=== PATIENT | female | born 1945 | race Caucasian/White ===

== ENCOUNTER 2016-08-22 08:53 | Outpatient (CLI) | payer MEDICARE | END 2016-08-22 08:54 | disposition home or self-care (01) | DX: Z12.31 Encounter for screening mammogram for malignant neoplasm of breast (principal); Z85.3 Personal history of malignant neoplasm of breast ==

== ENCOUNTER 2017-08-14 09:29 | Emergency (ER) | payer MEDICARE ==
[2017-08-14] MEDS ORDERED: DEXAMETHASONE 10 MG/ML VIAL PO STA (10:58)
--- NOTE | 2017-08-14 11:01 | ED Physician Documentation ---
PD HPI BACK PAIN - Stated complaint Stated Complaint: BACK SPASM - Chief complaint Chief Complaint: Back Pain - History obtained from History obtained from: Patient, Family - History of Present Illness Timing - onset: How many days ago (5) Timing - duration: Days (5) Timing - details: Abrupt onset, Still present Location: Lower, Left Quality: Pain, Spasm, Sharp Associated symptoms: No: Fever, Weakness, Numbness, Incontinent of urine, Unable to urinate, Hematuria, Incontinent of stool Improves with: Rest, Position Worsened by: Movement, Other (lying down or sitting) Similar symptoms before: Has not had sx before Recently seen: Not recently seen - Additional information Additional information: 71-year-old female developed some lower back pain while sitting on the couch about 1-1/2 weeks ago and then 5 days ago she developed acute left lower back pain when 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 She has had this pain in her left lower back she is not having any radiation of the pain and she has been sitting on a heating pack most of the day yesterday. Review of Systems Constitutional: denies: Fever, Chills, Fatigue Eyes: denies: Decreased vision Ears: denies: Ear pain Nose: denies: Congestion Throat: denies: Sore throat Respiratory: denies: Cough GI: denies: Vomiting : denies: Dysuria Skin: denies: Rash Musculoskeletal: reports: Back pain. denies: Neck pain, Extremity pain Neurologic: denies: Generalized weakness, Focal weakness, Numbness PD PAST MEDICAL HISTORY - Past Medical History Past Medical History: Yes Cardiovascular: High cholesterol Respiratory: None Endocrine/Autoimmune: Type 2 diabetes GI: None : None HEENT: Glaucoma Psych: None Musculoskeletal: None Derm: None - Past Surgical History Past Surgical History: Yes - Present Medications Home Medications: Ambulatory Orders Medication Instructions Recorded Confirmed Aspirin [Aspir 81] 81 mg PO DAILY 03/15/14 08/14/17 Calcium Carb/Vitamin D3/Vit K1 1,000 units PO DAILY 03/15/14 08/14/17 [Calcium + D Soft Chewable Tab] Cholesterol Med 10 mg PO DAILY 03/15/14 08/14/17 Lisinopril 5 mg PO DAILY 03/15/14 08/14/17 Metformin HCl 500 mg PO DAILY 03/15/14 08/14/17 [place]-3/Dha/Epa/Fish Oil [Fish Oil] 500 mg PO DAILY 03/15/14 08/14/17 Cyclobenzaprine [Flexeril] 10 mg PO TID PRN #20 tablet 08/14/17 HYDROcod/ACETAM 5/325 [[place] 5/325] 1 - 2 ea PO Q6H PRN #15 tablet 08/14/17 - Allergies Allergies/Adverse Reactions: Allergies Allergy/AdvReac Type Severity Reaction Status Date / Time No Known Drug Allergies Allergy Verified 03/15/14 15:19 - Social History Does the pt smoke?: No Smoking Status: Never smoker Does the pt drink ETOH?: No Does the pt have substance abuse?: No - Immunizations Immunizations are current?: Yes PD ED PE NORMAL - Vitals Vital signs reviewed: Yes (tachy and hypertenwsive ) - General General: Alert and oriented X 3, No acute distress, Well developed/nourished - HEENT HEENT: Atraumatic, PERRL - Respiratory Respiratory: No respiratory distress - Back Back: No CVA TTP, No spinal TTP, Other (There is mild tenderness to the lower lumbar paraspinous muscles on the left side. This does not extend into the sciatic notch. ) - Derm Derm: Normal color, Warm and dry, No rash - Extremities Extremities: No deformity, No edema - Neuro Neuro: No motor deficit Eye Opening: Spontaneous Motor: Obeys Commands Verbal: Oriented GCS Score: 15 - Psych Psych: Normal mood, Normal affect Results - Vitals Vitals: Vital Signs - 24 hr 08/14/17 08/14/17 09:37 11:27 Temperature 35.4 C L Heart Rate 122 H 103 H Respiratory 17 16 Rate Blood Pressure 122/82 H 107/66 O2 Saturation 99 97 Oxygen O2 Source Room air PD MEDICAL DECISION MAKING - ED course Complexity details: re-evaluated patient, considered differential, d/w patient, d/w family ED course: 71-year-old female with a history of diabetes has developed a low back pain acute spasm and has been using a heating pack. She has localized muscle spasm and here in the emergency department she is administered dexamethasone and we will provide her with some pain medication muscle relaxant as well. I have not indicated to the patient that this will interfere with her diabetes to watch her sugars closely. Departure - Departure Disposition: Home, Self Care Clinical Impression: Spasm of lumbar paraspinous muscle Condition: Stable Instructions: ED Spasm Back No Trauma Follow-Up: Mike Medley MD [Primary Care Provider] - Prescriptions: Cyclobenzaprine [Flexeril] 10 mg PO TID PRN #20 tablet PRN Reason: Spasms HYDROcod/ACETAM 5/325 [[place] 5/325] 1 - 2 ea PO Q6H PRN #15 tablet PRN Reason: Pain
[2017-08-14] MEDS ORDERED: CHERRY SYRUP 10 ML UDC PO ONE (11:09)
[2017-08-14 11:28] VITALS: BP 107/66
== END 2017-08-14 11:38 | disposition home or self-care (01) ==
LOC: ED 09:29
DX: M62.830 Muscle spasm of back (principal); M54.5 Low back pain; E11.9 Type 2 diabetes mellitus without complications; Z79.84 Long term (current) use of oral hypoglycemic drugs; Z79.82 Long term (current) use of aspirin
CPT/HCPCS: 99283; 99284; A9270

== ENCOUNTER 2017-08-27 15:06 | Outpatient (CLI) | payer MEDICARE ==
--- NOTE | 2017-08-28 15:24 | Mammography Report ---
DATE OF SERVICE: 08/27/2017 DIGITAL SCREENING MAMMOGRAM: 08/27/2017 CLINICAL INDICATION: A 71-year-old with personal history of left breast cancer , status post lumpectomy and chemoradiation, for screening. COMPARISON: 07/2016, 07/2015, 07/2014, 07/2013, 06/2013, 06/2012, 06/2011. TECHNIQUE: Routine CC and MLO projections were obtained of the breasts. FINDINGS: The breasts demonstrate scattered fibroglandular densities bilaterally. Coarse and punctate, typically benign calcifications are present. Postoperative and posttreatment changes in the left upper outer quadrant are stable. No suspicious masses, clustered microcalcifications, or regions of architectural distortion are identified. IMPRESSION: BENIGN FINDINGS. RECOMMENDATION: ROUTINE ANNUAL SCREENING UNLESS OTHERWISE CLINICALLY INDICATED. BIRADS CATEGORY 2 BENIGN FINDINGS. STANDARD QUALIFYING STATEMENTS: 1. This examination was reviewed with the aid of Computer-Aided Detection (CAD) . 2. A negative or benign imaging report should not delay biopsy if clinically suspicious findings are present. Consider surgical consultation if warranted. More than 5 % of cancers are not identified by imaging. 3. Dense breasts may obscure an underlying neoplasm. TD: 08/28/2017 16:23 MIKE
== END 2017-08-27 15:07 | disposition home or self-care (01) ==
LOC: DI 15:06
PROVIDERS: ATTEND Family Medicine
DX: Z12.31 Encounter for screening mammogram for malignant neoplasm of breast (principal); Z85.3 Personal history of malignant neoplasm of breast
CPT/HCPCS: 77067

== ENCOUNTER 2017-11-26 08:00 | Outpatient (CLI) | payer MEDICARE ==
[2017-11-26 14:03] LABS: CALCIUM 9.7 mg/dL (8.5-10.3); CREATININE 0.9 mg/dL (0.4-1.0)
== END 2017-11-26 08:01 | disposition home or self-care (01) ==
LOC: LAB.WCP 08:00
PROVIDERS: ATTEND Family Medicine
DX: E11.9 Type 2 diabetes mellitus without complications (principal); I10 Essential (primary) hypertension
CPT/HCPCS: 36415; 80048

== ENCOUNTER 2018-10-23 07:42 | Outpatient (CLI) | payer MEDICARE ==
--- NOTE | 2018-10-24 10:45 | Mammography Report ---
Reason: SCREENING MAMMO Procedure Date: 10/23/2018 Accession Number: [id number] / [id number] Procedure: [facility]RE - Screening Mammo w/Tyler CPT Code: FULL RESULT: EXAM: Screening Mammo w/Tyler DATE: 10/23/2018 8:35 AM CLINICAL HISTORY: Screening encounter. Personal history of breast cancer status post left lumpectomy and chemoradiation. TECHNIQUE: Bilateral CC and MLO views were obtained. A left laterally exaggerated CC views obtained. COMPARISON: 08/27/2017 through 07/24/2013. FINDINGS: The breasts demonstrate heterogeneously dense fibroglandular parenchyma bilaterally. Postsurgical and posttreatment changes in the left breast are stable. There are coarse typically benign right breast calcifications. No suspicious masses, clustered microcalcifications, or regions of architectural distortion are identified. IMPRESSION: Benign findings RECOMMENDATION: Routine annual screening unless otherwise clinically indicated. BIRADS CATEGORY 2: Benign findings STANDARD QUALIFYING STATEMENTS: 1. This examination was not reviewed with the aid of Computer-Aided Detection (CAD). 2. A negative or benign imaging report should not delay biopsy if clinically suspicious findings are present. Consider surgical consultation if warrented. More than 5% of cancers are not identified by imaging. 3. Dense breasts may obscure an underlying neoplasm. 4. This examination was reviewed with the aid of 3D breast imaging (tomosynthesis).
== END 2018-10-23 07:43 | disposition home or self-care (01) ==
LOC: DI 07:42
DX: Z12.31 Encounter for screening mammogram for malignant neoplasm of breast (principal); Z08 Encounter for follow-up examination after completed treatment for malignant neoplasm; Z85.3 Personal history of malignant neoplasm of breast
CPT/HCPCS: 77063; 77067

== ENCOUNTER 2019-03-17 08:00 | Outpatient (CLI) | payer MEDICARE ==
[2019-03-17 14:17] LABS: ALBUMIN 3.9 g/dL (3.2-5.5); ALBUMIN/GLOBULIN RATIO 1.2 (1.0-2.2); BILIRUBIN,TOTAL 0.5 mg/dL (0.2-1.0); CALCIUM 9.5 mg/dL (8.5-10.3); TOTAL PROTEIN 7.1 g/dL (6.7-8.2)
== END 2019-03-17 23:59 | disposition home or self-care (01) ==
LOC: LAB.WCP 08:00
PROVIDERS: ATTEND Family Medicine
DX: R94.5 Abnormal results of liver function studies (principal)
CPT/HCPCS: 36415; 80053

== ENCOUNTER 2020-02-05 10:11 | Outpatient (CLI) | payer MEDICARE ==
--- NOTE | 2020-02-09 14:56 | Mammography Report ---
BILATERAL DIGITAL SCREENING MAMMOGRAM 3D/2D: 02/05/2020 CLINICAL: Routine screening. Routine screening. Personal history of left breast cancer. Comparison is made to exams dated: 10/23/2018 mammogram, 08/27/2017 mammogram, and 08/22/2016 mammogram - [facility]. The tissue of both breasts is heterogeneously dense. This may lower the sensitivity of mammography. There is a benign calcification in the left breast. There also are benign diffuse calcifications in the right breast. Additionally, there are benign post operative findings in the left breast. No significant masses, calcifications, or other findings are seen in either breast. There has been no significant interval change. IMPRESSION: There is no mammographic evidence of malignancy. A 1 year screening mammogram is recommended. This exam was interpreted at Station ID: [id number]. NOTE: For mammograms, a report in lay terms will be sent to the patient. Approximately 15% of breast malignancies will not be visualized mammographically. In the management of a palpable breast mass, a negative mammogram must not discourage biopsy of a clinically suspicious lesion. Electronically Signed By: Madonna regan/dimple:02/05/2020 12:30:47 ACR BI-RADS Category 2: Benign Finding(s) 3342F PARENCHYMAL PATTERN: (D) - The breast(s) demonstrate(s) heterogeneously dense fibroglandular paul shannon. BI-RADS CATEGORY: (2) - 2 RECOMMENDATION: (ANNUAL) - Recommend routine annual screening mammography. [id number] 1 year screening LATERALITY: (B)
== END 2020-02-05 10:12 | disposition home or self-care (01) ==
LOC: DI 10:11
DX: Z12.31 Encounter for screening mammogram for malignant neoplasm of breast (principal)
CPT/HCPCS: 77063; 77067

== ENCOUNTER 2020-07-26 07:08 | Outpatient (CLI) | payer MEDICARE ==
[2020-07-26 07:26] LABS: BASOPHILS # (AUTO) 0.1 10^3/uL (0.0-0.1); BASOPHILS % (AUTO) 0.9 %; EOSINOPHILS # (AUTO) 0.2 10^3/uL (0.0-0.7); EOSINOPHILS % (AUTO) 3.8 %; HCT - HEMATOCRIT 44.7 % (37.0-47.0); HGB - HEMOGLOBIN 14.6 g/dL (12.0-16.0); LYMPHOCYTES # (AUTO) 1.4 10^3/uL (1.5-3.5); LYMPHOCYTES % (AUTO) 25.5 %; MEAN CORPUSCULAR HEMOGLOBIN 31.3 pg (27.0-31.0); MEAN CORPUSCULAR HGB CONC 32.7 g/dL (32.0-36.0); MEAN CORPUSCULAR VOLUME 95.9 fL (81.0-99.0); MONOCYTES # (AUTO) 0.7 10^3/uL (0.0-1.0); MONOCYTES % (AUTO) 13.3 %; PLT - PLATELET COUNT 212 10^3/uL (130-450); RED BLOOD COUNT 4.66 10^6/uL (4.20-5.40); RED CELL DISTRIBUTION WIDTH 13.3 % (12.0-15.0); WHITE BLOOD COUNT 5.5 x10^3/uL (4.8-10.8)
[2020-07-26 07:44] LABS: ALBUMIN 4.1 g/dL (3.2-5.5); ALBUMIN/GLOBULIN RATIO 1.4 (1.0-2.2); ALKALINE PHOSPHATASE 70 IU/L (42-121); ALT ALANINE AMINOTRANSFERASE 39 IU/L (10-60); AST ASPARTATE AMINOTRANSFERASE 34 IU/L (10-42); BILIRUBIN,TOTAL 0.7 mg/dL (0.2-1.0); BUN - BLOOD UREA NITROGEN 24 mg/dL (6-20); CALCIUM 9.6 mg/dL (8.5-10.3); CARBON DIOXIDE - CO2 25 mmol/L (21-32); CHLORIDE 104 mmol/L (101-111); CHOL/HDL RATIO 1.9 (<4.4); CHOLESTEROL 163 mg/dL; CREATININE 1.1 mg/dL (0.4-1.0); GFR - MDRD 49 (>89); GLUCOSE 128 mg/dL (70-100); HDL CHOLESTEROL 85 mg/dL; LDL CHOLESTEROL,CALCULATED 65 mg/dL; LDL/HDL RATIO 0.8 (<4.4); POTASSIUM 4.1 mmol/L (3.5-5.0); SODIUM 138 mmol/L (135-145); TOTAL PROTEIN 7.1 g/dL (6.7-8.2); TRIGLYCERIDES 66 mg/dL; VLDL CHOLESTEROL 13 mg/dL
[2020-07-26 07:58] LABS: THYROID STIMULATING HORMONE 2.36 uIU/mL (0.34-5.60)
[2020-07-26 13:05] LABS: ESTIMATED AVERAGE GLUCOSE 131 mg/dL (70-100); HEMOGLOBIN A1c% 6.2 % (4.27-6.07)
== END 2020-07-26 07:09 | disposition home or self-care (01) ==
LOC: LAB 07:08
PROVIDERS: ATTEND Family Medicine
DX: E78.5 Hyperlipidemia, unspecified (principal); E11.9 Type 2 diabetes mellitus without complications; I49.3 Ventricular premature depolarization
CPT/HCPCS: 36415; 80053; 80061; 83036; 83721; 84443; 85025

== ENCOUNTER 2021-03-22 10:08 | Outpatient (CLI) | payer MEDICARE ==
--- NOTE | 2021-03-23 13:27 | Mammography Report ---
BILATERAL DIGITAL SCREENING MAMMOGRAM 3D/2D: 03/22/2021 CLINICAL: Routine screening. Routine screening. Personal history of right breast cancer. Routine scre ening. Personal history of left breast cancer. Comparison is made to exams dated: 02/05/2020 mammogram, 10/23/2018 mammogram, 08/27/2017 mammogram, mammogram, and 08/17/2015 mammogram - [facility]. The tissue of both breast s is heterogeneously dense. This may lower the sensitivity of mammography. There is a benign calcification in the left breast. There also are benign diffuse calcifications in the right breast. Additionally, there are benign post operative findings in the left breast. No significant masses, calcifications, or other findings are seen in either breast. There has been no significant interval change. IMPRESSION: BENIGN There is no mammographic evidence of malignancy. A 1 year screening mammogram is recommended. This exam was interpreted at Station ID: [id number]. NOTE: For mammograms, a report in lay terms will be sent to the patient. Approximately 15% of breast malignancies will not be visualized mammographically. In the management of a palpable breast mass, a negative mammogram must not discourage biopsy of a clinically suspicious lesion. Electronically Signed By: Armand Vanessa M.D., jr/dimple:03/22/2021 12:22:24 ACR BI-RADS Category 2: Benign Finding(s) 3342F PARENCHYMAL PATTERN: (D) - The breast(s) demonstrate(s) heterogeneously dense fibroglandular paul shannon. BI-RADS CATEGORY: (2) - 2 RECOMMENDATION: (ANNUAL) - Recommend routine annual screening mammography. [id number] 1 year screening LATERALITY: (B)
== END 2021-03-22 10:09 | disposition home or self-care (01) ==
LOC: DI 10:08
DX: Z12.31 Encounter for screening mammogram for malignant neoplasm of breast (principal)

== ENCOUNTER 2021-05-10 08:00 | Outpatient (CLI) | payer MEDICARE ==
--- NOTE | 2021-05-10 16:14 | XRAY Report ---
PROCEDURE: Thoracic Spine 3 View INDICATIONS: THORACIC BACK PX AFTER A FALL TECHNIQUE: 3 views of the thoracic spine were acquired. COMPARISON: None. FINDINGS: Bones: Loss of height noted in the T4 and T5 vertebral bodies compatible with compression fractures o f indeterminate age. No suspicious bony lesions. 12 pairs of ribs are noted, and appear intact where visualized. Mild degenerative disc disease noted throughout the thoracic spine. Soft tissues: No paravertebral stripe thickening. IMPRESSION: T4 and T5 compression fractures of indeterminate age. T4 compression fracture results in approximatel y 40% loss of normal anterior vertebral body height. T5 compression fracture results in approximately 60% loss of normal anterior vertebral body height. Focal kyphosis associated with the T4 and T5 comp ression fractures. Reviewed by: Pao Castellano MD, PhD on 05/10/2021 4:13 PM PDT Approved by: Pao Castellano MD, PhD on 05/10/2021 4:13 PM PDT Station ID: [id number]
== END 2021-05-10 23:59 | disposition home or self-care (01) ==
LOC: DI.N 08:00
PROVIDERS: ATTEND Physician Assistant Medical
DX: M48.54XA Collapsed vertebra, not elsewhere classified, thoracic region, initial encounter for fracture (principal)

== ENCOUNTER 2021-05-10 10:30 | Outpatient (CLI) | payer MEDICARE ==
[2021-05-10 12:44] LABS: BASOPHILS % (AUTO) 0.5 %; EOSINOPHILS # (AUTO) 0.2 10^3/uL (0.0-0.7); EOSINOPHILS % (AUTO) 2.1 %; HCT - HEMATOCRIT 45.5 % (37.0-47.0); HGB - HEMOGLOBIN 14.5 g/dL (12.0-16.0); LYMPHOCYTES # (AUTO) 0.9 10^3/uL (1.5-3.5); MEAN CORPUSCULAR HEMOGLOBIN 29.5 pg (27.0-31.0); MEAN CORPUSCULAR HGB CONC 31.9 g/dL (32.0-36.0); MEAN CORPUSCULAR VOLUME 92.5 fL (81.0-99.0); MEAN PLATELET VOLUME 9.7 fL (7.9-10.8); MONOCYTES # (AUTO) 0.8 10^3/uL (0.0-1.0); MONOCYTES % (AUTO) 10.1 %; NEUTROPHILS # (AUTO) 6.2 10^3/uL (1.5-6.6); NEUTROPHILS % (AUTO) 76.1 %; PLT - PLATELET COUNT 304 10^3/uL (130-450); RED BLOOD COUNT 4.92 10^6/uL (4.20-5.40); RED CELL DISTRIBUTION WIDTH 14.7 % (12.0-15.0); WHITE BLOOD COUNT 8.2 x10^3/uL (4.8-10.8)
[2021-05-10 13:24] LABS: CALCIUM 10.8 mg/dL (8.5-10.3); CREATININE 1.1 mg/dL (0.4-1.0); POTASSIUM 4.2 mmol/L (3.5-5.0)
[2021-05-10 13:34] LABS: ESTIMATED AVERAGE GLUCOSE 146 mg/dL (70-100); HEMOGLOBIN A1c% 6.7 % (4.27-6.07)
== END 2021-05-10 23:59 | disposition home or self-care (01) ==
LOC: LAB.N 10:30
PROVIDERS: ATTEND Physician Assistant Medical
DX: R00.0 Tachycardia, unspecified (principal)
CPT/HCPCS: 36415; 80048; 83036; 84443; 85025

== ENCOUNTER 2021-05-12 05:55 | Emergency (ER) | payer MEDICARE ==
[2021-05-12] MEDS ORDERED: KETOROLAC 30 MG/ML VIAL IM STA (06:52)
--- NOTE | 2021-05-12 07:17 | ED Physician Documentation ---
PD HPI BACK PAIN - Stated complaint Stated Complaint: UPPER BACK PX - Chief complaint Chief Complaint: Back Pain - History obtained from History obtained from: Patient - Additional information Additional information: 1 day bilateral, constant, "burning" shoulder pain. 2 weeks ago fell in a parking lot on her left side, worse with massage and better with ibuprofen, but this is different. Seen at the walk-in clinic yesterday and had x-rays done showing age- indeterminate fractures of T4 and T5. She denies shortness of breath or chest pain. Review of Systems Ten Systems: 10 systems reviewed and negative Constitutional: denies: Fever, Chills Cardiac: denies: Chest pain / pressure, Palpitations Respiratory: denies: Dyspnea, Cough PD PAST MEDICAL HISTORY - Past Medical History Past Medical History: Yes Cardiovascular: High cholesterol Respiratory: None Endocrine/Autoimmune: Type 2 diabetes GI: None : None HEENT: Glaucoma Psych: None Musculoskeletal: None Derm: None - Past Surgical History Past Surgical History: Yes - Present Medications Home Medications: Ambulatory Orders Medication Instructions Recorded Confirmed Calcium Carb/Vitamin D3/Vit K1 1,000 units PO DAILY 03/15/14 05/12/21 [Calcium + D Soft Chewable Tab] [place]-3/Dha/Epa/Fish Oil [Fish Oil] 500 mg PO DAILY 03/15/14 05/12/21 Rosuvastatin Calcium [Crestor] 10 mg PO DAILY 05/12/21 05/12/21 flaxseed oiL [Flaxseed Oil] 1,000 mg PO DAILY 05/12/21 05/12/21 - Allergies Allergies/Adverse Reactions: Allergies Allergy/AdvReac Type Severity Reaction Status Date / Time No Known Drug Allergies Allergy Verified 05/12/21 06:08 - Social History Does the pt smoke?: No Smoking Status: Never smoker Does the pt drink ETOH?: No Does the pt have substance abuse?: No - Immunizations Immunizations are current?: Yes - POLST Patient has POLST: No PD ED PE NORMAL - Vitals Vital signs reviewed: Yes - General General: Alert and oriented X 3, No acute distress - HEENT HEENT: PERRL, EOMI - Neck Neck: Supple, no meningeal sign, No bony TTP - Cardiac Cardiac: Other (Tachycardic, reg, no murmur) - Respiratory Respiratory: No respiratory distress, Clear bilaterally - Abdomen Abdomen: Non tender - Back Back: Other (Some aged scattered bruising around the back, all small, I am unable to elicit a specific site of tenderness about the ribs or thoracic sp ine.) - Neuro Neuro: Alert and oriented X 3, Normal speech Eye Opening: Spontaneous Motor: Obeys Commands Verbal: Oriented GCS Score: 15 - Psych Psych: Normal mood, Normal affect Results - Vitals Vitals: Vital Signs - 24 hr 05/12/21 05/12/21 06:00 10:04 Temperature 36.6 C Heart Rate 121 H 99 Respiratory 16 16 Rate Blood Pressure 141/94 H 154/99 H O2 Saturation 98 99 Oxygen O2 Source Room air - EKG (time done) 0835 Rate: Rate (enter#) (100) Rhythm: Sinus tachycardia, LAE Helm: Normal Intervals: Normal IN Ischemia: Non specific changes (Q waves III/F, not II). No: ST elevation c/w ischemia, ST depression - Labs Labs: Laboratory Tests 05/12/21 05/12/21 05/12/21 08:25 08:25 08:25 WBC 8.9 RBC 5.00 Hgb 14.8 Hct 46.1 MCV 92.2 MCH 29.6 MCHC 32.1 RDW 14.6 Plt Count 296 MPV 9.0 Neut # (Auto) 6.7 H Lymph # (Auto) 1.0 L Esmeralda # (Auto) 0.9 Eos # (Auto) 0.3 Baso # (Auto) 0.0 Absolute Nucleated RBC 0.00 Nucleated RBC % 0.0 Sodium 145 Potassium 4.2 Chloride 103 Carbon Dioxide 26 Anion Gap 16.0 H BUN 27 H Creatinine 1.0 Estimated GFR (MDRD) 54 L Glucose 112 H Calcium 11.0 H Total Bilirubin 0.6 AST 33 ALT 25 Alkaline Phosphatase 157 H Troponin I High Sens 6.7 Total Protein 8.5 H Albumin 4.4 Globulin 4.1 Albumin/Globulin Ratio 1.1 Lipase 50 PD MEDICAL DECISION MAKING - ED course ED course: This is a joe 75-year-old woman with remote history of breast cancer treated in 2002 who presents with back pain after a fall 2 weeks ago and x-rays as in the HPI. T spine CT: IMPRESSION: Widespread lytic metastatic disease. Pathologic fractures at T4 and T5. An additional mild L1 fracture is also seen. At T4, there is 4 mm posterior displacement of fracture fragments, with a soft tissue mass seen at this site, with associated severe central canal narrowing, with deviation of the spinal cord to the right. Prominently enlarged mediastinal lymph nodes are seen. Bilateral adrenal masses can be seen. On the accompanying chest CT, there is a calcified left breast mass seen. Please consider PET CT for further evaluation. Oncology referral is also recommended. I spoke with Dr. Nathan Wray, neurosurgery at [facility] who agreed with transfer, no need for Decadron at this juncture. Subsequently she was accepted by Dr. Jessenia ED MD at [facility] for further evaluation and treatment. Departure - Departure Disposition: 02 Transfer Acute Care Hosp Clinical Impression: Spinal cord compression due to malignant neoplasm metastatic to spine Metastatic cancer Qualifiers: Area of secondary neoplastic involvement: bone Qualified Code(s): C79.51 - Secondary malignant neoplasm of bone Pathologic compression fracture of spine Qualifiers: Encounter type: initial encounter Qualified Code(s): M48.50XA - Collapsed vertebra, not elsewhere classified, site unspecified, initial encounter for fracture Condition: Serious
[2021-05-12] MEDS ORDERED: HYDROmorphone 1 MG/ML CARPUJECT IVP STA (07:31)
[2021-05-12 08:51] LABS: BASOPHILS % (AUTO) 0.4 %; EOSINOPHILS # (AUTO) 0.3 10^3/uL (0.0-0.7); EOSINOPHILS % (AUTO) 3.2 %; HCT - HEMATOCRIT 46.1 % (37.0-47.0); HGB - HEMOGLOBIN 14.8 g/dL (12.0-16.0); LYMPHOCYTES % (AUTO) 10.7 %; MEAN CORPUSCULAR HEMOGLOBIN 29.6 pg (27.0-31.0); MEAN CORPUSCULAR HGB CONC 32.1 g/dL (32.0-36.0); MEAN CORPUSCULAR VOLUME 92.2 fL (81.0-99.0); MONOCYTES # (AUTO) 0.9 10^3/uL (0.0-1.0); MONOCYTES % (AUTO) 9.7 %; NEUTROPHILS # (AUTO) 6.7 10^3/uL (1.5-6.6); NEUTROPHILS % (AUTO) 75.6 %; PLT - PLATELET COUNT 296 10^3/uL (130-450); RED CELL DISTRIBUTION WIDTH 14.6 % (12.0-15.0); WHITE BLOOD COUNT 8.9 x10^3/uL (4.8-10.8)
[2021-05-12 09:16] LABS: ALBUMIN 4.4 g/dL (3.2-5.5); ALBUMIN/GLOBULIN RATIO 1.1 (1.0-2.2); BILIRUBIN,TOTAL 0.6 mg/dL (0.2-1.0); POTASSIUM 4.2 mmol/L (3.5-5.0); TOTAL PROTEIN 8.5 g/dL (6.7-8.2)
--- NOTE | 2021-05-12 09:34 | CT Report ---
PROCEDURE: THORACIC SPINE WO INDICATIONS: back pain/injury TECHNIQUE: Noncontrast 3 mm thick sections acquired through the region of interest in the thoracic spine. Sagit hafsa and coronal reformats were then constructed. For radiation dose reduction, the following was used : automated exposure control, adjustment of mA and/or kV according to patient size. COMPARISON: Correlation is made with the accompanying chest CT, 05/12/2021 correlation is also made with the thoracic spine plain films, 05/10/2021 FINDINGS: Image quality: Excellent. Bones: As seen by plain film, there are compression deformities seen involving the T4 and T5 levels, with approximately 60% loss of height posteriorly at the T4 level and approximately 30% loss of heig ht anteriorly at the T5 level. At the T4 level, there is posterior displacement of fracture fragments of 4 mm. At the L1 level, there is a mild fracture seen inferiorly and on the right, 5-10%. Numerous sites of lytic metastases can be seen, involving nearly every visualized bone. There are sof t tissue components also seen involving the metastases, which is most striking involving the posterio r left lateral aspect of the T4 level, as on series 2 image 33 measuring approximately 2.2 cm. This i s seen to enhance on the accompanying contrast-enhanced chest CT. There is severe central canal narro wing seen at the T3-T4 level, with the thoracic spinal cord deviated to the right. Soft tissues: Prominently enlarged mediastinal lymph nodes are seen, including a subcarinal lymph no de that measures 4.2 x 2.6 cm in greatest axial dimension. A right paratracheal lymph node is seen an d measures 3.6 x 2.3 cm in greatest axial dimension. No paravertebral masses or hematomas. Nondependent atelectasis can be seen. Visualized posteromedial lungs appear clear. A 1.3 cm low-density right thyroid nodule is noted, as on series 2 image 19. There is a left adrenal mass seen that measures up to 3.4 cm. A right adrenal mass is seen that measu res up to 1.5 cm. Just lateral to the left kidney, there is a soft tissue nodule seen that measures 9 mm, which may represent additional metastasis. IMPRESSION: Widespread lytic metastatic disease. Pathologic fractures at T4 and T5. An additional mild L1 fracture is also seen. At T4, there is 4 mm posterior displacement of fracture fragments, with a soft tissue mass seen at th is site, with associated severe central canal narrowing, with deviation of the spinal cord to the rig ht. Prominently enlarged mediastinal lymph nodes are seen. Bilateral adrenal masses can be seen. On the accompanying chest CT, there is a calcified left breast mass seen. Please consider PET CT for further evaluation. Oncology referral is also recommended. Note: Case discussed by telephone with Dr. Peck at 8:32 AM [place] time on 05/12/2021. Reviewed by: Yevgeniy Painting MD on 05/12/2021 8:33 AM [email or web address] Approved by: Yevgeniy Painting MD on 05/12/2021 8:33 AM [place] Station ID: [id number]
--- NOTE | 2021-05-12 09:49 | CT Report ---
PROCEDURE: CHEST W INDICATIONS: back pain/injury, had labs yesterday CONTRAST: IV CONTRAST: Optiray 320 ml: 100 PO CONTRAST: *NO PO CONTRAST TECHNIQUE: After the administration of intravenous contrast, 1 mm axial images were acquired from the pulmonary apices through the posterior costophrenic angles. Axial 5 mm soft tissue kernel reconstructions were performed as well as 8 mm axial MIP and coronal and sagittal 5 mm reformations. For radiation dose reduction, the following was used: automated exposure control, adjustment of mA and/or kV according to patient size. COMPARISON: Correlation is made with the accompanying thoracic spine CT, 05/12/2021. Correlation is also made with the prior thoracic spine plain films, 05/10/2021. FINDINGS: Image quality: Excellent. Lungs and pleura: No acute air space opacities. No pleural effusions or pneumothorax. Central and peripheral airways are patent and normal in caliber. Mediastinum: Heart size is normal. No pericardial effusion. Prominently enlarged mediastinal lymph nodes are seen, including a right paratracheal lymph node that measures 2.6 x 2.3 cm and a subcarina l lymph node that measures 4.2 x 2.6 cm in greatest axial dimension. Thoracic aorta and central pulmo nary arteries are normal in size. Esophagus is normal in caliber. No hiatal hernia. Bones and chest wall: Widespread lytic metastatic disease is seen with involvement of nearly every vi sualized bone. Pathologic fractures can be seen involving T4 and T5, with posterior displacement of f racture fragments at T4 of approximately 4 mm. At the T4 level, there is a soft tissue component seen associated with the lytic metastasis, which demonstrates enhancement and mass effect. This can be se en on series 4 image 14 measuring 2.5 x 1.5 cm in greatest axial dimension, with a craniocaudal exten t of 2.5 cm, as on series 8 image 32. There is associated mass effect with severe central canal narro wing and deviation of the spinal cord to the right side. An additional mild fracture can be seen invo lving the anterior right aspect of L1, with 5-10% loss of height. No axillary or supraclavicular adenopathy by size criteria. Thyroid demonstrates normal size. Within the right thyroid, there is a low-density nodule that measures up to 12 mm.. This patient has a calcified left breast mass with retraction, as on series 4 image 30. Numerous subcutaneous enhancing nodules are seen, the largest seen involving the anterior abdominal w all just to the right of the midline, as on series 4 image 70 measuring 1.4 x 1 cm. There is also a r ight anterolateral breast/chest wall enhancing nodule seen on series 4 image 22 that measures up to 1 .2 cm. Abdomen: Bilateral adrenal nodules are seen, which measure 1.5 cm on the right and up to 3.4 cm on th e left. There is a nodule seen just lateral to the left kidney, as on series 4 image 68 that measures 9 mm. Additional peritoneal nodules are seen anteriorly, including a focus just anterior to the live r on series 4 image 59 measuring 5 mm. The visualized portions of the upper abdominal structures are otherwise within normal limits. IMPRESSION: Widespread metastatic disease is seen. Numerous lytic metastases are seen, including pathologic fractures at T4 and T5. At the T4 level, there is an enhancing soft tissue mass seen, with severe central canal narrowing. Prominently enlarged mediastinal lymph nodes are seen. Numerous enhancing subcutaneous nodules are seen, which are attributed to additional metastatic disea se. These nodules provide a convenient site for ultrasound-guided percutaneous biopsy. Bilateral adrenal nodules are seen, left larger than right. Additional enhancing peritoneal nodules are also seen, which likely represent additional foci of meta stasis. Please consider PET CT for further evaluation. Oncology referral is also recommended. This patient has a calcified left breast mass with retraction, which is regarded to be benign on prio r mammogram. Incidental note is made of: 12 mm right thyroid nodule. Note: Case discussed by telephone with Dr. Peck at 8:32 AM [place] time on 05/12/2021. Reviewed by: Yevgeniy Painting MD on 05/12/2021 8:48 AM [facility] Approved by: Yevgeniy Painting MD on 05/12/2021 8:48 AM [facility] Station ID: [id number]
[2021-05-12 10:05] VITALS: BP 154/99
[2021-05-12 13:42] LABS: B. PARAPERTUSSIS- RESP PCR PAN NOT DETECTED; B. PERTUSSIS- RESP PCR PANEL NOT DETECTED; C. PNEUMONIAE- RESP PCR PANEL NOT DETECTED; CORONAVIRUS 229E-RESP PCR NOT DETECTED; CORONAVIRUS HKU1-RESP PCR NOT DETECTED; CORONAVIRUS NL63-RESP PCR NOT DETECTED; CORONAVIRUS OC43-RESP PCR NOT DETECTED; HUMAN METAPNEUMOVIRUS NOT DETECTED; INFLUENZA A- RESP PCR PANEL NOT DETECTED; INFLUENZA B - RESP PCR PANEL NOT DETECTED; M. PNEUMONIAE- RESP PCR PANEL NOT DETECTED; PARAINFLUENZA VIRUS 1 NOT DETECTED; PARAINFLUENZA VIRUS 2 NOT DETECTED; PARAINFLUENZA VIRUS 3 NOT DETECTED; PARAINFLUENZA VIRUS 4 NOT DETECTED; RHINOVIRUS/ENTEROVIRUS NOT DETECTED; RSV- RESP PCR PANEL NOT DETECTED; SARS-CoV-2 -RESP PCR PANEL NOT DETECTED
[2021-05-12] MEDS ORDERED: IOVERSOL 320 100 ML VIAL IVP ONE (14:35)
== END 2021-05-12 11:54 | disposition short-term general hospital (02) ==
LOC: ED 05:55
DX: G95.29 Other cord compression (principal); M48.54XA Collapsed vertebra, not elsewhere classified, thoracic region, initial encounter for fracture; M48.56XA Collapsed vertebra, not elsewhere classified, lumbar region, initial encounter for fracture; C79.51 Secondary malignant neoplasm of bone; Z85.3 Personal history of malignant neoplasm of breast; R00.0 Tachycardia, unspecified; E11.9 Type 2 diabetes mellitus without complications; E04.1 Nontoxic single thyroid nodule; Z20.822 Contact with and (suspected) exposure to COVID-19
CPT/HCPCS: 36415; 71260; 72128; 80053; 83690; 84484; 85025; 87631; 93005; 96372; 96374; 99285; J1170; Q9967; 0202U

== ENCOUNTER 2021-05-12 11:45 | Outpatient (CLI) | payer MEDICARE | END 2021-05-12 11:46 | disposition short-term general hospital (02) | LOC: EMS 11:45 | PROVIDERS: ATTEND Emergency Medicine | DX: M48.50XA Collapsed vertebra, not elsewhere classified, site unspecified, initial encounter for fracture (principal); C41.2 Malignant neoplasm of vertebral column | CPT/HCPCS: A0425; A0428 ==

== ENCOUNTER 2021-06-28 11:13 | Outpatient (CLI) | payer MEDICARE ==
--- NOTE | 2021-06-28 15:19 | CONSULTATION NOTE ---
Palliative Care Consultation - Referral Referring Provider: Dr. Noam Espinal and Dr. Tab Valle Time of Visit: [id number] Referral setting: [facility] [place] Referral Reason: Breast Cancer with metastatic disease/Pain of neoplasm - Information Sources Records reviewed: Previous records reviewed History/Review of Systems obtained from: Patient, Family (spouse/DPOA) Exam limitations: No limitations - History of Present Illness Brief History of Present Illness: This is a joe 75-year-old female who was seen and evaluated today at the [facility] [place] [facility] for initial palliative care consultation due to metastatic malignancy, metastatic disease to spine, pain of neoplastic origin and advance care planning with spouse/DPOA, Bill present. Provider wore N95 mask. The patient has a history of left breast cancer stage II with a lumpectomy in 2002. She completed her treatment. Unfortunately, on 05/12/2021 she was a assisting someone at the grocery store when she sustained a Fall that resulted in upper back pain and she presented to the emergency department and had a CT thoracic spine showing "widespread metastatic disease. Pathologic fractures at T4 and T5. Additional mild L1 fracture. At T4, 4 mm posterior displacement of fracture fragments with soft tissue mass at the site with associated severe central canal narrowing and deviation of the spinal cord to the right. "She also had a CT of the chest with contrast demonstrating "welts read metastatic disease. Numerous lytic metastases." She was transferred to [facility] where she had a T3-T4 laminectomy and tumor resection as well as a T2- T6 fusion by Dr. Nathan Wray. She was discharged on a muscle relaxant as well as oxycodone 5 mg. The patient has been utilizing her oxycodone and muscle relaxant in the evening before bed and then typically in approximately 4 hours will take another oxycodone. She typically takes approximately 3 oxycodone overnight. She does not tend to take oxycodone during the day as she reports her pain will be stable and it leads to increased sedation. She sometimes finds that she is sleeping most of the day. Since her initial surgery and status post radiation to the thoracic spine her pain has improved slightly. There are also utilizing BenGay during the day. Upon initial return home from her surgery the patient reports that she was using oxycodone more routinely. Presently, she is reporting pain with specifically to her right shoulder that is intermittent. It does respond to oxycodone. The pain can shoot up to a 10 out of 10 in rating and she finds a 5 out of 10 tolerable. She is to begin Zometa infusions for her medicine static disease to the bone. She is scheduled for a DEXA scan and nuclear bone scan which is pending. She has presented with hypercalcemia and is presently undergoing daily IV fluids. She has had a reduction slowly of her calcium level. The patient reports significant fatigue in the setting of anorexia. She reports early satiety and that food tastes good but she does not have an appetite. She reports a weight loss since initial diagnosis in April 2021 from approximately 135 pounds to 119 pounds. The patient is seen well groomed in the infusion chair. She is calm and articulate. Medical/Surgical History - Past Medical History Cardiovascular: reports: High cholesterol Respiratory: reports: None Endocrine/Autoimmune: reports: Type 2 diabetes GI: reports: None SENIOR POLICY ANALYST: reports: Breast cancer (left breast 2002) : reports: None Psych: reports: None Musculoskeletal: reports: None Derm: reports: None MRSA Hx?: No - Past Surgical History Ortho: reports: Other (T3-T4 laminectomy and tumor resection as well as T2-T6 fusion 04/2021) /SENIOR POLICY ANALYST: reports: Other (Left breast lumpectomy with lymoh node dissection 2002) - Substance History Use: Uses substance without health or social issues: NONE (Occasional wine drunk; no history of tobacco use) Social History - Living Situation Living arrangement: At home Living Situation: With spouse/s.o. Support System: Patient grew up on [place]. Her father was in the [employer]. Patient grew up on [place]. Her father was in the [employer]. The patient has a brother who she has been estranged from for a number of years. The patient and her spouse, Ibrahima have been for approximately 52 years. The patient and her spouse have 1 son, Riki who resides in [place] and a granddaughter. They communicate with her son via email daily. Their son is visiting next week for an entire week. Until recently the patient and her spouse will walk 50 minutes twice a day. Family History - Family History Family History: Mother: , Father: Family History Comment/Other: Father of old age in his 90s. Had Parkinson's disease. Mother in her 70s due to Alzheimer's dementia. Medications/Allergies - Medications Home Medications: Ambulatory Orders Medication Instructions Recorded Confirmed Calcium Carb/Vitamin D3/Vit K1 1,000 units PO DAILY 03/15/14 06/26/21 [Calcium + D Soft Chewable Tab] Rosuvastatin Calcium [Crestor] 10 mg PO DAILY 05/12/21 06/26/21 oxyCODONE [Roxicodone] 2.5 - 5 mg PO Q4H PRN 06/12/21 06/28/21 tiZANidine [Zanaflex] 4 mg PO PRN PRN 06/12/21 06/28/21 Letrozole 2.5 mg PO DAILY 06/13/21 06/26/21 Senna [Senokot] 1 tab PO TID PRN 06/28/21 06/28/21 dexAMETHasone [Decadron] 2 mg PO DAILY MDD or as directed 06/28/21 06/28/21 polyethylene glycoL 3350 [Miralax] 17 gm PO DAILY PRN 06/28/21 06/28/21 - Allergies Allergies/Adverse Reactions: Allergies Allergy/AdvReac Type Severity Reaction Status Date / Time No Known Drug Allergies Allergy Verified 06/28/21 18:57 Review of Systems - Constitutional Constitutional: reports: Fatigue, Weight loss (139lb to 119lb). denies: Fever - Eyes Eyes: reports: Corrective lenses - Ears, Nose & Throat Ears, Nose & Throat: denies: Hearing aids - Cardiovascular Cardiovascular: denies: Chest pain, Edema - Respiratory Respiratory: denies: Cough - Gastrointestinal Gastrointestinal: reports: Constipation (controlled with PRN miralax), Poor appetite, Early satiety. denies: Abdominal pain, Change in bowel habits, Vomiting - Genitourinary Genitourinary: denies: Dysuria - Musculoskeletal Musculoskeletal: reports: Muscle aches, Stiffness, Other (Right shoulder pain). denies: Assistive devices, Transfer issues - Integumentary Integumentary: denies: Rash - Neurological Neurological: reports: General weakness, Memory problems (some reported brain fog intermittently). denies: Headache, Dizziness - Hematologic/Lymphatic Hematologic/Lymph: reports: Anemia (Iron Deficiency Anemia). denies: Recurrent infections - All Other Systems All Other Systems: reports: Reviewed and negative Physical Exam - Physical Exam General Appearance: positive: No acute distress, Alert, Other (thin and well groomed) Eyes Bilateral: positive: Normal inspection, Other (+corrective lenses) ENT: positive: No signs of dehydration Neck: positive: Trachea midline Cardiovascular: positive: Regular rate & rhythm, No murmur Respiratory: positive: No respiratory distress, Breath sounds nml. negative: Rales Abdomen: positive: Non-tender, Soft, Nml bowel sounds. negative: Distended Skin: positive: Pallor Extremities: positive: No pedal edema, Other (+pain reported to right shoulder) Neurologic/Psychiatric: positive: Oriented x3, Mood/affect nml Palliative Care - POLST Patient has POLST: No Pain: Severity (5/10), Comment (Pain to right shoulder that is responsive to oxycodone but patient is reluctant to take consistently.) Tiredness/Fatigue: Moderate (4-6) Drowsiness/Sedation: Moderate (4-6) Nausea: None Anorexia: Severe (7-10), Weight loss Dyspnea: None Depression: None Anxiety: Severe (7-10) Sleep: Sleeps well Constipation: Managed, Intermittent constipation Performance Status: Is ambulatory without an assistive device. Her previous usual activity has been reduced. Continues to maintain her ADLs. - Palliative Care Discussion: Patient unfortunately sustained a fall in the grocery store that ultimately resulted in an incidental finding of a soft tissue mass at T4 as well as pathological fractures and widespread metastatic disease. If this fall had not occurred, the patient would not have been diagnosed with metastatic breast c ancer. She had previously been treated for left-sided breast cancer in 2002. She does express some anxiety regarding navigating and managing her symptoms and expectations moving forward. She does present with pain most specifically to her right shoulder that is intermittent and has improved since her initial laminectomy and tumor resection by neurosurgery as well as radiation therapy. The patient is typically utilizing oxycodone 5 mg 3 times per day. She expresses some hesitation regarding utilization on a more frequent basis despite reported discomfort and normalized these feelings regarding usage and set expectations that moving forward may need to transition to long-acting pain medication to adequately control pain if the pain were to worsen. Also reviewed at length with discussed option of utilizing opioid therapy can lead to side effect of constipation and reviewed bowel regimen and utilization of MiraLAX and senna to optimize and have a bowel movement every other day that is soft as a goal. Impression and Recommendations - Palliative Care Impression: This is a joe 75-year-old female with metastatic breast cancer to the spine with history of T4 spinal cord compression In the setting of hypercalcemia and bony mets pain to the right shoulder. Her symptom burden is significant for anorexia, fatigue, and bony neck pain. Would benefit from introduction of dexamethasone 2 mg daily for energy, appetite stimulation and pain management.Palliative care to continue to build rapport, explore goals of care, provide care coordination, pain and symptom management and anticipatory guidance. Recommendations/Counseling Done: 1. Bony metastatic disease pain. Most pacifically to right shoulder. Metastases on imaging noted to be diffuse. Is pending DEXA scan and nuclear bone scan for part of her staging work-up. Would benefit from introduction of dexamethasone 2 mg daily as a starting point to assist with bone pain, appetite stimulation, and overall wellbeing. Discussed at length with patient and spouse/DPOA purpose, dose, and side effects of dexamethasone. Advised to not take on an empty stomach and to not take after 2 PM in the afternoon to reduce potential interference with sleep. Room to titrate up based on the patient's response. Would expect with introduction of dexamethasone that we will be able to titrate back on her use of tizanidine. Will gradually albert dexamethasone based on response. To receive Zometa infusions. Lengthy discussion with patient and spouse regarding pain management. Discussed optimization of pain management is to improve comfort and maintain function. During the day if patient needs additional pain medication advised to trial taking 2.5 mg of oxycodone to reduced sedative effects. Therefore, advised to take oxycodone half a tablet to 1 tablet every 4 hours as needed and to keep a log regarding administration. Discussed with patient and spouse moving forward palliative care will manage pain management and opioid medications to come from 1 provider and through 1 pharmacy with understanding and verbalization made.CTM. 2. Anorexia with weight loss. Discussed small frequent meals throughout the day. Introduced utilization of smoothies and utilizing protein powder for additional caloric intake. We will also introduce dexamethasone 2 mg daily for appetite stimulation as well. Continue to monitor. 3. Hypercalcemia of malignancy due to metastatic disease. Presently undergoing daily intravenous fluids with Lasix and to begin Zometa infusion. Oncology following. 4. 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 Status post T4 decompression and radiation therapy 04/2021. Presently on letrozole and to begin Ibrance. Patient has a history of left breast cancer originally diagnosed in 2002. 4. Advanced care planning. Patient has healthcare power of insurance defense attorney paperwork with spouse as designated healthcare power of insurance defense attorney. Presently, the patient expresses concerns regarding navigating multiple specialists and providers and aware that palliative care can assist with care coordination and putting the pieces of the puzzle together and for this, the patient and spouse are grateful to have that mediation. Given the patient has metastatic disease we will continue to build rapport and establish goals that are important to the patient to help achieve. Total time spent 50 minutes with greater than 50% of the spent in counseling and coordination of care with the patient and spouse/MINAL, Bill; coordination with MAC RN; examination of patient; review of palliative care philosophy; review of dexamethasone with purpose, dose, and side effects; setting expectations r egarding pain management; pain and symptom management as well as anticipatory guidance. Disclaimer: The chart note was formulated using voice recognition technology and unfortunately sound alike errors may occur.
== END 2021-06-28 11:14 | disposition home or self-care (01) ==
LOC: PC 11:13
PROVIDERS: ATTEND Nurse Practitioner Family
DX: Z51.5 Encounter for palliative care (principal); G89.3 Neoplasm related pain (acute) (chronic); C50.912 Malignant neoplasm of unspecified site of left female breast; C79.51 Secondary malignant neoplasm of bone; E83.52 Hypercalcemia; R53.83 Other fatigue; R63.0 Anorexia; E11.9 Type 2 diabetes mellitus without complications; D50.9 Iron deficiency anemia, unspecified; M25.511 Pain in right shoulder; Z98.1 Arthrodesis status; Z79.52 Long term (current) use of systemic steroids; Z79.899 Other long term (current) drug therapy
CPT/HCPCS: 99204

== ENCOUNTER 2021-06-28 14:13 | Outpatient (CLI) | payer MEDICARE ==
--- NOTE | 2021-06-26 10:31 | ONCOLOGY/HEMATOLOGY VISIT ---
HEME/ONC PROGRESS NOTE: cc: Noam Espinal MD; Nathan Aragon MD (neurosurgery in [place]) ONCOLOGY HISTORY: 1. 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 a. s/p T4 Decompression and radiation therapy 04/2021; b. Metastasis to diffuse bones, bilateral adrenal mass, perinephritic nod ules, subcutaneous skin nodules, c. Letrozole/Ibrance 2. Hypercalcemia of malignancy due to metastatic disease. Ronald=15. 06/26/21 a. Intravenous fluids, Lasix and Zometa infusion 3. hx of stage II (T2N1M0) left breast cancer, UOQ, 2.4cm, IDC with mucinous component, 08/09 nodes+; ER/[place]+, HER2- a. lumpectomy/ALND, 06/2003; b. adj chemo ddAC, q2wx4; Taxol qwx12; XRT; c. Letrozole from 01/2004; till 06/2009; 4. Hx of GERTRUDIS. 2006; a. s/p EGD and colonoscopy; resolved by oral iron. ASSESSMENT/PLAN: 1. Metastatic cancer of most likely breast origin. Diffuse disease as noted above. a. Letrozole is given. She will start first dose today. Pending Ibrance prescription procurement. b. Pending completion of her staging work-up with nuclear bone scan and DEXA scan. c. NGS testing has been requested via [employer]. d. Follow-up next week for lab and clinical evaluation. 2. Hypercalcemia of malignancy with symptoms of fatigue, loss of appetite. a. Urgent normal saline 1 L today with Lasix 20 mg IV. She will then return daily for 1 L saline and calcium check. Once normalized calcium level, could discontinue daily hydration. b. We will meet next week to reassess. 3. Renal insufficiency. Creatinine 1.3. Likely due to dehydration and hypercalcemia. Above management well help in this regard 4. Cancer pain and Palliative care. a. Has oxycodone on hand. Refer to palliative care made for this week. 5. Prognosis and end-of-life discussion. Not curable condition. We will be introducing palliative care for long-term goal of care planning HISTORY OF CURRENT ILLNESS/REVIEW OF SYSTEMS: Krissy is accompanied by her . She presented with sudden onset of back pain after a fall in the grocery store in 04/2021. Work-up in the emergency room reviewed T4 compression fracture with spinal cord compression. She was transferred to [facility] in [place] where she underwent a laminectomy on 05/15/21. Final pathology reviewed ER positive at 30% of the cells with neuroendocrine differentiation. Ki-[address] abdomen pelvis on 05/13/21 reviewed numerous abdominal lesions, bilateral adrenal mass, left side 2.3 x 4.5 cm right side 1.8 x 2.5 cm. There were bilateral perinephric nodules up to 1.1 cm. Many subcutaneous skin nodules also noted. CT chest did not reveal parenchymal lung metastases. She did have mediastinal and subcarinal adenopathy. Bilateral mammography was seen in 02/2021 without primary breast lesion. No brain MRI done. She underwent laminectomy. She is currently receiving radiation therapy to the T4 spine. Today she reports very tired. No appetite. some nausea. Back pain is significant but for guarding to take oxycodone. Decreased physical activity. Occasional confusions. PMF SOCIAL HISTORY: . Lives in [place]. No smoker, or drink. PHYSICAL EXAM: Weight 55 kg. BP 150/100. HEENT; no jaundice, Extremity; no clubbing, no peripheral edema, no cyanosis, Skin. No new rash. No petechia or purpura. Today's visit involves high complexity decision making for the high risk/life threatening diagnosis of metastatic/recurrent Breast cancer and other comorbidities, requiring anti-cancer/chemotherapy with significant toxicities, that require intensive monitoring, and management of cancer-related symptoms and side effects from anti-cancer treatments as listed in assessment and plan. Medical Decision Making: Number and Complexity of Problems Addressed: High - Acute or chronic illness that poses a threat to life or bodily function, cancer, need for chemotherapy, severe side effects from chemotherapy. Amount and/or complexity of data reviewed and analyzed: Review of external notes, laboratory/radiology results, and test ordering. Assessment requiring independent historian. Discussion of management or test interpretation with external physician Independent interpretation of test performed by another qualified health client care coordinator Risk of Complications and/or Morbidity or Mortality of Patient Management: High - o Decision regarding initiation of anti-cancer therapy, o drug therapy requiring intensive monitoring for toxicity o Decision regarding hospitalization o Decision not to resuscitate or to de-escalate care because of poor prognosis. Overall: High Clinical Data: Allergies No Known Drug Allergies Allergy (Verified 05/12/21 06:08) Home Medications Calcium Carb/Vitamin D3/Vit K1 [Calcium + D Soft Chewable Tab] 1,000 units PO DAILY 03/15/14 [History Last Taken 05/11/21] [place]-3/Dha/Epa/Fish Oil [Fish Oil] 500 mg PO DAILY 03/15/14 [History Last Taken 05/11/21] Rosuvastatin Calcium [Crestor] 10 mg PO DAILY 05/12/21 [History Last Taken 05/11/21] flaxseed oiL [Flaxseed Oil] 1,000 mg PO DAILY 05/12/21 [History Last Taken 05/11/21] Rosuvastatin Calcium [Crestor] 5 mg PO DAILY 06/12/21 [History Last Taken Unknown] oxyCODONE [Roxicodone] 5 mg PO PRN PRN 06/12/21 [History Last Taken Unknown] tiZANidine [Zanaflex] 4 mg PO PRN PRN 06/12/21 [History Last Taken Unknown] Letrozole 2.5 mg PO DAILY 06/13/21 [History Last Taken Unknown]
--- NOTE | 2021-06-28 19:48 | DEXA Report ---
PROCEDURE: Dexa Spine and/or Hip INDICATIONS: BONE CA TECHNIQUE: Dual energy x-ray absorptiometry (DXA) was performed on a [employer] System. Regions measur ed are the AP Spine, femoral neck, and if needed forearm. COMPARISON: None. FINDINGS: Lumbar Spine: Bone Mineral Density 0.929 g/cm/cm,T score -2.1, osteopenia Left Femoral Neck: Bone Mineral Density 0.737 g/cm/cm, T score -2.2, osteopenia (T score greater or equal to -1.0: NORMAL) (T score from -1.1 to -2.4: OSTEOPENIA) (T score less than or equal to -2.5 to: OSTEOPOROSIS) Impression: Bone mineral density, most consistent with osteopenia. Patients with diagnosis of osteoporosis or osteopenia should have regular bone mineral density assess ment. For those eligible for Medicare, routine testing is allowed once every 2 years. Testing frequ ency can be increased for patients who have rapidly progressing disease or for those who are receivin g medical therapy to restore bone mass. Reviewed by: Javier Perez MD on 06/28/2021 7:47 PM PST Approved by: Javier Perez MD on 06/28/2021 7:47 PM PST Station ID: [id number]
== END 2021-06-28 14:14 | disposition home or self-care (01) ==
LOC: DI 14:13
PROVIDERS: ATTEND Internal Medicine Hematology & Oncology
DX: M85.89 Other specified disorders of bone density and structure, multiple sites (principal)

== ENCOUNTER 2021-07-05 08:48 | Outpatient (CLI) | payer MEDICARE ==
--- NOTE | 2021-07-03 11:34 | ONCOLOGY/HEMATOLOGY VISIT ---
HEME/ONC PROGRESS NOTE: cc: Noam Espinal MD ONCOLOGY HISTORY: 1. 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 a. s/p T4 decompression Spine surgery and radiation therapy in 04/2021; b. Diffuse bone metastasis, bilateral adrenal mass, perinephritic nodules, subcutaneous skin nodules. c. Letrozole from 06/26/2021 and Ibrance from 07/03/21 2. Hypercalcemia of malignancy due to metastatic disease. Calcium 15 on 06/26/21 a. IV fluid, Lasix and Zometa infusion. Resolved at this point. 3. Malignant cachexia. a. Dexamethasone 2 mg daily. Going to try marijuana. 4. Cancer pain in the right scapula. Oxycodone as needed. 5. hx of stage II (T2N1M0) left breast cancer, UOQ, 2.4cm, IDC with mucinous component, 08/09 nodes+; ER/NE+, HER2- a. lumpectomy/ALND, 06/2003; b. adj chemo ddAC, q2wx4; Taxol qwx12; XRT; c. Letrozole from 01/2004; till 06/2009; 6. Hx of GERTRUDIS. 2006; a. s/p EGD and colonoscopy; resolved by oral iron. ASSESSMENT/PLAN: 1. Metastatic breast cancer. High tumor marker CA 15-3 and CA 27.29. a. Continue on letrozole 2.5 mg daily nonstop; and start Ibrance today 125 mg daily x21 days, q. 28-day cycle. Toxicities from Ibrance explained. b. Need weekly blood test and monitoring for the next few weeks until stabilization. 2. Hypercalcemia of malignancy and bone mets. Finally normalized calcium level. We will continue to monitor closely. a. Received in Zometa. Next dose will be 3 weeks [week of 07/24/21] from now and then monthly 3. Malignant cachexia. Improving appetite with addition of dexamethasone. She may try marijuana prior ducts for a trial. 4. Cancer pain And Palliative Care. a. Does have oxycodone. Seeing palliative care service now. b. Nuclear bone scan is coming up. That may help to identify foci of diseases correlating to pain. We could give radiation therapy if pain persists. 5. Renal insufficiency and abnormal electrolytes. a. Encouraged electrolytes containing fluids. Continue on potassium 20 mEq daily for now 6. Elevated liver enzyme. Likely medication effect. We will discontinue her Crestor cholesterol medication. HISTORY OF CURRENT ILLNESS/REVIEW OF SYSTEMS: Krissy is here for ongoing care accompanied by her Ibrahima. Detailed cancer history as previously summarized on 06/26/21. Today she is still feeling tired. Low appetite. Also having pain in the right scapular region. Did have some weakness of the lower extremities required help to stand up. Once up she is able to walk without assistance. No fever or chills. Mind is clearer. SOCIAL HISTORY: . No smoke. No drink. Lives in [place] PHYSICAL EXAM: Weight 53 Kg BP 105/64. HEENT; no jaundice, Lung; clear to auscultation and percussion. No signs of pleural effusion by percussion. Heart; regular rhythm no murmur BREAST: Abdomen; soft nontender, no hepatosplenomegaly, no signs of ascites. Central obesity noted. Extremity; no clubbing, no peripheral edema, no cyanosis, Skin. No new rash. No petechia or purpura. Lymph nodes: no palpable adenopathy in the cervical, supraclavicular fossa, or axilla areas. BACK: Scar healing well on the upper spine. Does have tenderness on the right scapular angle region Today's visit involves high complexity decision making for the high risk/life threatening diagnosis of metastatic/recurrent breast cancer and other comorbidities, requiring anti-cancer/chemotherapy with significant toxicities, that require intensive monitoring, and management of cancer-related symptoms and side effects from anti-cancer treatments as listed in assessment and plan. Medical Decision Making: Number and Complexity of Problems Addressed: High - Acute or chronic illness that poses a threat to life or bodily function, cancer, need for chemotherapy, severe side effects from chemotherapy. Amount and/or complexity of data reviewed and analyzed: Review of external notes, laboratory/radiology results, and test ordering. Assessment requiring independent historian. Discussion of management or test interpretation with external physician Independent interpretation of test performed by another qualified health customer care associate Risk of Complications and/or Morbidity or Mortality of Patient Management: High - o Decision regarding initiation and continuation of anti-cancer therapy, o drug therapy requiring intensive monitoring for toxicity o Decision regarding hospitalization o Decision not to resuscitate or to de-escalate care because of poor prognosis. Overall: High Clinical Data: Allergies No Known Drug Allergies Allergy (Verified 06/28/21 18:57) Home Medications Calcium Carb/Vitamin D3/Vit K1 [Calcium + D Soft Chewable Tab] 1,000 units PO DAILY 03/15/14 [History Last Taken 05/11/21] Rosuvastatin Calcium [Crestor] 10 mg PO DAILY 05/12/21 [History Last Taken 05/11/21] oxyCODONE [Roxicodone] 2.5 - 5 mg PO Q4H PRN 06/12/21 [History Last Taken Unknown] tiZANidine [Zanaflex] 4 mg PO PRN PRN 06/12/21 [History Last Taken Unknown] Letrozole 2.5 mg PO DAILY 06/13/21 [History Last Taken Unknown] Senna [Senokot] 1 tab PO TID PRN 06/28/21 [History Last Taken Unknown] dexAMETHasone [Decadron] 2 mg PO DAILY MDD or as directed 06/28/21 [History Last Taken Unknown] polyethylene glycoL 3350 [Miralax] 17 gm PO DAILY PRN 06/28/21 [History Last Taken Unknown]
--- NOTE | 2021-07-05 17:33 | Nuclear Medicine Report ---
PROCEDURE: Bone Whole Body INDICATIONS: BONE CA RADIOPHARMACEUTICAL: 26.2 mCi Tc-99m MDP IV. TECHNIQUE: Delayed whole-body scintigrams were obtained approximately 3-4 hours after intravenous injection of r adiotracer. Anterior and posterior views were acquired from vertex to feet. Additional left and rig ht oblique views of the skull and cervical spine were obtained. COMPARISON: CT thoracic spine, 05/12/2021. CT thorax with contrast, 05/12/2021. FINDINGS: There are multiple foci of abnormal uptake involving skull, cervical, thoracic spine and l umbar spine, sacrum, inferior sternum, bony pelvis bilaterally, proximal left numerous and femurs eris aterally, consistent with widespread osseous metastases. IMPRESSION: Widespread stress osseous metastases involving both the axial and appendicular skeletons . Reviewed by: Megan Benjamin MD on 07/05/2021 5:32 PM PST Approved by: Megan Benjamin MD on 07/05/2021 5:32 PM PST Station ID: [id number]
== END 2021-07-05 08:49 | disposition home or self-care (01) ==
LOC: DI 08:48
PROVIDERS: ATTEND Internal Medicine Hematology & Oncology
DX: C41.2 Malignant neoplasm of vertebral column (principal); C79.51 Secondary malignant neoplasm of bone; C79.71 Secondary malignant neoplasm of right adrenal gland; C79.72 Secondary malignant neoplasm of left adrenal gland
CPT/HCPCS: 78306

== ENCOUNTER 2021-07-06 09:35 | Outpatient (CLI) | payer MEDICARE ==
--- NOTE | 2021-07-06 13:43 | CONSULTATION NOTE ---
Palliative Care Follow Up - Referral Referring Provider: Dr. Tab Valle Time of Visit: [id number] Referral setting: Home Referral Reason: Pain of neoplastic origin/Breast Cancer with metastatis disease - Information Sources Records reviewed: Previous records reviewed History/Review of Systems obtained from: Patient, Family (spouse/DPOA) Exam limitations: No limitations - History of Present Illness Update Brief HPI Update: This is a joe 75-year-old female who was seen and evaluated today within her home due to pain of neoplastic origin, anorexia, and metastatic breast cancer with her spouse/DPOA, Bill present. Provider wore N95 mask. The patient has a history of left breast cancer stage II with a lumpectomy in 2002. She completed her treatment. Unfortunately on 05/12/2021 she was assisting someone in the grocery store when she sustained a fall that resulted in upper back pain when she presented to the emergency department and she had a CT thoracic spine showing "widespread metastatic disease with pathologic fractures at T4 and T5 as well as a soft tissue mass at T4. She was transferred to [facility] where she had a T3-T4 laminectomy and tumor resection as well as a T2-T6 fusion by Dr. Nathan Wray. Since that procedure she has been taking oxycodone 5 mg as well as a muscle relaxant for pain and discomfort. The patient reports that she is having right scapula pain. She avoids laying on her right side because of this. She is unable to do simple tasks in the kitchen as she will have pain that shoots up to her scapula when she is picking up heavy items. Postoperatively after her surgery in April she had limitations of was not lifting anything more than 10 pounds. She finds that she has some brain fog when she takes the oxycodone during the day most especially. She trialed taking 2.5 mg of oxycodone however, did not find this effective for pain relief of 1 back to 5 mg. Yesterday she had a nuclear bone scan and laying on the table exacerbated pain. She typically takes approximately 3-4 5 mg oxycodones per day which equates to 15 to 20 mg of oxycodone. Yesterday, Due to increased pain and she took 25 mg of oxycodone. Due to pain from bony metastases she was initiated on dexamethasone 2 mg on 06/28/2021 without noted perceived improvement with her bony pain this was increased to 2 mg twice a day. Again, the patient as well as her spouse does not perceive an improvement of her overall pain and energy level. She has noticed an increase in her overall appetite. Her blood glucose levels have increased slightly since introduction of dexamethasone in the setting of her history of impaired fasting glucose. She no longer checks blood glucose levels and has not for "many years." No increased reports of thirst or voiding. Past Medical History: Patient has a history of hyperlipidemia, left breast cancer in 2002, left breast lumpectomy a lymph with lymph node dissection in 2002, impaired glucose previously on Metformin and has not been on for many years; T3-T4 laminectomy with tumor resection as well as T2-T6 fusion 04/2021, history of iron deficiency anemia. Social History - Living Situation Living arrangement: At home Living Situation: With spouse/s.o. Support System: Patient [place] up [place] [facility]. She has a brother whom she has been estranged from for a number of years. The patient and her spouse, Ibrahima have been for approximately 52 years. They have 1 son, Riki who resides in [place] as well as her granddaughter. The patient's son arrives today from [place] for a weeklong visit. The patient was frustrated that she was attempting to Ricci the house for her son's arrival but was limited by her pain. Medications/Allergies - Medications Home Medications: Ambulatory Orders Medication Instructions Recorded Confirmed oxyCODONE [Roxicodone] 5 mg PO Q4H PRN 06/12/21 07/06/21 tiZANidine [Zanaflex] 4 mg PO PRN PRN 06/12/21 07/06/21 Letrozole 2.5 mg PO DAILY 06/13/21 07/06/21 dexAMETHasone [Decadron] 2 mg PO DAILY MDD x7 days then d/c 06/28/21 07/06/21 polyethylene glycoL 3350 [Miralax] 17 gm PO DAILY PRN 06/28/21 07/06/21 Palbociclib [Ibrance] 75 mg PO DAILY 07/03/21 07/06/21 Calcium Carbonate/Vitamin D3 1 tab PO DAILY 07/06/21 07/06/21 [Calcium 500 mg-Vit D3 600 Unit] Magnesium Oxide [Magnesium] 1 cap PO DAILY 07/06/21 07/06/21 Morphine Sulfate [Ms Contin] 15 mg PO DAILY 07/06/21 07/06/21 Naloxone HCl [Narcan] PRN MDD as directed 07/06/21 Sennosides/Docusate Sodium [Senna 1 tab PO QPM 07/06/21 07/06/21 Plus 8.6-50 mg Tablet] Vitamin D 3 2,000 unit PO DAILY 07/06/21 flaxseed oiL [Flaxseed Oil] 1,400 mg PO DAILY 07/06/21 07/06/21 - Allergies Allergies/Adverse Reactions: Allergies Allergy/AdvReac Type Severity Reaction Status Date / Time No Known Drug Allergies Allergy Verified 06/28/21 18:57 Review of Systems - Constitutional Constitutional: reports: Fatigue, Weight loss (history of weight loss). denies: Fever - Eyes Eyes: denies: Irritation - Ears, Nose & Throat Ears, Nose & Throat: denies: Dentures - Cardiovascular Cardiovascular: denies: Chest pain, Edema - Respiratory Respiratory: denies: Cough, Wheezing - Gastrointestinal Gastrointestinal: reports: Constipation (bowel movement every 2-3 days), Early satiety, Other (Appetite improved with dexamethasone, no longer drinking grape juice). denies: Abdominal pain, Diarrhea, Nausea, Vomiting - Genitourinary Genitourinary: denies: Dysuria - Musculoskeletal Musculoskeletal: reports: Stiffness, Other (right scapula pain without numbness or tingling to RUE). denies: Assistive devices, Transfer issues - Neurological Neurological: reports: General weakness, Memory problems ("oxy brain"). denies: Headache, Numbness - Endocrine Endocrine: reports: Other (impaired fasting glucose previously on metformin "years ago"; hypercalcemia due to metastasis) - All Other Systems All Other Systems: reports: Reviewed and negative Physical Exam - Vital Signs Pulse Rate: 89 O2 Saturation: 97 Blood Pressure: 112/58 (right arm) - Physical Exam General Appearance: positive: No acute distress, Alert, Cachetic Eyes Bilateral: positive: Normal inspection, Other (+corrective lenses) ENT: positive: No signs of dehydration Neck: positive: No JVD, Trachea midline Cardiovascular: positive: Regular rate & rhythm Respiratory: positive: No respiratory distress, Breath sounds nml Abdomen: positive: Non-tender, Soft, Nml bowel sounds Skin: positive: No symptoms Extremities: positive: Full ROM, No pedal edema, Other (B/l scapula nontender to deep palpation) Neurologic/Psychiatric: positive: Oriented x3, Mood/affect nml Palliative Care - POLST Patient has POLST: No Pain: Pain worsening (Right scapula taking 3-5 of 5mg oxycodone per day with muscle relaxant intermittently) Constipation: Managed, Intermittent constipation - Palliative Care Discussion: The patient had imaging performed last week at [facility] at the request of her neurosurgeon, Dr. Wray and is anxious to know the final report and is pending to have a telephone call conversation with him later today. The patient had a nuclear bone scan with pending results with oncologist scheduled for Saturday. She had increased pain after laying on a flat surface yesterday resulting in increased usage of her oxycodone for pain management. Despite increase of dexamethasone she has not noted a benefit with her overall pain management. Given her overall pain, comfort level, and inability to perform functional tasks introduced the role of long-acting pain medication such as MS Contin and recommend utilization in the evening at 15 mg MS Contin however, patient wishes to trial in the morning to reduce to sedative properties. Set expectations that will titrate upward. Here to reduce based on her response. Pain is most concentrated to her right scapula. Potential for possible radiation therapy based on imaging results if a target is identified. Patient is open to further radiation however, she is reluctant if any further surgeries are recommended given the unknowns postoperatively. Results - Lab Results Lab results reviewed: Yes Lab and Imaging Results: 07/03/2021 Sodium 141, potassium 4.1, BUN 19, creatinine 1.5, GFR 34, glucose 170, calcium 10.2, AST 140, ALT 27, alk [id number], albumin 3.7, CEA 63.6, CA-125 antigen 44 Impression and Recommendations - Palliative Care Impression: This is a joe 75-year-old female with metastatic breast cancer to the spine with history of T4 spinal cord compression in the setting of bony metastasis pain to her right scapula. Her symptom burden is significant for anorexia, fatigue, and bony met pain. Did not find a benefit for pain management with introduction of dexamethasone and therefore, will taper and discontinue. Given her overall usage of oxycodone would benefit to transition to MS Contin and will start at MS Contin 15 mg once in the morning with goal to titrate to twice daily dosing based on the patient's response. Palliative care will continue to build rapport, explore goals of care, provide care coordination, pain and symptom management as well as anticipatory guidance. Recommendations/Counseling Done: 1. Pain of neoplastic origin. Noted more specifically to right scapula. Status post nuclear bone scan 07/05/2021 to assist with identifying foci and potential for radiation therapy. Has follow-up with oncology on 07/10 for review. Patient did not note a positive response with her pain with initiation of dexamethasone despite dose increase. Therefore, will taper and discontinue. Reduce to dexamethasone 2 mg daily in the morning with food and then x7 days and then discontinue. There is room to resume as an adjunct if patient notes worsening symptoms as a retrial. Patient presently taking approximately 15 to 25 mg of oxycodone per day. Will transition to MS Contin for long-acting opioid therapy. Presently patient is typically taking approximately 30 MEDAnd will trial first thing in the morning with MS Contin 15 mg with goal and expectations to titrate to MS Contin 50 mg twice daily. Discussed time to effect of MS contin and reviewed utlization of oxycodone 5mg every 4 hours for breakthrough pain and to continue to record for monitoring and titration of MS Contin with understanding verbalized. Patient and spouse counseled on opioid safety, particular around driving. Has Narcan in home and reviewed use. Continue to monitor and titrate MS Contin based on response to optimize comfort and function . 2. Anorexia with weight loss. Discussed continue small frequent meals. Positive response with appetite stimulation from dexamethasone 2 mg daily however, given lack of benefit and energy and pain response as it is not appropriate long-term will taper and discontinue but may reintroduce in the future. Did discuss utilization of CBD and patient and spouse to do further independent research before initiation if opt to pursue this. 3. Constipation. Initiate senna 8.6 mg/Doucaste mg take 1 tablet nightly for constipation. Room to titrate up and reviewed dose titration of senna/doucaste as well as patient has MiraLAX within the home and reviewed titration of MiraLAX. Discussed that opioid therapy can contribute to constipation and the goal is to have a soft bowel movement every other day with understanding verbalized. 4. 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 Status post T4 decompression and radiation therapy 04/2021. Patient presently on letrozole and Ibrance. Has a history of left breast cancer originally diagnosed in 2002. Followed by oncology. Total time spent 55 minutes with greater than 50% of the spent in counseling and coordination of care with the patient and spouse/DPOA; review of pain and symptom management; examination of the patient; and anticipatory guidance. Disclaimer: The chart note was formulated using voice recognition technology and unfortunately sound alike errors may occur.
== END 2021-07-06 09:36 | disposition home or self-care (01) ==
LOC: PC 09:35
PROVIDERS: ATTEND Nurse Practitioner Family
DX: Z51.5 Encounter for palliative care (principal); G89.3 Neoplasm related pain (acute) (chronic); C50.912 Malignant neoplasm of unspecified site of left female breast; C79.51 Secondary malignant neoplasm of bone; R63.0 Anorexia; R63.4 Abnormal weight loss; K59.00 Constipation, unspecified
CPT/HCPCS: 99349

== ENCOUNTER 2021-07-13 16:00 | Outpatient (CLI) | payer MEDICARE ==
--- NOTE | 2021-07-13 17:46 | CONSULTATION NOTE ---
Palliative Care Follow Up - Referral Referring Provider: Dr. Tab Valle Time of Visit: [id number] Referral setting: Home Referral Reason: Pain of neoplasm/Constipation/Pathological fracture - Information Sources Records reviewed: Previous records reviewed History/Review of Systems obtained from: Patient, Family (spouse/DPOA Bill) Exam limitations: Clinical condition (mild STM impairment due to opioid use) - History of Present Illness Update Brief HPI Update: This is a joe 75-year-old female who was seen and evaluated today at home due to metastatic malignancy, pain of neoplastic origin, constipation and pathologic fracture of proximal right lip with spouse/DPOA Bill present. Provider wore N95 mask. The patient has a history of left breast cancer stage II with lumpectomy in 2002 and she completed her treatment. Unfortunately, when 05/12/2021 she was assisting someone at the grocery store when she sustained a fall that resulted in upper back pain and she presented to the emergency department and had CT thoracic spine showing "widespread metastatic disease. Pathologic fractures at T4 and T5. Additional mild T1 fracture. At T4, 4 mm posterior displacement of fracture fragments with soft tissue mass at the site with associated clinical central canal narrowing and deviation of the spinal cord of the right. M She was transferred to [facility] where she had a T3-T4 laminectomy and tumor resection as well as a T2-T6 fusion by Dr. Nathan Wray. She was discharged with a muscle relaxant as well as oxycodone 5 mg tablets. The patient had been having escalating pain specifically to her right scapula. Neurosurgeon, Dr. Wray ordered a thoracic CT on 06/29 that demonstrated a new pa thologic fracture of the proximal right rib. Given the patient's escalating pain she was initiated on MS Contin 15 mg and titrated to twice daily dosing. She initiated to twice daily dosing on 07/10. Both the patient and her spouse have noted that the patient has had improvement of her overall comfort level. However, if she has escalating pain she is using a whole oxycodone and during the day this results in significant fatigue and then she will be sleeping throughout the day. Upon review of her administration record of oxycodone 5 mg tablets she has been taking anywhere from 1-3. Since her surgery in April 2021 she reports significant weakness and would benefit from outpatient physical therapy for strengthening and balance. She does not need to utilize any assistive devices when she is ambulating in the home or outside of the home. For her metastatic breast cancer she is presently on Ibrance and letrozole and tolerating this well. She is to begin Zometa in July. The patient has tapered off the dexamethasone that was initiated for bony met pain as well as appetite and energy. Her last dose of 2 mg dexamethasone was today. She has noticed an overall improvement in her appetite. Reinforced today that anything that the patient finds desirable encouraged to take. Past Medical History: Patient has a history of hyperlipidemia, left breast cancer in 2002, left breast lumpectomy a lymph with lymph node dissection in 2002, impaired glucose previously on Metformin and has not been on for many years; T3-T4 laminectomy with tumor resection as well as T2-T6 fusion 04/2021, history of iron deficiency anemia. Social History - Living Situation Living arrangement: At home Living Situation: With spouse/s.o. Support System: Patient grew up on [facility]. She has a brother whom she has been estranged from for a number of years. The patient and her spouse, Ibrahima have been for approximately 52 years. They have 1 son, Riki who resides in [place] as well as her granddaughter. Medications/Allergies - Medications Home Medications: Ambulatory Orders Medication Instructions Recorded Confirmed oxyCODONE [Roxicodone] 2.5 - 5 mg PO Q4H PRN 06/12/21 07/06/21 tiZANidine [Zanaflex] 4 mg PO PRN PRN 06/12/21 07/06/21 Letrozole 2.5 mg PO DAILY 06/13/21 07/06/21 polyethylene glycoL 3350 [Miralax] 17 gm PO DAILY 06/28/21 07/06/21 Palbociclib [Ibrance] 75 mg PO DAILY 07/03/21 07/06/21 Calcium Carbonate/Vitamin D3 1 tab PO DAILY 07/06/21 07/06/21 [Calcium 500 mg-Vit D3 600 Unit] Magnesium Oxide [Magnesium] 1 cap PO DAILY 07/06/21 07/06/21 Morphine Sulfate [Ms Contin] 15 mg PO BID 07/06/21 07/10/21 Naloxone HCl [Narcan] PRN MDD as directed 07/06/21 Sennosides/Docusate Sodium [Senna 1 tab PO QPM 07/06/21 07/06/21 Plus 8.6-50 mg Tablet] Vitamin D 3 2,000 unit PO DAILY 07/06/21 flaxseed oiL [Flaxseed Oil] 1,400 mg PO DAILY 07/06/21 07/06/21 - Allergies Allergies/Adverse Reactions: Allergies Allergy/AdvReac Type Severity Reaction Status Date / Time No Known Drug Allergies Allergy Verified 06/28/21 18:57 Review of Systems - Constitutional Constitutional: reports: Fatigue (see HPI), Weight loss (history of weight loss). denies: Fever - Eyes Eyes: denies: Irritation - Ears, Nose & Throat Ears, Nose & Throat: denies: Hearing loss - Cardiovascular Cardiovascular: denies: Edema - Respiratory Respiratory: denies: Wheezing - Gastrointestinal Gastrointestinal: reports: Constipation (bowel movement every 2-3 days is baseline, last bowel movement 07/09), Early satiety, Other (Appetite improved; +flatus). denies: Abdominal pain, Abdominal distention, Diarrhea, Nausea, Vomiting - Genitourinary Genitourinary: denies: Dysuria - Musculoskeletal Musculoskeletal: reports: Stiffness, Other (right scapula pain without numbness or tingling to RUE--improved). denies: Assistive devices, Transfer issues - Neurological Neurological: reports: General weakness, Memory problems ("oxy brain"), Other (Took a walk today outside with spouse). denies: Numbness - Endocrine Endocrine: reports: Other (impaired fasting glucose previously on metformin "years ago"; hypercalcemia due to metastasis) - All Other Systems All Other Systems: reports: Reviewed and negative Physical Exam - Vital Signs Temperature: 36.9 C Pulse Rate: 88 O2 Saturation: 95 Blood Pressure: 108/68 (left wrist) - Physical Exam General Appearance: positive: No acute distress, Alert, Cachetic Eyes Bilateral: positive: Normal inspection ENT: positive: No signs of dehydration Neck: positive: No JVD, Trachea midline Cardiovascular: positive: Regular rate & rhythm Respiratory: positive: No respiratory distress, Breath sounds nml Abdomen: positive: Non-tender, Soft, Nml bowel sounds. negative: Guarding, Distended Skin: positive: No symptoms Extremities: positive: No pedal edema Neurologic/Psychiatric: positive: Oriented x3, Mood/affect nml, Weakness Palliative Care - POLST Patient has POLST: No Pain: Pain improved (right scapula pain and left side pain improved with MS COntin 15mg BID. Continues to use oxycodone 5mg 1-3x per day.) Drowsiness/Sedation: Moderate (4-6) (especially increased after taking 5mg oxycodone that then requires a nap) Nausea: None Anorexia: Weight loss Constipation: Yes, Opoid induced, Intermittent constipation - Palliative Care Discussion: Since introduction of MS Contin 50 mg twice daily the patient has had significant improvements with her pain most notably to her right scapula. She has had a very administration use with her breakthrough pain medication oxycodone 5 mg utilizing every 4 hours as needed for pain. Given she has sedation effects after taking her 5 mg oxycodone made suggestion that she trial half a tablet during the day and if not fully effective may take the additional half an hour if continued pain and open to this suggestion. Patient would benefit from outpatient physical therapy for strengthening and balance as well as energy conservation. Given palliative care as a consulting service will reach out to patient's oncologist for referral and if that is not feasible than the patient's PCP. The patient is presently experiencing some increased constipation however, she remains not distended and there is no nausea and positive flatus. Discussed bowel titration of medications today and therefore a plan in place to ensure defecation. Impression and Recommendations - Palliative Care Impression: This is a joe 75-year-old female with metastatic breast cancer to the spine with history of T4 spinal cord compression in the setting of bony mets, pain of neoplastic origin, anorexia, debility, new pathologic fracture to proximal right rib. She has had improvement of her pain and anorexia. We will continue on MS Contin 15 mg twice daily. She is no longer on dexamethasone 2 mg daily as this has been tapered off as there is not no noted benefit. We will continue bowel titration to ensure a soft bowel movement at least every other day. Palliative care to continue to build rapport, explore goals of care, provide care coordination, pain and symptom management and anticipatory guidance. Recommendations/Counseling Done: 1. Constipation. Sedentary lifestyle and opioid therapy contributing. At baseline, the patient typically has a bowel movement every 2 to 3 days. Encouraged this evening to take to senna 8.6/Dukas 850 mg tablets tonight and then if no bowel movement in the morning to take an additional senna 8.6/Dukas 850 mg tablet. Reviewed dose titration of senna Dukas 8 and to continue taking 1 tablet every evening and may titrate up to 3 times daily 1 tablet to ensure defecation. Moving forward encouraged utilization of MiraLAX 1 cap daily and may titrate up to twice daily as needed. Goal is to have a soft bowel movement daily if not every other day. Continue to encourage oral hydration. 2. Anorexia with weight loss. Small frequent meals throughout the day. Improvement of overall appetite after dexamethasone initiation now discontinued. Encourage foods that she finds pleasurable to consume. Continue to monitor. 3. Pain of neoplastic origin. Improved. Continue MS Contin 15 mg twice daily. Given she has increased sedation with utilization of 5 mg oxycodone discussed trialing 2.5 mg of oxycodone during the day to decrease sedation and if not effective in pain relief then to administer additional half a tablet in 1 hour for full 5 mg tablet. May utilize oxycodone 2.5 to 5 mg every 4 hours as needed for pain and continue to record to determine dose titration of MS Contin. Has Narcan in the home. Continue to monitor to optimize comfort and function. 4. Generalized weakness and debility. This is more pronounced after the patient had surgery in April 2021. To benefit from outpatient physical therapy for strengthening and balance. Given palliative care is a consulting per [employer] under [employer] will reach out to patient's oncologist to make referral and if this is not feasible then will reach out to PCP to make referral to her [facility] in [place] per the patient's request that she has been there previously. Discussed energy conservation and movement. 5. 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 Status post T4 decompression and radiation therapy 04/2021. Presently on letrozole and Ibrance. Has a history of left breast cancer originally diagnosed in 2002. Continue to be followed by oncology. Total time spent 40 minutes with greater than 50% of the spent in counseling and coordination of care with the patient and spouse/DPOA; bowel medication titration; pain medication review; pain and symptom management; and anticipatory guidance. Disclaimer: The chart note was formulated using voice recognition technology and unfortunately sound alike errors may occur.
== END 2021-07-13 16:01 | disposition home or self-care (01) ==
LOC: PC 16:00
PROVIDERS: ATTEND Nurse Practitioner Family
DX: Z51.5 Encounter for palliative care (principal); K59.03 Drug induced constipation; T40.2X5A Adverse effect of other opioids, initial encounter; R63.0 Anorexia; R63.4 Abnormal weight loss; G89.3 Neoplasm related pain (acute) (chronic); C50.919 Malignant neoplasm of unspecified site of unspecified female breast; C79.51 Secondary malignant neoplasm of bone; R53.1 Weakness; R53.81 Other malaise
CPT/HCPCS: 99349

== ENCOUNTER 2021-07-17 13:08 | Outpatient (CLI) | payer MEDICARE ==
--- NOTE | 2021-07-17 14:12 | XRAY Report ---
PROCEDURE: Femur 2V RT INDICATIONS: RIGHT LEG PAIN, R/O PATH FX TECHNIQUE: 4 views of the femur were acquired. COMPARISON: Nuclear medicine bone scan 07/05/2021. FINDINGS: Bones: No fractures or dislocations. Multiple small lytic lesions seen in the right femur and pelvis . Some of the lesions are intramedullary well others are cortical. Bones appear heterogeneous. No per iosteal reaction. No pathologic fracture seen. Soft tissues: No suspicious soft tissue calcifications or masses. IMPRESSION: Multiple small lytic lesions in the right femur and pelvis. Reviewed by: Jeovanny Perea MD on 07/17/2021 2:11 PM PST Approved by: Jeovanny Perea MD on 07/17/2021 2:11 PM PST Station ID: [id number]
== END 2021-07-17 13:09 | disposition home or self-care (01) ==
LOC: DI 13:08
PROVIDERS: ATTEND Physician Assistant
DX: M89.9 Disorder of bone, unspecified (principal)

== ENCOUNTER 2021-07-31 15:10 | Outpatient (CLI) | payer MEDICARE ==
--- NOTE | 2021-07-31 18:19 | CONSULTATION NOTE ---
Palliative Care Follow Up - Referral Referring Provider: Dr. Noam Espinal Time of Visit: [phone] Referral setting: [facility] [place] Referral Reason: Pain of neoplasm/Fatigue - Information Sources Records reviewed: Previous records reviewed History/Review of Systems obtained from: Patient, Family (spouse, Bill) Exam limitations: No limitations - History of Present Illness Update Brief HPI Update: This is a joe 75-year-old female who was seen and evaluated a due to metastatic malignancy, pain of neoplastic origin and fatigue with her spouse/DPOA Bill present in the [facility] [place]. Provider wore N95 mask. 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 The patient was having increased fatigue and therefore her Ibrance was held. She had her dexamethasone resumed and increased for pain as well as anorexia and fatigue. And her MS Contin dosage was decreased from 15 mg twice daily to 15 mg nightly. Over the last week and a half the patient has had improvement in her overall fatigue. She is ambulatory again without using a wheelchair. She does have a referral for Outpatient physical therapy however, due to her white blood cell count will hold at the present time and encouraged activity within the home environment. The patient's dexamethasone was increased from 4 mg daily to 6 mg daily on 06/25. The patient has been tolerating this well. She has had reduction in her pain to her right femur. She had an x-ray performed on 07/17 which was negative for pathologic fracture. She did have some report of discomfort in her mouth and was started on nystatin swish and swallow and has had resolution of the symptoms. Her appetite is also better and she is maintaining her weight however, she is not increasing. She continues to supplement with yogurt, ice cream, and smoo pamela. Given her cognition is improved oncology has canceled her brain MRI. The patient reports overall all her pain is relatively well controlled except with movements. This is specific with transition from lying to sitting or sitting to standing. Once the patient is, durable she no longer has any pain. The pain is most specific to her right scapula. Upon review of oxycodone administration she is typically taking oxycodone at 1 AM in the morning when she is rising to use the restroom due to nocturia. Would benefit from scheduled dose of oxycodone at that time to improve sleep routers pain causing awakening later in the morning which can be at approximately 3AM upon review of medication record. Patient is seen in infusion chair well groomed, bright and alert with no evidence of acute distress. Past Medical History: Patient has a history of hyperlipidemia, left breast cancer in 2002, left breast lumpectomy a lymph with lymph node dissection in 2002, impaired glucose previously on Metformin and has not been on for many years; T3-T4 laminectomy with tumor resection as well as T2-T6 fusion 04/2021, history of iron deficiency anemia. Social History - Living Situation Living arrangement: At home Living Situation: With spouse/s.o. Support System: Patient grew [place] on [facility]. She has a brother whom she has been estranged from for a number of years. The patient and her spouse, Ibarhima have been for approximately 52 years. They have 1 son, Riki who resides in [place] as well as her granddaughter. When the weather is nice the patient enjoys walking frequently outside. Medications/Allergies - Medications Home Medications: Ambulatory Orders Medication Instructions Recorded Confirmed oxyCODONE [Roxicodone] 2.5 - 5 mg PO Q4H PRN 06/12/21 07/06/21 tiZANidine [Zanaflex] 4 mg PO PRN PRN 06/12/21 07/06/21 Letrozole 2.5 mg PO DAILY 06/13/21 07/06/21 polyethylene glycoL 3350 [Miralax] 17 gm PO DAILY 06/28/21 07/06/21 Palbociclib [Ibrance] 75 mg PO DAILY 07/03/21 07/06/21 Calcium Carbonate/Vitamin D3 1 tab PO DAILY 07/06/21 07/06/21 [Calcium 500 mg-Vit D3 600 Unit] Magnesium Oxide [Magnesium] 1 cap PO DAILY 07/06/21 07/06/21 Morphine Sulfate [Ms Contin] 15 mg PO QPM 07/06/21 07/10/21 Naloxone HCl Nasal [Narcan] PRN MDD as directed 07/06/21 Sennosides/Docusate Sodium [Senna 2 tab PO QPM 07/06/21 07/06/21 Plus 8.6-50 mg Tablet] Vitamin D 3 2,000 unit PO DAILY 07/06/21 flaxseed oiL [Flaxseed Oil] 1,400 mg PO DAILY 07/06/21 07/06/21 dexAMETHasone [Decadron] PO .4MG IN AM AND 2MGPM MDD with 07/18/21 07/18/21 food oxyCODONE [Roxicodone] 5 mg PO .AT 1AM FOR PAIN 07/31/21 07/31/21 - Allergies Allergies/Adverse Reactions: Allergies Allergy/AdvReac Type Severity Reaction Status Date / Time No Known Drug Allergies Allergy Verified 06/28/21 18:57 Review of Systems - Constitutional Constitutional: reports: Fatigue (see HPI, improved), Poor appetite, Weight loss (history of weight loss that has stablized). denies: Fever - Eyes Eyes: denies: Blurred vision, Dipolpia - Ears, Nose & Throat Ears, Nose & Throat: denies: Sore throat - Cardiovascular Cardiovascular: denies: Edema - Respiratory Respiratory: denies: Cough - Gastrointestinal Gastrointestinal: reports: Early satiety, Other (Appetite improved). denies: Abdominal pain, Constipation (controlled with bowel movement every 3 days without straining), Nausea, Vomiting - Genitourinary Genitourinary: reports: Nocturia. denies: Dysuria, Incontinence - Musculoskeletal Musculoskeletal: reports: Stiffness, Other (right scapula pain without numbness or tingling to RUE, see HPI). denies: Assistive devices, Transfer issues - Neurological Neurological: reports: General weakness, Memory problems ("oxy brain"). denies: Numbness (to BLE) - Endocrine Endocrine: reports: Other (impaired fasting glucose previously on metformin "years ago"; hypercalcemia due to metastasis) - All Other Systems All Other Systems: reports: Reviewed and negative (spouse supplemented) Physical Exam - Physical Exam General Appearance: positive: No acute distress, Alert, Cachetic Eyes Bilateral: positive: Normal inspection Neck: positive: Trachea midline Cardiovascular: positive: Regular rate & rhythm Respiratory: positive: No respiratory distress, Breath sounds nml Abdomen: positive: Non-tender, Soft, Nml bowel sounds. negative: Distended Skin: positive: No symptoms Extremities: positive: No pedal edema Neurologic/Psychiatric: positive: Oriented x3, Mood/affect nml, Weakness (muscular atrophy) Palliative Care - POLST Patient has POLST: No Pain: Pain improved (right scapula pain with use of oxycodone appx 3 times per day in addition to MS Contin 15mg qPM) Tiredness/Fatigue: Comment (Improved with reduction of MS Contin and increase of dexamethasone) Nausea: None Anorexia: Moderate (4-6) Feelings of wellbeing/Perceived Quality of Life: Good Constipation: Yes, Opoid induced, Managed Performance Status: Patient was returned to her ability to ambulate without an assistive device. Continent of bowel and bladder. No falls reported. - Palliative Care Discussion: Fatigue has significantly improved with reintroduction of dexamethasone as well as appetite and pain to right scapula. She is also had a reduction in her drowsiness with reduction of MS Contin to 15 mg nightly. Overall, her pain is improved. Discussed given she has had not quite 1 week of dose increase of dexamethasone from 4 mg to 6 mg will continue for another week and reassess regarding dose reduction. Given the last time the patient was discontinued with a taper off of dexamethasone she had increased fatigue, anorexia, and right femur pain wished to reduce at a slower pace to reduce risk of exacerbation of above-stated symptoms and both patient and spouse are in agreement. The patient would benefit from strengthening and balance for energy conservation given she has had significant muscle atrophy. Discussed utilization of an exercise peddler bike to utilize while sitting given her neutropenic state wish to avoid leaving her home environment to attend physical therapy at the present time. Both patient and spouse were open to this suggestion. Results - Lab Results Lab results reviewed: Yes Lab and Imaging Results: Labs from 07/17/21 Impression and Recommendations - Palliative Care Impression: This is a joe 75-year-old female with metastatic breast cancer to the spine with history of T4 spinal cord compression in the setting of bony mets, pain of neoplastic origin, anorexia and fatigue. She has had improvement of her pain and anorexia with present regimen and her constipation is presently well managed. Palliative care to continue to build rapport, explore goals of care, provide care coordination, pain and symptom management and anticipatory guidance. Recommendations/Counseling Done: 1. Pain of neoplastic origin. Stable. Continue MS Contin 15 mg nightly. Given the patient continues to wake up at approximately 1 AM with pain after using the restroom advised to utilize 5 mg of oxycodone at 1 AM. Discussed utilization of oxycodone 2.5 mg every 4 hours as needed for pain and if not e ffective in 1 hour may repeat an additional 2.5 mg of oxycodone for a total dose of 5 mg. Continue to record utilization of oxycodone to determine if any just adjustments are required. Reviewed today with the patient and spouse do not abruptly stop MS Contin and will need to be tapered with understanding verbalized. Has Narcan in the home. Continue dexamethasone 4 mg in the morning and 2 mg in the afternoon before 2 PM with food. Patient has had improvement of right scapula pain. We will continue at the present dose for another week and then reassess and gradually taper given when the patient was stopped off dexamethasone previously she had return of her symptoms and therefore, wish to gradually discontinue and monitor her response. Given the patient is having discomfort when rising from bed discussed obtainment of a bed assist rail for the bed for the patient to utilize versus a walker that is not stable and could increase the risk of fall and fracture. Continue to monitor and optimize comfort and function. 2.Anorexia with history of weight loss. Small frequent meals throughout the day. Improvement of overall appetite stimulant elation with dexamethasone sown. Encourage foods that she finds pleasurable. Continue supplementations with ice cream and smoothies. Presently maintaining her weight. Continue to monitor. 3.Fatigue. Multifactorial with likely opioid therapy contributing. Has had improvement after being off of Ibrance and reduction of MS Contin from twice daily to once daily dosing. Discussed energy conservation. Continue to monitor. 4.Neutropenia. Patient was advised on precautions regarding her low white blood cells. Avoiding crowds, frequent handwashing, and watching for signs or symptoms of infection. 5. Generalized weakness and debility. This is more pronounced after the patient had surgery in April 2021. Though she would benefit from outpatient physical therapy for strengthening and balance, given her neutropenia wish to avoid crowds at the present time. She does have a referral that had been placed to her [facility]. Recommend patient obtain an exercise peddler bike to utilize within the home and gradually increase her endurance slowly. Goal is to maintain her present strength and balance with fall precautions. Total time spent 40 minutes with greater than 50% of the spent in counseling and coordination of care with the patient and spouse/DPOA; review of pain medications titration and management; pain and symptom management; and anticipatory guidance. Disclaimer: The chart note was formulated using voice recognition technology and unfortunately sound alike errors may occur.
== END 2021-07-31 15:11 | disposition home or self-care (01) ==
LOC: PC 15:10
PROVIDERS: ATTEND Nurse Practitioner Family
DX: Z51.5 Encounter for palliative care (principal); G89.3 Neoplasm related pain (acute) (chronic); C79.51 Secondary malignant neoplasm of bone; Z85.3 Personal history of malignant neoplasm of breast; R53.83 Other fatigue; R53.1 Weakness; R63.0 Anorexia; R68.81 Early satiety; M62.50 Muscle wasting and atrophy, not elsewhere classified, unspecified site; K59.03 Drug induced constipation; T40.2X5A Adverse effect of other opioids, initial encounter; D70.9 Neutropenia, unspecified; Z79.891 Long term (current) use of opiate analgesic; Z79.899 Other long term (current) drug therapy; Z79.52 Long term (current) use of systemic steroids
CPT/HCPCS: 99215

== ENCOUNTER 2021-08-22 13:25 | Outpatient (CLI) | payer MEDICARE ==
[2021-08-22 14:01] LABS: ALBUMIN 3.1 g/dL (3.2-5.5); ALBUMIN/GLOBULIN RATIO 0.9 (1.0-2.2); BILIRUBIN,TOTAL 0.3 mg/dL (0.2-1.0); CREATININE 1.8 mg/dL (0.4-1.0); POTASSIUM 4.6 mmol/L (3.5-5.0); TOTAL PROTEIN 6.5 g/dL (6.7-8.2)
== END 2021-08-22 13:26 | disposition home or self-care (01) ==
LOC: LAB 13:25
PROVIDERS: ATTEND Internal Medicine Hematology & Oncology
DX: C50.912 Malignant neoplasm of unspecified site of left female breast (principal); C79.51 Secondary malignant neoplasm of bone
CPT/HCPCS: 36415; 80053

== ENCOUNTER 2021-08-28 15:15 | Outpatient (CLI) | payer MEDICARE ==
--- NOTE | 2021-08-28 16:27 | CONSULTATION NOTE ---
Palliative Care Follow Up - Referral Referring Provider: Dr. Noam Espinal Time of Visit: 4954-0098 [place] [facility] [place] Reason: Anorexia/Pain of neoplasm - Information Sources Records reviewed: Previous records reviewed History/Review of Systems obtained from: Patient, Family (spouse, Bill) Exam limitations: Clinical condition (+mild STM impairment) - History of Present Illness Update Brief HPI Update: This is a joe 75-year-old female who was seen in follow-up today due to metastatic malignancy, pain of neoplastic origin and anorexia in [place] [facility] [place] with her spouse/DPOA Bill present. Provider wore N95 mask. 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 She recently a had thoracic 9 x-ray obtained at [facility] 08/22/2021 that demonstrated "new T4 pathologic compression fracture with 30% height loss." They have a follow-up with neurosurgeon on 09/04. The patient denies any midthoracic back pain. Also of note, the patient has had a reduction in her right scapula discomfort that has been persisting since approximately April 2021. The patient over the last 3 days has not required daily breakthrough oxycodone and her pain has been controlled with MS Contin 15 mg in the evening. She did take her 1 AM dose of oxycodone 5 mg that typically has been scheduled but the prior to morning she had not taken. The patient did have an episode of constipation that resolved with utilization of milk of magnesia. Denies nausea or vomiting. Has had a slight increase in her overall weight and continues with generalized fatigue and no success with taking naps. The patient and his spouse report a scab to the distal aspect of her right great toe. This occurred after she was at [facility]. She has not been able to wear closed toed shoes. She was soaking her feet previously but this caused more irritation and thus she stopped. There is no redness or discharge. There has been a reduction in the size of the scab. Patient spouse notes increased forgetfulness such as cueing with reminders regarding appointments. Spouse also notes that the patient will repeat of a question that he had answered previously. Also noting some increased irritability at times. The patient herself does appreciate some mental fog however, she does not perceive it worsening from prior evaluations. She denies blurred vision, double vision or loss of balance. The last 1 to 2 days reports she has had a headache that has responded to Excedrin. Patient developed some oral thrush earlier this month and was prescribed nystatin liquid formulation and denies any difficulty with chewing, swallowing or generalized discomfort. The last several days she has not been utilizing. Patient is seen in infusion chair well groomed, bright and alert with no evidence of acute distress. Past Medical History: Patient has a history of hyperlipidemia, left breast cancer in 2002, left breast lumpectomy a lymph with lymph node dissection in 2002, impaired glucose previously on Metformin and has not been on for many years; T3-T4 laminectomy with tumor resection as well as T2-T6 fusion 04/2021, history of iron deficiency anemia. Social History - Living Situation Living arrangement: At home Living Situation: With spouse/s.o. Support System: Patient [place] up [place] [facility]. She has a brother whom she has been estranged from for a number of years. The patient and her spouse, Ibrahima have been for approximately 52 years. They have 1 son, Riki who resides in [place] as well as her granddaughter. When the weather is nice the patient enjoys walking frequently outside. Patient and spouse are looking into getting a puppy later this Spring. The patient loves animals. Medications/Allergies - Medications Home Medications: Ambulatory Orders Medication Instructions Recorded Confirmed oxyCODONE [Roxicodone] 2.5 - 5 mg PO Q4H PRN 06/12/21 08/28/21 Letrozole 2.5 mg PO DAILY 06/13/21 08/28/21 polyethylene glycoL 3350 [Miralax] 17 gm PO DAILY 06/28/21 08/28/21 Palbociclib [Ibrance] 75 mg PO DAILY 07/03/21 08/28/21 Calcium Carbonate/Vitamin D3 1 tab PO DAILY 07/06/21 08/28/21 [Calcium 500 mg-Vit D3 600 Unit] Magnesium Oxide [Magnesium] 1 cap PO DAILY 07/06/21 08/28/21 Morphine Sulfate [Ms Contin] 15 mg PO QPM 07/06/21 08/28/21 Naloxone HCl Nasal [Narcan] 4 mg INH PRN PRN MDD as directed 07/06/21 08/28/21 Sennosides/Docusate Sodium [Senna 2 tab PO QPM 07/06/21 08/28/21 Plus 8.6-50 mg Tablet] Vitamin D 3 2,000 unit PO DAILY 07/06/21 08/28/21 flaxseed oiL [Flaxseed Oil] 1,400 mg PO DAILY 07/06/21 08/28/21 dexAMETHasone [Decadron] 1 mg PO .2MG IN AM AND 1MGPM MDD 07/18/21 08/28/21 with food oxyCODONE [Roxicodone] 5 mg PO .AT 1AM FOR PAIN 07/31/21 08/28/21 Nystatin [Mycostatin] 5 ml PO QID MDD swish and swallow 08/28/21 08/28/21 - Allergies Allergies/Adverse Reactions: Allergies Allergy/AdvReac Type Severity Reaction Status Date / Time No Known Drug Allergies Allergy Verified 08/28/21 14:43 Review of Systems - Constitutional Constitutional: reports: Fatigue, Weight gain (weight 50.4kg today). denies: Fever - Eyes Eyes: denies: Blurred vision, Vision loss, Dipolpia - Ears, Nose & Throat Ears, Nose & Throat: reports: Nosebleeds (trace amount when blowing nose, intermittent). denies: Nasal pain, Sore throat, Dry mouth - Cardiovascular Cardiovascular: denies: Chest pain, Edema - Respiratory Respiratory: denies: Cough - Gastrointestinal Gastrointestinal: reports: Constipation (see HPI), Early satiety. denies: Abdominal pain, Nausea, Vomiting - Genitourinary Genitourinary: denies: Dysuria - Musculoskeletal Musculoskeletal: reports: Stiffness. denies: Assistive devices, Transfer issues, Other (right scapula without pain) - Integumentary Integumentary: reports: Pigment changes (chest wall), Other (right toe scab;) - Neurological Neurological: reports: General weakness, Memory problems - Psychiatric Psychiatric: reports: Other (Repeated dreams at night about purchasing a new puppy) - Endocrine Endocrine: reports: Other (impaired fasting glucose previously on metformin "years ago"; hypercalcemia due to metastasis) - Hematologic/Lymphatic Hematologic/Lymph: reports: Bruising - All Other Systems All Other Systems: reports: Reviewed and negative (spouse supplemented) Physical Exam - Vital Signs Temperature: 36.2 C Pulse Rate: 100 O2 Saturation: 93 Blood Pressure: 128/78 - Physical Exam General Appearance: positive: No acute distress, Alert, Cachetic Eyes Bilateral: positive: Normal inspection ENT: positive: No signs of dehydration, Other (white patches to hard palate c/w oral candidiasis--scattered) Neck: positive: Trachea midline Cardiovascular: positive: Regular rate & rhythm, No murmur Respiratory: positive: No respiratory distress, Breath sounds nml Abdomen: positive: Non-tender, Soft, Nml bowel sounds. negative: Distended Skin: positive: Bruising (Trace hematoma to right chest wall consistent with capillary break due to fragile skin and dexamethasone), Pressure wound (Right great toe scab formation without erythema, discharge or warmth) Extremities: positive: Full ROM, No pedal edema Neurologic/Psychiatric: positive: Oriented x3 (+STM impairment, mild), Mood/affect nml, Weakness (muscular atrophy) Palliative Care - POLST Patient has POLST: No Pain: Pain improved (Right scapula with reduction of PRN oxycodone and continues on MS COntin 15mg qpm) Tiredness/Fatigue: Moderate (4-6) Drowsiness/Sedation: Mild (1-3) Nausea: None Anorexia: Moderate (4-6) Feelings of wellbeing/Perceived Quality of Life: Good Sleep: Sleeps well Constipation: Yes, Opoid induced, Managed - Palliative Care Discussion: Pain has significantly improved to her right scapula as well as reported weight gain. Her utilization of breakthrough oxycodone has significantly reduced over the last 2 to 3 days. Therefore, given the above and some reported irritability from the patient's spouse will begin taper of dexamethasone from 2 mg twice daily to 2 mg in the morning and 1 mg in the afternoon with a goal to taper by 1 mg weekly based on the patient's response and aim for discontinuation. Normalized the patient's fears regarding addiction related to opioid therapy. Lengthy discussion was had with the patient and spouse regarding physical dependence versus addiction. Reframe for the patient that her pain is presently well controlled and managed on low-dose MS Contin 15 mg in the evening. Discussed in the future dose titration to taper off and not to discontinue abruptly. But given the patient's extensive metastatic disease to her bones would likely expect her continued need of opioid therapy for function and comfort in the future. Patient did share that a family member has an addiction problem bringing some of her concerns to the service. Results - Lab Results Lab results reviewed: Yes Lab and Imaging Results: 08/28/2021 Sodium 134, potassium 4.8, BUN 38, creatinine 1.4, glucose 117, calcium 11.1, AST 37, ALT 36, alk phos 103, albumin 3.2, CA 15-3 antigen 625.5 WBC 1.8, hemoglobin 12.3, hematocrit 37.6%, platelet 136, neutrophil 1.6 07/17/2021 CA 15-3 antigen 439.9 06/26/2021 CA 15-3 Antigen 332.0 Impression and Recommendations - Palliative Care Impression: This is a joe 75-year-old female with metastatic breast cancer to the spine with history of T4 spinal compression in the setting of bony mets, pain of neoplastic origin, anorexia, and pressure ulcer to right great toe. She has had significant improvement of her pain and is no longer requiring breakthrough oxycodone during the day. Would benefit from dose reduction of dexamethasone with the goal to taper off. Palliative care to continue to build rapport, explore goals of care, provide care coordination, pain and symptom management as well as anticipatory guidance. Recommendations/Counseling Done: 1.Pain of neoplastic origin. Improved. Continue MS Contin 15 mg nightly. Patient prefers to utilize oxycodone 2.5 mg to 5 mg every 4 hours as needed for pain. Reviewed today the difference between physical dependence versus addiction at length with the patient and spouse with questions answered and addressed and normalized fears. Again reviewed today to not abruptly stop MS Contin and will need to taper if appropriate in the future with understanding verbalized. Has Narcan in the home. Given improvement of pain and reports of some irritability will reduce dexamethasone to 2 mg in the morning and 1 mg in the afternoon with food. We will gradually discontinue dexamethasone tapering by 1 mg/week based on the patient's response and symptoms. Continue to monitor and optimize comfort and function. 2. Anorexia with history of weight loss. Improved. Continue small frequent meals throughout the day. Has had some noted weight gain reported. Encourage foods that she finds pleasurable. Continue supplementation with ice cream and smoothies. Recorded weight today 50.4 kg. See diagnosis pain of neoplastic origin for further details regarding dexamethasone. 3. Pressure ulcer to right great toe, resolving. Scab formation present without signs or symptoms of infection. Discussed application of lubricant such as Neosporin or Aquaphyllin to be applied once daily until healed. Discussed utilization of elevated corn pad to provide protection and reduction of friction to the site. Continue to monitor for signs and symptoms of infection and reviewed at length with patient and spouse and to contact palliative care if concerns. We will need to continue to monitor and if continues to have difficulty with resolution may consider vasculature is contributing factor for resolution. This was reviewed with patient and spouse today. 4. Hypercalcemia in the setting of malignancy. Rising calcium level with IV hydration today and later this week. Followed by oncology. 5. Oral candidiasisIn the setting of dexamethasone use and neutropenia. Continue utilization of nystatin oral suspension 5 mL by mouth 4 times a day swish and swallow. Improved. Would expect this to continue to resolve with d ose reduction of dexamethasone. 6.Metastatic breast cancer to the spine with T4 spinal cord compression. Status post T4 decompression and radiation therapy 04/2021. Recent x-ray demonstrates T7 pathologic compression fracture and patient is asymptomatic. Presently on letrozole and Ibrance. Has a history of left breast cancer originally diagnosed in 2002. Continue to be followed by oncology and neurosurgery. Total time spent 45 minutes with greater than 50% spent in counseling coronation of care with the patient and spouse/DPOA; review of labs; coordination with MAC RN; review of pain medication and titration and management; pain and symptom management; and anticipatory guidance. Disclaimer: The chart note was formulated using voice recognition technology and unfortunately sound alike errors may occur.
== END 2021-08-28 15:16 | disposition home or self-care (01) ==
LOC: PC 15:15
PROVIDERS: ATTEND Nurse Practitioner Family
DX: Z51.5 Encounter for palliative care (principal); G89.3 Neoplasm related pain (acute) (chronic); R63.0 Anorexia; R53.83 Other fatigue; L89.899 Pressure ulcer of other site, unspecified stage; E83.52 Hypercalcemia; B37.0 Candidal stomatitis; K59.03 Drug induced constipation; T40.2X5A Adverse effect of other opioids, initial encounter; Z79.891 Long term (current) use of opiate analgesic; M48.54XA Collapsed vertebra, not elsewhere classified, thoracic region, initial encounter for fracture; C79.51 Secondary malignant neoplasm of bone; Z85.3 Personal history of malignant neoplasm of breast; Z79.899 Other long term (current) drug therapy; R41.3 Other amnesia
CPT/HCPCS: 99215

== ENCOUNTER 2021-09-12 15:00 | Outpatient (CLI) | payer MEDICARE ==
--- NOTE | 2021-09-12 16:20 | CONSULTATION NOTE ---
Palliative Care Follow Up - Referral Referring Provider: Dr. Noam Espinal Time of Visit: [id number] Referral setting: Home Referral Reason: Cellulitis right great toe/Oral candidasis/Pain of neoplasm - Information Sources Records reviewed: Previous records reviewed History/Review of Systems obtained from: Patient, Family (spouse/DPOA Bill) Exam limitations: Clinical condition (+STM impairment) - History of Present Illness Update Brief HPI Update: This is a joe 75-year-old female who is seen in follow-up today within her home due to metastatic malignancy, pain of neoplastic origin, cellulitis to right great toe and oral candidiasis with her spouse/DPOA Bill present. Provider wore N95 mask. Patient developed cellulitis to her right great toe and palliative care was notified on 09/04 that there was spreading redness and sensitivity to touch. She was started on cephalexin and just completed that course. She has a scab formation to her right great toe which has been present for some time since she was hospitalized in April 2021. There has been a reduction in the size of the scab. Prior to the onset of the cellulitis the patient was experiencing decrease in the scab formation to her great toe. Now it has a larger scab with some evidence of cracking and no discharge. 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 She recently had new imaging that demonstrated a new compound fracture at T7 per spouse's report. Patient is being followed by neurosurgeon Dr. Wray and is to have repeat imaging of the thoracic spine with CT later this month and follow-up in early September 2019 with neurosurgery. She has been having some increased confusion and repeating her questions. She is also experiencing some increased fatigue that appears to be in direct correlation with her hypercalcemia. She is presently on Zometa infusions as well as IV hydration. Hoarse calcium levels have been improving and continues to be followed by oncology. She is due for next dose of Zometa on 09/25/2021. She has had significant improvement of her overall pain. She continues to be tapering off of her dexamethasone. Presently dexamethasone 1 mg twice a day. There has not been an increase in pain with this reduction and therefore will further reduce her dexamethasone. She has had a reduction in her utilization of oxycodone and has last used breakthrough oxycodone at the end of last week when getting together with friends. She continues on MS Contin 15 mg in the evening. Patient continues to be plagued by Fatigue that appears to have worsened with increasing hypercalcemia. Spouse noted marked improvement after 5 days of IV hydration the last found that the patient had hypercalcemia. She is most alert in the afternoons. She does not feel that she is unable to focus during appointments are going out on car rides. She feels fatigued and will rest but does not feel like she is able to go to sleep during the day when she attempts to nap. Appetite has improved. Patient is seen in the living room, well-groomed bright and alert with no evidence of acute distress. She will often defer to her spouse for thoroughly answering questions. Past Medical History: Patient has a history of hyperlipidemia, left breast cancer in 2002, left breast lumpectomy a lymph with lymph node dissection in 2002, impaired glucose previously on Metformin and has not been on for many years; T3-T4 laminectomy with tumor resection as well as T2-T6 fusion 04/2021, history of iron deficiency anemia. Social History - Living Situation Living arrangement: At home Living Situation: With spouse/s.o. Support System: Patient grew up on [facility]. She has a brother whom she has been estranged from for a number of years. The patient and her spouse, Ibrahima have been for approximately 52 years. They have 1 son, Riki who resides in [place] as well as her granddaughter. With the improving weather the patient is ambulating more outside. They have been looking at organizing the living space in preparation for getting a puppy later this spring. Medications/Allergies - Medications Home Medications: Ambulatory Orders Medication Instructions Recorded Confirmed oxyCODONE [Roxicodone] 2.5 - 5 mg PO Q4H PRN 06/12/21 09/12/21 Letrozole 2.5 mg PO DAILY 06/13/21 09/12/21 polyethylene glycoL 3350 [Miralax] 17 gm PO DAILY 06/28/21 09/12/21 Palbociclib [Ibrance] 75 mg PO DAILY 07/03/21 09/12/21 Calcium Carbonate/Vitamin D3 1 tab PO DAILY 07/06/21 09/12/21 [Calcium 500 mg-Vit D3 600 Unit] Magnesium Oxide [Magnesium] 1 cap PO DAILY 07/06/21 09/12/21 Morphine Sulfate [Ms Contin] 15 mg PO QPM 07/06/21 09/12/21 Naloxone HCl Nasal [Narcan] 4 mg INH PRN PRN MDD as directed 07/06/21 09/12/21 Sennosides/Docusate Sodium [Senna 2 tab PO QPM 07/06/21 09/12/21 Plus 8.6-50 mg Tablet] Vitamin D 3 2,000 unit PO DAILY 07/06/21 09/12/21 flaxseed oiL [Flaxseed Oil] 1,400 mg PO DAILY 07/06/21 09/12/21 dexAMETHasone [Decadron] 1 mg PO DAILY MDD with food 07/18/21 09/12/21 Nystatin [Mycostatin] 5 ml PO QID MDD swish and swallow 08/28/21 09/12/21 - Allergies Allergies/Adverse Reactions: Allergies Allergy/AdvReac Type Severity Reaction Status Date / Time No Known Drug Allergies Allergy Verified 08/28/21 14:43 Review of Systems - Constitutional Constitutional: reports: Fatigue (see HPI), Weight gain (weight 50.4kg 08/28/21). denies: Fever - Ears, Nose & Throat Ears, Nose & Throat: reports: Mouth lesions (significantly improved with nystatin suspension and s/p 1 dose of diflucan). denies: Nasal pain, Sore throat - Cardiovascular Cardiovascular: denies: Chest pain, Edema - Respiratory Respiratory: denies: Cough - Gastrointestinal Gastrointestinal: reports: Constipation (controlled, but will have a bowel movement every 4 days. If bowel movement will hold miralax and senna--advised to continue administration of bowel regimen.), Other (Appetite improved). denies: Abdominal pain, Nausea, Vomiting - Genitourinary Genitourinary: denies: Dysuria - Musculoskeletal Musculoskeletal: reports: Stiffness. denies: Assistive devices, Transfer issues, Other (right scapula no pain present) - Integumentary Integumentary: reports: Other (right toe scab with cracking due to dryness;) - Neurological Neurological: reports: General weakness, Memory problems - Psychiatric Psychiatric: denies: Depression - Endocrine Endocrine: reports: Other (impaired fasting glucose previously on metformin "years ago"; hypercalcemia due to metastasis) - Hematologic/Lymphatic Hematologic/Lymph: reports: Bruising - All Other Systems All Other Systems: reports: Reviewed and negative (spouse supplemented) Physical Exam - Vital Signs Temperature: 36.7 C Pulse Rate: 80 O2 Saturation: 97 (on RA) Blood Pressure: 116/73 - Physical Exam General Appearance: positive: No acute distress, Alert, Cachetic Eyes Bilateral: positive: Normal inspection ENT: positive: No signs of dehydration, Other (trace 2-3 white patches to hard palate c/w oral candidasis---signficantly improved.) Neck: positive: Trachea midline Cardiovascular: positive: Regular rate & rhythm, No murmur Respiratory: positive: No respiratory distress, Breath sounds nml Abdomen: positive: Non-tender, Soft, Nml bowel sounds Skin: positive: Pressure wound (Right great toe scab formation without erythema, discharge or warmth with cracking no evidence of infection appx 1cm in size with resolved cellulitis) Extremities: positive: Full ROM, No pedal edema, Other (spine nontender to palpation) Neurologic/Psychiatric: positive: Oriented x3 (+STM impairment), Mood/affect nml, Weakness (muscular atrophy), Other (Differs to spoouse frequently for assistance with direct medical questions) Palliative Care - POLST Patient has POLST: No Pain: No pain (controlled with MS Contin--asking about coming off the MS Contin in the future) Tiredness/Fatigue: Moderate (4-6) - Palliative Care Discussion: Patient continues to have recurring hypercalcemia as well as rising tumor marker and therefore is going to be having a restaging images obtained and then be Rall evaluated. The patient does not understand in the context what this means and continues to focus on positivity and her makenzie. Her presents perception is that she will take the Ibrance and letrozole for the rest of her life and this will assist with longevity. Her spouse hopes for her spouse hopes for continued improvement related to her cognition secondary to hypercalcemia. Her spouse, Ibrahima recognizes "the elephant in the room" in discussion regarding prognosis however, they are not ready to discuss this or move forward with further advanced care planning outside of what has already taken place. They are looking towards the future and are planning to obtain a puppy later this spring. The patient does not have a living will and durable healthcare power of employment attorney in place. The patient has had significant improvement of her overall pain. Will further reduce her dexamethasone to 1 mg daily with a goal to taper off next visit if pain remains controlled and look at titrating off of MS Contin as well based on her response. Did discuss and introduced the role of Ritalin for fatigue however, the patient does not feel that this is necessary tool at the present time. Results - Lab Results Lab results reviewed: Yes Lab and Imaging Results: 09/12/2021 WBC 3.1, hemoglobin 11.7, hematocrit 35.7, platelet 238, sodium 133, potassium 4.1, BUN 46, creatinine 1.7, calcium 10.4, AST 41, ALT 39, alk phos 103, Impression and Recommendations - Palliative Care Impression: This is a joe 75-year-old female with metastatic breast cancer to the spine with history of T4 spinal compression in the setting of bony mets, pain of neoplastic origin, oral candidiasis resolving, and status post right great toe cellulitis. Patient has had improvement of her pain and is not requiring breakthrough oxycodone during the day. Would benefit from further dose reduction of dexamethasone with goal to taper off. Palliative care to continue to build rapport, explore goals of care, provide care coordination, pain and symptom management as well as anticipatory guidance. Recommendations/Counseling Done: 1. Hypocalcemia in the setting of malignancy. Calcium level remains elevated and being followed by oncology. Is on Zometa infusions with the next scheduled on 09/25 and confirmed for patient and spouse. Continue with IV hydration by oncology. 2. Cellulitis of right great toe in the setting of a pressure ulcer. Resolved cellulitis. Now with scab formation without signs and symptoms of infection. Advised not to soak her foot. Advised to utilize Lyza lubricant such as Aquaphor or Neosporin to be applied once daily until healed. Continue to monitor for signs and symptoms of recurrence of infection. 3. Oral candidiasis. Almost resolved. Status post 1 dose of 150 mg Diflucan. Continue nystatin suspension as ordered for 1 week then discontinue. 4. Pain of neoplastic origin. Improved. Continue MS Contin 15 mg nightly and if pain continues to remain controlled consider titrating off of MS Contin at next visit. She has oxycodone 2.5 mg to utilize every 4 hours as needed for pain. Again reviewed to not abruptly stop MS Contin without taper with understa nding verbalized. Has Narcan in the home. Will further reduce dexamethasone to 1 mg daily with food. Will reevaluate for potential discontinuation of dexamethasone next week at reevaluation. Continue to monitor and optimize comfort and function. 5. 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 Status post T4 compression and radiation therapy 04/2021. Presently on l etrozole and Ibrance. Scheduled for restaging scans. Treatment is palliative and intent. Has a history of left breast cancer originally diagnosed in 2002. Continue to be followed by oncology and neurosurgery. 6. Advanced care planning. Patient does not have a POLST in place but does have a living will and DPOA with her at the designated spokesperson. Patient spouse recognizes in the context of disease progression that the need for restaging scans may warrant a change in intervention. However, both the patient and spouse remain optimistic to obtain quantity of years with interv entions. Patient continues to contribute to her desire whether or not she wishes to continue with oncologic interventions and has a strong reliance on her makenzie. At the present time, we will continue to look towards the future and provide support and as things change allow the patient and spouse to bring up questions regarding advanced care planning. Total time spent 43 minutes with greater than 50% of the spent in counseling and coordination of care with the patient and spouse/DPOA; review of labs; review of oncology notes; review of pain medication and medication for symptom management; pain and symptom management; and anticipatory guidance. Disclaimer: The chart note was formulated using voice recognition technology and unfortunately sound alike errors may occur.
== END 2021-09-12 15:01 | disposition home or self-care (01) ==
LOC: PC 15:00
PROVIDERS: ATTEND Nurse Practitioner Family
DX: Z51.5 Encounter for palliative care (principal); G89.3 Neoplasm related pain (acute) (chronic); C50.919 Malignant neoplasm of unspecified site of unspecified female breast; C79.51 Secondary malignant neoplasm of bone; E83.51 Hypocalcemia; L89.899 Pressure ulcer of other site, unspecified stage; B37.0 Candidal stomatitis
CPT/HCPCS: 99349

== ENCOUNTER 2021-09-14 11:56 | Outpatient (CLI) | payer MEDICARE ==
[2021-09-14] MEDS ORDERED: IOPAMIDOL-300 50 ML VIAL ONE (12:59)
[2021-09-14] MEDS ORDERED: IOVERSOL 320 100 ML VIAL IVP ONE ×2 (12:59→19:03)
[2021-09-14] MEDS ORDERED: IOPAMIDOL-300 50 ML VIAL PO ONE (19:04)
--- NOTE | 2021-09-15 09:19 | CT Report ---
PROCEDURE: CHEST W INDICATIONS: BREAST, BONE AND ADRENAL CA CONTRAST: IV CONTRAST: Optiray 320 ml: 100 PO CONTRAST: *NO PO CONTRAST TECHNIQUE: After the administration of intravenous contrast, 1 mm axial images were acquired from the pulmonary apices through the posterior costophrenic angles. Axial 5 mm soft tissue kernel reconstructions were performed as well as 8 mm axial MIP and coronal and sagittal 5 mm reformations. For radiation dose reduction, the following was used: automated exposure control, adjustment of mA and/or kV according to patient size. COMPARISON: 05/12/2021 FINDINGS: Image quality: Excellent. Lungs and pleura: Diffuse peripheral groundglass opacities and early fibrotic changes are noted. This was seen on prior CT on 05/12/2021, however is more prominent on today's CT. This is likely due to p rogression of fibrosis, but is still relatively mild. No focal consolidation. No acute airspace opaci ty. No pleural effusions or pneumothorax. Central and peripheral airways are patent and normal in ca liber. Mediastinum: Heart size is normal. No pericardial effusion. Enlarged mediastinal lymph nodes are pr esent. The largest a subcarinal lymph node is unchanged measuring 4.0 x 2.7 cm compared to 4.2 x 2.6 cm on the prior CT. A precarinal lymph node is smaller measuring 2.9 x 2.5 cm compared to 3.5 x 2.9 c m on the prior CT. A right paratracheal lymph node is unchanged measuring 1.4 x 1.5 cm compared to 1. 5 x 1.5 cm. The esophagus has a normal caliber. Heart size is normal. A previously described right th yroid hypodensity is not as well visualized due to a slightly different phase of contrast, but is not larger. Bones and chest wall: Since the prior CT on 05/12/2021 the patient has undergone multilevel pedicular screw and taylor fixation spanning from T2 through T6 fixating a T4 and T5 compression fracture seen on the prior CT. There are multiple lytic foci in the thoracic spine more caudally, involving T8, T10, T11, and L1 most severely. These lytic foci are larger compared to the prior study multiple lytic foc i in the ribs as well as multiple pathologic fractures in the right ribs are new and larger compared to the prior CT. Lytic/sclerotic foci in the sternum are new. Soft tissue nodules seen in the anterio r chest wall and right axilla are larger and increased in number. For example a right axillary nodule measures 1.8 x 1.6 cm compared to 1.3 x 0.9 cm on the prior CT. Abdomen: Bilateral adrenal masses are unchanged with the right adrenal gland mass measuring 3.9 x 3.3 cm. Peritoneal nodules likely metastasis are unchanged in size and number. IMPRESSION: 1. Progressive osseous metastatic disease. 2. Postoperative changes of fixation of the upper thoracic spine. No new compression fractures, howev er multiple thoracic vertebra demonstrate enlarging areas of lytic changes. 3. Numerous enhancing subcutaneous nodules in the right upper chest wall and axilla, and anterior low er chest wall bilaterally, likely metastatic disease, larger and more numerous compared to the prior CT. 4. Bilateral adrenal nodules/masses, left larger than right, unchanged compared to the prior CT. Reviewed by: Jake Mcnally on 09/15/2021 9:18 AM [facility] Approved by: Jake Mcnally on 09/15/2021 9:18 AM [facility] Station ID: [id number]
--- NOTE | 2021-09-15 09:26 | CT Report ---
PROCEDURE: Abdomen/Pelvis W INDICATIONS: BREAST, BONE AND ADRENAL CA CONTRAST: IV CONTRAST: Optiray 320 ml: 100 PO CONTRAST: *NO PO CONTRAST TECHNIQUE: After the administration of contrast, 5 mm thick sections acquired from the diaphragms to the sym physis. 5 mm thick coronal and sagittal reformats were acquired. For radiation dose reduction, the following was used: automated exposure control, adjustment of mA and/or kV according to patient size . COMPARISON: None. FINDINGS: Image quality: Excellent. ABDOMEN: Lung bases: See separately dictated CT of the chest. Solid organs: Liver and spleen are normal in size and enhancement. Gallbladder is normal Biliary s ystem is non dilated. Pancreas enhances normally. Both adrenal glands have masses measuring 3.1 x 2. 2 cm on the right and 3.1 x 3.5 cm on the left. Kidneys demonstrate normal size and enhancement, without hydronephrosis. Peritoneum and bowel: Innumerable peritoneal nodules consistent with metastatic disease are seen thr oughout the peritoneum. These measure up to 1 cm in diameter. Bowel loops demonstrate normal wall thi ckness and caliber. No free fluid or air. Nodes and vessels: No retroperitoneal or mesenteric adenopathy by size criteria. Aorta and inferior vena cava are normal in size. Miscellaneous: No ventral hernias. PELVIS: Genitourinary: Bladder wall thickness is normal. Miscellaneous: No inguinal hernias or adenopathy. Bones: There is diffuse lytic osseous disease involving all of the lumbar vertebra. No compression fr actures. Lytic sclerotic lesions involving the pelvis and both hips are also seen consistent with oss eous metastatic disease. IMPRESSION: 1. Bilateral adrenal masses, likely metastatic disease. 2. Diffuse lytic/sclerotic osseous metastatic disease. 3. Peritoneal metastatic disease. Reviewed by: Jake Mcnally on 09/15/2021 9:25 AM [facility] Approved by: Jake Mcnally on 09/15/2021 9:25 AM PST Station ID: [id number]
== END 2021-09-14 11:57 | disposition home or self-care (01) ==
LOC: DI 11:56
PROVIDERS: ATTEND Internal Medicine Hematology & Oncology
DX: C41.2 Malignant neoplasm of vertebral column (principal); C50.912 Malignant neoplasm of unspecified site of left female breast; C79.51 Secondary malignant neoplasm of bone; C79.71 Secondary malignant neoplasm of right adrenal gland; C79.72 Secondary malignant neoplasm of left adrenal gland; C78.6 Secondary malignant neoplasm of retroperitoneum and peritoneum; R91.8 Other nonspecific abnormal finding of lung field
CPT/HCPCS: 71260; 74177; Q9967

== ENCOUNTER 2021-09-19 10:47 | Outpatient (CLI) | payer MEDICARE ==
[2021-09-14 12:41] LABS: ALBUMIN 3.1 g/dL (3.2-5.5); ALBUMIN/GLOBULIN RATIO 0.9 (1.0-2.2); BILIRUBIN,TOTAL 0.6 mg/dL (0.2-1.0); CALCIUM 10.4 mg/dL (8.5-10.3); CREATININE 1.6 mg/dL (0.4-1.0); POTASSIUM 4.7 mmol/L (3.5-5.0); TOTAL PROTEIN 6.6 g/dL (6.7-8.2)
--- NOTE | 2021-09-19 18:54 | XRAY Report ---
PROCEDURE: Thoracic Spine 2 View, x-ray INDICATIONS: T-SPINE FX TECHNIQUE: 3 views of the thoracic spine were acquired. COMPARISON: 05/10/2021 FINDINGS: Generalized decreased osseous mineralization. There is been a decompressive laminectomies at T4 proba tima T5 supported by posterior taylor and screw construct extending from T1 through T6. New wedge-shaped compression fractures at T6 and T7 with approximately 50% height loss appeared remainder the vertebra l body heights are maintained. Surgical clips noted in the left axilla. Vascular calcification noted in the aortic arch. IMPRESSION: 1. Interval T4 decompressive laminectomy with posterior taylor and screw instrumentation Mr. 2. New T6 and T7 compression fractures 3. Generalized osteopenia Reviewed by: Nathan Jha MD on 09/19/2021 5:52 PM AKST Approved by: Nathan Jha MD on 09/19/2021 5:52 PM AKST Station ID: [id number]
== END 2021-09-19 10:48 | disposition home or self-care (01) ==
LOC: DI 10:47
PROVIDERS: ATTEND Neurological Surgery
DX: M84.58XD Pathological fracture in neoplastic disease, other specified site, subsequent encounter for fracture with routine healing (principal); M48.54XA Collapsed vertebra, not elsewhere classified, thoracic region, initial encounter for fracture; M85.88 Other specified disorders of bone density and structure, other site
CPT/HCPCS: 36415; 80053

== ENCOUNTER 2021-09-19 15:05 | Outpatient (CLI) | payer MEDICARE ==
--- NOTE | 2021-09-19 16:05 | CONSULTATION NOTE ---
Palliative Care Follow Up - Referral Referring Provider: Dr. Noam Espinal Time of Visit: [id number] Referral setting: Home Referral Reason: Oral candidasis/Pain of neoplasm - Information Sources Records reviewed: Previous records reviewed History/Review of Systems obtained from: Patient, Family (spouse/DPOA, BIll) Exam limitations: Clinical condition (+STM impairment) - History of Present Illness Update Brief HPI Update: This is a joe 75-year-old female who was seen in Pap today within her home due to metastatic malignancy, pain of neoplastic origin and oral candidiasis with her spouse/DPOA Bill present. Provider wore N95 mask. The patient spouse is reporting that the patient has been talking out loud in her sleep for approximately 1 month. This is not happened previously. There is no sleepwalking. The patient does not remember any vivid dreams or that she was talking when she awakens. This is not contributing to any discomfort per the patient and spouse's report. The patient continues to report that she is without pain. She remains on MS Contin 15 mg nightly. She has not needed any breakthrough pain medication. She has a desire to taper off of the MS Contin. Her dexamethasone was reduced to 1 mg daily last week and she has not noted any increase in pain. Having routine bowel movements. Continues to have a decreased oral intake however, trying to eat frequently during the day. She will occasionally have a Premier protein drink that we will have added fruit to it. Patient has been staying at 109 pounds consistently and has not had any further weight loss. The patient for the last 3 days had increased headaches. At baseline, the patient has frequent headaches that go from mandaen to mandaen. No reported aura. The last 3 days she denies any blurred vision or double vision. Today however, the patient is without a headache. Typically taking Excedrin is effective. She has had a work-up in the past for these headaches but there was no underlying cause determined. Past Medical History: Patient has a history of hyperlipidemia, left breast cancer in 2002, left breast lumpectomy a lymph with lymph node dissection in 2002, impaired glucose previously on Metformin and has not been on for many years; T3-T4 laminectomy with tumor resection as well as T2-T6 fusion 04/2021, history of iron deficiency anemia. Social History - Living Situation Living arrangement: At home Living Situation: With spouse/s.o. Support System: Patient grew up on [facility]. She has a brother whom she has been estranged from for a number of years. The patient and her spouse, Ibrahima have been for approximately 52 years. They have 1 son, Riki who resides in [place] as well as her granddaughter. With the improving weather the patient is ambulating more outside. They have a neighbor, Sascha who they walk with and checks on her regularly. Medications/Allergies - Medications Home Medications: Ambulatory Orders Medication Instructions Recorded Confirmed oxyCODONE [Roxicodone] 2.5 - 5 mg PO Q4H PRN 06/12/21 09/12/21 Letrozole 2.5 mg PO DAILY 06/13/21 09/12/21 polyethylene glycoL 3350 [Miralax] 17 gm PO DAILY 06/28/21 09/12/21 Palbociclib [Ibrance] 75 mg PO DAILY 07/03/21 09/12/21 Calcium Carbonate/Vitamin D3 1 tab PO DAILY 07/06/21 09/12/21 [Calcium 500 mg-Vit D3 600 Unit] Magnesium Oxide [Magnesium] 1 cap PO DAILY 07/06/21 09/12/21 Naloxone HCl Nasal [Narcan] 4 mg INH PRN PRN MDD as directed 07/06/21 09/12/21 Sennosides/Docusate Sodium [Senna 2 tab PO QPM 07/06/21 09/12/21 Plus 8.6-50 mg Tablet] Vitamin D 3 2,000 unit PO DAILY 07/06/21 09/12/21 flaxseed oiL [Flaxseed Oil] 1,400 mg PO DAILY 07/06/21 09/12/21 dexAMETHasone [Decadron] 1 mg PO MDD with food 07/18/21 09/12/21 oxyCODONE [Roxicodone] 2.5 mg PO TID 09/19/21 09/19/21 - Allergies Allergies/Adverse Reactions: Allergies Allergy/AdvReac Type Severity Reaction Status Date / Time No Known Drug Allergies Allergy Verified 08/28/21 14:43 Review of Systems - Constitutional Constitutional: reports: Weight gain (weight 50.4kg 08/28/21), Weight stable (109lb per report 09/19/21). denies: Fever - Eyes Eyes: denies: Blurred vision, Vision loss - Ears, Nose & Throat Ears, Nose & Throat: denies: Dentures, Mouth lesions - Cardiovascular Cardiovascular: denies: Chest pain, Edema - Respiratory Respiratory: denies: Wheezing - Gastrointestinal Gastrointestinal: reports: Early satiety, Other (see HPI). denies: Abdominal pain, Constipation, Nausea - Genitourinary Genitourinary: denies: Dysuria - Musculoskeletal Musculoskeletal: denies: Back pain, Assistive devices, Transfer issues, Other (right scapula no pain present) - Neurological Neurological: reports: General weakness, Memory problems - Endocrine Endocrine: reports: Other (impaired fasting glucose previously on metformin "years ago"; hypercalcemia due to metastasis--getting IV hydration) - Hematologic/Lymphatic Hematologic/Lymph: reports: Bruising - All Other Systems All Other Systems: reports: Reviewed and negative (spouse supplemented) Physical Exam - Vital Signs Temperature: 36.7 C Pulse Rate: 91 O2 Saturation: 96 Blood Pressure: 117/82 (right wrist) - Physical Exam General Appearance: positive: No acute distress, Alert, Cachetic Eyes Bilateral: positive: Normal inspection ENT: negative: No signs of dehydration, Oral lesions Neck: positive: Trachea midline, Other (+thin) Cardiovascular: positive: Regular rate & rhythm, No murmur Respiratory: positive: No respiratory distress, Breath sounds nml Abdomen: positive: Non-tender, Soft, Nml bowel sounds Skin: positive: Pressure wound (scab to right great toe without discharge or erythema) Extremities: positive: Full ROM, No pedal edema, Other (spine nontender to palpation) Neurologic/Psychiatric: positive: Oriented x3, Mood/affect nml, Weakness, Other (Differed less to spouse today for answering questions) Palliative Care - POLST Patient has POLST: No Pain: No pain (Controlled with MS COntin 15mg nightly and no use of PRN oxycodone. Patient wishes to come of the MS Contin.) Tiredness/Fatigue: Moderate (4-6) Nausea: None Anorexia: Moderate (4-6) Dyspnea: None Depression: None Anxiety: None Sleep: Sleeps well, Other (+talking in sleep) Constipation: Yes, Opoid induced, Managed - Palliative Care Discussion: The patient continues to be without pain and is presently on MS Contin. Patient has a desire to come off of opioid therapy as her symptoms have resolved related to her pain. Discussed cannot abruptly stop MS Contin without being tapered and therefore will initiate oxycodone 2.5 mg in the morning, 2.5 mg in the afternoon and 2.5 mg at bedtime for at least the next 7 days and then will reassess tapering further. Patient to discontinue MS Contin this evening moving forward. We will also reduce dexamethasone to 1 mg every other day x3 days and then every 3 days x 7 days then stop. Patient and spouse are aware to contact palliative care if she has any return of her pain. She continues to have recurring hypercalcemia as well as a rising tumor marker and is to have a follow-up with oncology on 09/25 to review images and plan of care moving forward. And The patient continues to have reports of early satiety and decreased appetite. Lengthy discussion was had regarding small frequent meals and protein shake supplementation. Open discussion about introducing Remeron for appetite stimulation and if underlying depression or sleep disturbances however, the patient was not open or amenable to having this implemented. 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 Patient continues to have anorexia. She continues to be without pain and therefore will discontinue MS Contin and start standing oxycodone during the day to act as long acting opioid therapy with the goal to taper and discontinue. We will also further dose reduce the dexamethasone to discontinue. Palliative care to continue to build rapport, explore goals of care, provide care coordination, pain and symptom management as well as anticipatory guidance. Recommendations/Counseling Done: 1. Anorexia. Patient did not have improvement of her appetite with higher doses of dexamethasone. Advised to have small frequent snacks and meals throughout the day. Encourage utilization of protein supplementation drink at least once per day. Is maintaining her weight however, is not gaining. Emphasis provided on maintaining weight and activity. We will continue to monitor. 2. Pain of neoplastic origin. Improved. Discontinue MS Contin 15 mg nightly. Initiate oxycodone 2.5 mg in the a.m., oxycodone 2.5 mg in the afternoon, and oxycodone 2.5 mg in the evening standing for at least the next 7 days and then will reassess how the patient is doing and then further dose reduce with the goal to taper. Reduce dexamethasone to 1 mg every other day x3 days and then 1 mg every 3 days x 7 days and then discontinue. Has Narcan in the home. Aware to contact palliative care if any return of symptoms for reevaluation. Continue to monitor. 3. Oral candidiasis. Resolved. Status post one dose of 150 mg of Diflucan and nystatin suspension. Discontinue nystatin suspension. 4. 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 Status post T4 compression and radiation therapy 04/2021. Presently on letrozole and Ibrance. Follow-up with oncology after restaging scans on 09/25. Treatment is palliative with intent. Has a history of left breast cancer originally diagnosed in 2002. Continue to be followed by oncology and neurosurgery. Total time spent 35 minutes with greater than 50% spent in counseling coronation of care with the patient and spouse/DPOA; review of pain medication and dosage tapering; review of symptom management; and anticipatory guidance. Disclaimer: The chart note was formulated using voice recognition technology and unfortunately sound alike errors may occur.
== END 2021-09-19 15:06 | disposition home or self-care (01) ==
LOC: PC 15:05
PROVIDERS: ATTEND Nurse Practitioner Family
DX: Z51.5 Encounter for palliative care (principal); R63.0 Anorexia; G89.3 Neoplasm related pain (acute) (chronic); C50.919 Malignant neoplasm of unspecified site of unspecified female breast; C79.51 Secondary malignant neoplasm of bone; Z79.891 Long term (current) use of opiate analgesic
CPT/HCPCS: 99348

== ENCOUNTER 2021-09-28 10:41 | Outpatient (CLI) | payer MEDICARE ==
--- NOTE | 2021-09-28 17:18 | CT Report ---
PROCEDURE: THORACIC SPINE WO INDICATIONS: T-SPINE FX TECHNIQUE: Noncontrast 3 mm thick sections acquired through the region of interest in the thoracic spine. Sagit hafsa and coronal reformats were then constructed. For radiation dose reduction, the following was used : automated exposure control, adjustment of mA and/or kV according to patient size. COMPARISON: 09/19/2021 thoracic spine radiograph, CT of chest dated 09/14/2021, nuclear medicine bone scan dated 07/05/2021, and CT of thoracic spine dated 05/12/2021. FINDINGS: Image quality: Diagnostic. Feeding hardening artifacts from thoracic spine fusion hardware are seen. Bones: Patient is status post posterior fusion of upper to mid thoracic spine from T2 through T6 lev els. There is compression deformities at T4 and T5 levels not significantly changed from previous alla dy. There is interval development of superior endplate compression deformity at T6 level with 35% los s of T6 vertebral body height anteriorly. Interval development of compression deformity at T7 level i s also seen with up to 30% loss of T7 vertebral body height anteriorly. There is also interval develo pment of superior endplate compression deformity at T11 level with 20-25% loss of T11 vertebral body height anteriorly. Acute to subacute appearing superior endplate compression deformity is also seen a t L1 level with up to 10% loss of L1 vertebral body height anteriorly. Extensive lytic lesions are se en scattered throughout thoracic spine vertebral bodies and visualized upper lumbar spine vertebral b odies consistent with extensive bony metastases. No significant spondylolisthesis is seen. No definit e hardware loosening or failure is noted. There are lytic lesions seen involving bilateral posterior ribs with likely pathologic fractures involving right posterior fifth through ninth ribs. Soft tissues: No definite paravertebral masses or hematomas. Bilateral adrenal masses are seen cory r evaluated on previous CT of abdomen and pelvis study dated 09/14/2021. Dependent atelectasis in post erior aspect of bilateral lung bonner are seen. IMPRESSION: 1. Extensive bony metastasis throughout visualized thoracic spine, upper lumbar spine and bilateral r ibs with interval development of pathologic fractures at T6, T7, T11, and L1 levels as above. 2. Again noted are likely pathologic compression fracture at T4 and T5 levels with interval posterior fusion at T2-T6 levels. 3. Multiple likely pathologic fractures involving right posterior ribs as above. 4. No definite paraspinous soft tissue mass or hematoma. Dependent atelectasis in posterior aspect of bilateral visualized lung bonner. 5. Bilateral adrenal masses better evaluated on previous CT of abdomen and pelvis study. Reviewed by: Johnnie Burgess MD on 09/28/2021 5:17 PM PST Approved by: Johnnie Burgess MD on 09/28/2021 5:17 PM PST Station ID: [id number]
== END 2021-09-28 10:42 | disposition home or self-care (01) ==
LOC: DI 10:41
PROVIDERS: ATTEND Neurological Surgery
DX: M84.58XD Pathological fracture in neoplastic disease, other specified site, subsequent encounter for fracture with routine healing (principal); M84.48XA Pathological fracture, other site, initial encounter for fracture; C79.51 Secondary malignant neoplasm of bone; E27.8 Other specified disorders of adrenal gland

== ENCOUNTER 2021-10-02 12:40 | Outpatient (CLI) | payer MEDICARE ==
--- NOTE | 2021-10-02 13:49 | CONSULTATION NOTE ---
Palliative Care Follow Up - Referral Referring Provider: Dr. Tab Valle Time of Visit: 7810-1118 [place] setting[place] [facility]erral Reason: Headache/MCI/Metastatic Breast Ca - Information Sources Records reviewed: Previous records reviewed History/Review of Systems obtained from: Patient, Family (spouse/DPOA Bill) Exam limitations: Clinical condition (+STM impairment) - History of Present Illness Update Brief HPI Update: This is a joe 75-year-old female who is seen in follow-up today at [facility] due to metastatic malignancy, headaches, and advance care planning with her spouse/DPOA Bill present. Provider were N95 mask. The patient has been experiencing headaches. This began before transitioning off of MS Contin or dose reduction of dexamethasone. She has a pending MRI of the brain this evening at [facility] to evaluate for brain metastases. Given the patient was having persistent headaches without relief patient's dexamethasone was bumped back up to 2 mg twice daily and presently is on dexamethasone 2 mg in the morning and 1 mg in the afternoon. She is also had her oxycodone increased to 5 mg in the morning, two-point 5 in the afternoon, 5 mg in the evening. Intermittently the spouse will administer 2.5 mg on oxycodone periodically during the day. She had a "spot of a headache" today and took an Excedrin. Things have slowed down with her headaches being less incapacitating home where she would be in bed and not eating or drinking much. With the increase of the dexamethasone her appetite has not improved and she has had a gain of approximately 2 pounds. She is also looking more for snacks throughout the house. Since discontinuation of MS Contin she is no longer having talk during her sleep. She continues to have routine bowel movements. In follow-up with oncology today next step would be Taxol infusions in 3 weeks but it would be with palliative intent. This is something that the patient and spouse need to discuss further regarding decision making over the next 3 weeks. Past Medical History: Patient has a history of hyperlipidemia, left breast cancer in 2002, left breast lumpectomy a lymph with lymph node dissection in 2002, impaired glucose previously on Metformin and has not been on for many years; T3-T4 laminectomy with tumor resection as well as T2-T6 fusion 04/2021, history of iron deficiency anemia. Social History - Living Situation Living arrangement: At home Living Situation: With spouse/s.o. Support System: Patient grew up on [facility]. She has a brother whom she has been estranged from for a number of years. The patient and her spouse, Ibrahima have been for approximately 52 years. They have 1 son, Riki who resides in [place] as well as her granddaughter. So Riki is coming to visit on 10/13 for 4 days. Medications/Allergies - Medications Home Medications: Ambulatory Orders Medication Instructions Recorded Confirmed oxyCODONE [Roxicodone] 2.5 - 5 mg PO Q4H PRN 06/12/21 09/25/21 Letrozole 2.5 mg PO DAILY 06/13/21 09/25/21 polyethylene glycoL 3350 [Miralax] 17 gm PO DAILY 06/28/21 09/25/21 Palbociclib [Ibrance] 75 mg PO DAILY 07/03/21 09/25/21 Calcium Carbonate/Vitamin D3 1 tab PO DAILY 07/06/21 09/25/21 [Calcium 500 mg-Vit D3 600 Unit] Magnesium Oxide [Magnesium] 1 cap PO DAILY 07/06/21 09/25/21 Naloxone HCl Nasal [Narcan] 4 mg INH PRN PRN MDD as directed 07/06/21 09/25/21 Sennosides/Docusate Sodium [Senna 2 tab PO QPM 07/06/21 09/25/21 Plus 8.6-50 mg Tablet] Vitamin D 3 2,000 unit PO DAILY 07/06/21 09/25/21 flaxseed oiL [Flaxseed Oil] 1,400 mg PO DAILY 07/06/21 09/25/21 dexAMETHasone [Decadron] mg PO MDD .2mg in AM, 1mg afternoon 07/18/21 09/25/21 oxyCODONE [Roxicodone] PO MDD .5mg AM, 2.5mgafter, 5mg PM 09/19/21 09/25/21 - Allergies Allergies/Adverse Reactions: Allergies Allergy/AdvReac Type Severity Reaction Status Date / Time No Known Drug Allergies Allergy Verified 08/28/21 14:43 Review of Systems - Constitutional Constitutional: reports: Fatigue, Weight gain (2lbs). denies: Fever - Eyes Eyes: denies: Blurred vision, Vision loss - Ears, Nose & Throat Ears, Nose & Throat: denies: Hearing loss - Cardiovascular Cardiovascular: reports: Edema (+feet). denies: Chest pain - Respiratory Respiratory: denies: Cough - Gastrointestinal Gastrointestinal: reports: Other (see HPI). denies: Abdominal pain, Constipation (Controlled with regimen), Vomiting - Genitourinary Genitourinary: denies: Dysuria - Musculoskeletal Musculoskeletal: reports: Stiffness. denies: Transfer issues - Integumentary Integumentary: reports: Other (bruising to chest wall) - Neurological Neurological: reports: General weakness, Memory problems - Endocrine Endocrine: reports: Other (impaired fasting glucose previously on metformin "years ago"; hypercalcemia due to metastasis--getting IV hydration) - Hematologic/Lymphatic Hematologic/Lymph: reports: Bruising - All Other Systems All Other Systems: reports: Reviewed and negative (spouse supplemented) Physical Exam - Physical Exam General Appearance: positive: No acute distress, Alert, Cachetic Eyes Bilateral: positive: Normal inspection ENT: positive: No signs of dehydration Neck: positive: Trachea midline Cardiovascular: positive: Regular rate & rhythm, No murmur Respiratory: positive: No respiratory distress, Breath sounds nml Abdomen: positive: Non-tender, Soft, Nml bowel sounds Skin: positive: Other (Petchiae to chest wall) Extremities: positive: Non-tender, Full ROM, Pedal edema (+1 pedal edema bilaterally) Neurologic/Psychiatric: positive: Oriented x3 (+Cognitive impairment re: short term recall), Mood/affect nml Palliative Care - POLST Patient has POLST: No Pain: No pain, Pain improved (oxycodone 5mg in AM, 2.5mg in afternoon, 5mg in PM and dexamethasone scheduled) Tiredness/Fatigue: Severe (7-10) Drowsiness/Sedation: Mild (1-3) Nausea: None Anorexia: Severe (7-10) Dyspnea: None Anxiety: None Feelings of wellbeing/Perceived Quality of Life: Fair Sleep: Sleeps well Constipation: Yes, Opoid induced - Palliative Care Discussion: Patient met with oncologist prior to this INTERVENTIONAL CARDIOLOGIST's visit and visit was supplemented by spouse who relays that next course would be Taxol infusions and would not be curative in intent. If no interventions were to be performed then the patient may have a prognosis of approximately 6 months versus 1 to 2 years with Taxol infusions. However, the patient's perceives that this is a poor prognosis as she has remnants regarding her memory of Taxol infusions approximately 20 years ago and has reservations regarding moving forward with this. She wishes to think further and have a discussion with her spouse and son when he visits in person to let him know the severity of of her disease trajectory and make a decision before potential initiation of Taxol therapy. Reviewed with the patient today that at any point that things do not sit with her emotionally, physically, or spiritually she can make a decision to change course and she appreciated this discussion. The patient has an MRI of the brain pending given her most recent intense and severe headaches and oncology to follow-up regarding this. Patient and spouse rely heavily on their makenzie and wish to have time to contemplate things further before more detailed discussions regarding plan of care. 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 Some mild improvement with anorexia with increase of dexamethasone. Headaches can have decreased and has had brain MRI pending and will follow with results. Given the patient's symptoms have improved with dose titration of dexamethasone and oxycodone will continue at present dosages at this time versus slow taper. Palliative care to continue to build rapport, explore goals of care, provide care coordination, pain and symptom management as well as anticipatory guidance. Recommendations/Counseling Done: 1.Headaches. Longstanding history. Recent increase in intensity and persistence. In the setting of metastatic breast cancer brain MRI with and without contrast pending for 10/02 at [facility]. 2. Cognitive impairment with short-term memory. Patient will repeat questions and not able to retain new information at times in the setting of hypercalcemia and headaches. Brain MRI pending for 10/02. Continues to have IV hydration. Benefits from support from spouse who can supplement information. 3. Pedal edema. Recommend obtainment of diabetic compression socks for ease a donning and doffing to be applied in the morning and removed in the evening. Continue to monitor. 4. Pain of neoplastic origin. Improved. Continue oxycodone 5 mg in the morning, oxycodone 2.5 mg in the afternoon, oxycodone 5 mg in the evening. Continue breakthrough oxycodone as prescribed. Continue dexamethasone 2 mg in t he morning and 1 mg in the afternoon. Based on MRI and patient's symptoms we will continue to consider slow dose reduction. 5. Metastatic breast cancer to the spine with T4 spinal cord compression status post T4 compression and radiation therapy 04/2021. Presently on letrozole and Ibrance. Treatment is palliative with intent. Has a history of left breast cancer originally diagnosed in 2002. Followed by oncology and neurosurgery. 6. Advanced care planning. Patient and spouse are aware of poor prognosis and they wish some time to process before moving forward with making decisions regar ding initiation of Taxol infusions given the patient's prior experience with this infusion. The patient also wishes to have a conversation in person with her son regarding next steps and prognosis. Both the patient and spouse would feel supported if palliative care were to follow-up after some time has passed to process this additional information. Supportive and empathetic listening provided. Total time spent 25 minutes with greater than 50% of that spent in counseling and coordination of care with the patient and spouse; review of plan of care; examination of patient; pain and symptom management as well as anticipatory guidance. Disclaimer: The chart note was formulated using voice recognition technology and unfortunately sound alike errors may occur.
== END 2021-10-02 12:41 | disposition home or self-care (01) ==
LOC: PC 12:40
PROVIDERS: ATTEND Nurse Practitioner Family
DX: Z51.5 Encounter for palliative care (principal); R51.9 Headache, unspecified; Z79.52 Long term (current) use of systemic steroids; Z79.891 Long term (current) use of opiate analgesic; C79.51 Secondary malignant neoplasm of bone; G89.3 Neoplasm related pain (acute) (chronic); R63.0 Anorexia; R41.3 Other amnesia; R60.0 Localized edema; Z85.3 Personal history of malignant neoplasm of breast; R53.83 Other fatigue; R53.1 Weakness; K59.03 Drug induced constipation; T40.2X5A Adverse effect of other opioids, initial encounter
CPT/HCPCS: 99214

== ENCOUNTER 2021-10-10 10:40 | Outpatient (CLI) | payer MEDICARE ==
--- NOTE | 2021-10-10 13:51 | CONSULTATION NOTE ---
Palliative Care Follow Up - Referral Referring Provider: Dr. Tab Valle Time of Visit: 8411-6341 Referral setting: Home Referral Reason: Headaches/MCI/Metastatic Breast Cancer - Information Sources Records reviewed: Previous records reviewed History/Review of Systems obtained from: Patient, Family (spouse/DPOA) Exam limitations: Clinical condition (+STM impairment) - History of Present Illness Update Brief HPI Update: This is a joe 75-year-old female who is seen in follow-up today at her home due to metastatic malignancy, headaches, abdominal pain and advance care planning with her spouse/DPOA Bill present. Provider were N95 mask. Patient has been experiencing headaches that are worse from her baseline. This began before transitioning off of MS Contin or dose reduction of dexamethasone. She is status post MRI of the brain from 10/02/2021 that demonstrated "mild volume loss. Minimal small vessel ischemic disease. No acute process. No recent infarction. No explanation of headaches." Therefore, no evidence of brain metastases. Even with the increase of dexamethasone and addition of routine oxycodone the patient has not had the headaches stevan. She continues to take Excedrin when she needs it for headaches. Intermittently spouse will administer breakthrough oxycodone without much effect. Over the last 3-4 nights the headache is typically gone at 5-6 PM as if it was never there. She denies any visual changes with these headaches. Spouse has also noticed some skin breakdown to the left buttocks and they have been applying Neosporin. Patient denies any tenderness at the site. Since the weekend the patient has been having on and off abdominal pain. Initially believed it was due to dairy however, the patient always enjoys patricia crackers and milk as well as ice cream and never had a problem in the past. She denies any nausea. She is typically having a bowel movement and defecating adequately every 2 days. Last bowel movement was yesterday. She has tried Pepto Ismol, Brittni-[place], and 7-Up for the abdominal discomfort. She denies any heartburn or reflux. Past Medical History: Patient has a history of hyperlipidemia, left breast cancer in 2002, left breast lumpectomy a lymph with lymph node dissection in 2002, impaired glucose previously on Metformin and has not been on for many years; T3-T4 laminectomy with tumor resection as well as T2-T6 fusion 04/2021, history of iron deficiency anemia. Social History - Living Situation Living arrangement: At home Living Situation: With spouse/s.o. Support System: Patient grew up on [facility]. She has a brother whom she has been estranged from for a number of years. The patient and her spouse, Ibrahima have been for approximately 52 years. They have 1 son, Riki who resides in [place]. Son Riki is coming to visit on 10/13 for 4 days. They are getting a puppy November 01. Medications/Allergies - Medications Home Medications: Ambulatory Orders Medication Instructions Recorded Confirmed oxyCODONE [Roxicodone] 2.5 - 5 mg PO Q4H PRN 06/12/21 10/04/21 Letrozole 2.5 mg PO DAILY 06/13/21 10/04/21 polyethylene glycoL 3350 [Miralax] 17 gm PO DAILY 06/28/21 10/04/21 Palbociclib [Ibrance] 125 mg PO DAILY 07/03/21 10/04/21 Naloxone HCl Nasal [Narcan] 4 mg INH PRN PRN MDD as directed 07/06/21 10/04/21 Sennosides/Docusate Sodium [Senna 2 tab PO QPM 07/06/21 10/04/21 Plus 8.6-50 mg Tablet] dexAMETHasone [Decadron] 2 mg PO DAILY 07/18/21 10/04/21 Alprazolam [Xanax] 1 tab PO BID PRN 10/02/21 10/04/21 Nystatin [Mycostatin] 5 ml PO BID 10/04/21 10/04/21 Amitriptyline [Elavil] 10 mg PO QPM 10/10/21 10/10/21 Hyoscyamine [Levsin] 1 tab PO BID PRN 10/10/21 10/10/21 oxyCODONE [Roxicodone] MDD 5mgAM, 2.5mgafternoon, 5mgpm 10/10/21 - Allergies Allergies/Adverse Reactions: Allergies Allergy/AdvReac Type Severity Reaction Status Date / Time soybean AdvReac Headache Verified 10/04/21 11:10 Review of Systems - Constitutional Constitutional: reports: Fatigue, Poor appetite. denies: Fever - Eyes Eyes: denies: Blurred vision, Dipolpia - Ears, Nose & Throat Ears, Nose & Throat: denies: Hearing loss - Cardiovascular Cardiovascular: denies: Chest pain, Edema (Improved with use of diabetic compression socks to feet) - Respiratory Respiratory: denies: Cough - Gastrointestinal Gastrointestinal: reports: Abdominal pain. denies: Abdominal distention, Constipation (Controlled with regimen, see HPI), Nausea, Vomiting - Musculoskeletal Musculoskeletal: reports: Stiffness. denies: Joint pain, Transfer issues - Integumentary Integumentary: reports: Other (bruising to chest wall; skin breakdown left buttocks--se HPI) - Neurological Neurological: reports: General weakness, Headache, Memory problems. denies: Dizziness, Other (Falls) - Psychiatric Psychiatric: reports: Other (Mood swings per spouse) - Endocrine Endocrine: reports: Other (impaired fasting glucose previously on metformin "years ago"; hypercalcemia due to metastasis--getting IV hydration) - Hematologic/Lymphatic Hematologic/Lymph: reports: Bruising - All Other Systems All Other Systems: reports: Reviewed and negative (spouse supplemented) Physical Exam - Vital Signs Temperature: 36.6 C Pulse Rate: 78 O2 Saturation: 96 (on RA) Blood Pressure: 118/86 - Physical Exam General Appearance: positive: No acute distress, Alert, Cachetic Eyes Bilateral: positive: Normal inspection ENT: positive: No signs of dehydration, Other (Trace evidence of candidasis to patient's tongue but not to oral buccal mucosa). negative: Oral lesions Neck: positive: Trachea midline Cardiovascular: positive: Regular rate & rhythm, No murmur Respiratory: positive: No respiratory distress, Breath sounds nml. negative: Diminished in bases Abdomen: positive: Non-tender, Soft, Nml bowel sounds. negative: Distended Skin: positive: Pressure wound (Left buttocks via image on phone: trace yellow slough to woundbed without maceration around wound), Other ( +purpura to chest wall) Extremities: positive: Non-tender, No pedal edema (Has compression socks in place) Neurologic/Psychiatric: positive: Oriented x3 (+Cognitive impairment re: short term recall, repeatedly needed to be reminded when the puppy is coming believing that next week was October and not still September.), Mood/affect nml Palliative Care - POLST Patient has POLST: No Pain: Comment (Pain with headaches, see HPI) Tiredness/Fatigue: Moderate (4-6) Drowsiness/Sedation: Moderate (4-6) Nausea: None Anorexia: Moderate (4-6) Dyspnea: None Constipation: Yes, Managed - Palliative Care Discussion: Patient's spouse notes continued decline regarding the patient's recall. He rel ays that when the patient will ask a question it is as if it is a new response every time. This was also evident during evaluation today with the patient unable to recall on 3 occasions that were answered that the puppy she and her spouse are obtaining is not coming until October believing that next week was October and not September. She also frequently will forget her pending appointment with the MAC or even with this provider and spouse will have to supplement and reorient again. The MRI did not show any brain metastases however, the patient continues with headaches. Given dexamethasone has not provided to benefit with managing her headaches will further reduce the dose to 2 mg daily and at next evaluation go to 1 mg daily to continue to taper off given side effects of purpura to the patient's skin as well as oral candidiasis that is resolving. The patient has reported trepidation regarding getting a port placed later this week for access. This brings back memories for her with her initial diagnosis of breast cancer approximately 20 years ago as well as the pending initiation of Taxol. The patient does relay that she "has to do what has to be done." She does recognize that she would have a choice if she does not wish to proceed with palliative chemotherapy however, at this time she wishes to move forward with the present plans and will be discussing the state of her health once her son is present for a 4-day visit at the end of the week. 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 Given lack of improvement with dexamethasone will further reduce to 2 mg daily. We will also trial amitriptyline 10 mg in the evening for headaches and mood. Patient continues to wish to move forward with palliative chemotherapy. Palliative care to continue to build rapport, explore goals of care, provide care coordination, pain and symptom management as well as anticipatory guidance. Recommendations/Counseling Done: 1. Headaches. Longstanding history. Recent increase in intensity and persistence. Concern for underlying cervical tension headaches. MRI of brain performed 10/02/2021 was negative for metastases. No explanation noted on MRI for headaches. Discussed utilization of Buckwheat pillow for headaches to obtain a s a trial. We will also initiate amitriptyline 10 mg at bedtime after review of purpose, dose, and side effects for headache/migraine prophylaxis as well as for assistance with depression and anxiety. 2. Cognitive impairment with short-term memory. Patient will quick questions and not able to retain new information at times in the setting of hypercalcemia and headaches. Brain MRI negative for metastases on 10/02. Continues to have IV hydration. At the present time, require support from her spouse for complex decision making. 3. Pressure ulcer stage II to left buttocks. In the setting of protein calorie malnutrition with albumin 2.7 on 10/02/21. Advised to use durable barrier cream applied to the site on the buttocks at least once daily and then as needed until healed. Advised to obtain Roho cushion [id number] to evenly distribute pressure. Discussed monitoring for signs and symptoms of infection. 4. Pain of neoplastic origin. Improved. Continue oxycodone 5 mg in the morning, oxycodone 2.5 mg in the afternoon, oxycodone 5 mg in the evening. Continue breakthrough oxycodone as prescribed. Reduce dexamethasone to 2 mg in the morning and discontinue 1 mg in the afternoon. Goal will be to slowly reduce oxycodone and dexamethasone as the patient's headaches improved and all parties are in agreement with plan. 5. Abdominal pain. Intermittent. Routine defecation and constipation not contributing. Unclear if this is GI spasms. Start Levsin 0.125 mg up to twice a day as needed for GI spasms as a trial. Reviewed purpose, dose, and side effects. Goal remains to have a bowel movement daily to every other day. 6. Oral candidiasis. Improving. Continue nystatin twice daily until resolved. Expect improved resolution with reduction of dexamethasone. 7. Advanced care planning. Patient is aware of poor prognosis and continues to wish to move forward with Taxol infusions. Plans to have a conversation with her son when he was present at the end of this week. Both patient and spouse would appreciate palliative care support for follow-up on 10/16 in the home while the son is still present for additional advance care planning and goals of care. Total time spent 50 minutes with greater than 50% of the spent in counseling and coordination of care with the patient and spouse; examination of patient; review of plan of care; pain and symptom management with review of medications, purpose, and side effects of new medications initiated as well as anticipatory guidance. Disclaimer: The chart note was formulated using voice recognition technology and unfortunately sound alike errors may occur.
[2021-10-10] MEDS ORDERED: PACLITAXEL IV ONE (14:00)
[2021-10-10] MEDS ORDERED: ZOLEDRONIC ACID 4 MG/100 ML 4 MG/100 ML BAG IV ONE (14:00)
[2021-10-10] MEDS ORDERED: SODIUM CHLORIDE 0.9% IV ONE (14:00)
== END 2021-10-10 10:41 | disposition home or self-care (01) ==
LOC: PC 10:40
PROVIDERS: ATTEND Nurse Practitioner Family
DX: Z51.5 Encounter for palliative care (principal); R51.9 Headache, unspecified; G89.3 Neoplasm related pain (acute) (chronic); C79.51 Secondary malignant neoplasm of bone; R41.3 Other amnesia; R41.89 Other symptoms and signs involving cognitive functions and awareness; R10.9 Unspecified abdominal pain; L89.322 Pressure ulcer of left buttock, stage 2; E83.52 Hypercalcemia; B37.0 Candidal stomatitis; Z79.899 Other long term (current) drug therapy; Z85.3 Personal history of malignant neoplasm of breast; Z79.891 Long term (current) use of opiate analgesic; Z79.52 Long term (current) use of systemic steroids
CPT/HCPCS: 99349

== ENCOUNTER 2021-10-12 12:55 | Day surgery (SDC) | payer MEDICARE ==
--- NOTE | 2021-10-12 13:13 | ANESTHESIA ---
Pre-Anesthesia VS, & Labs - Diagnosis metastatic breast cancer - Procedure portacath placement Height: 5 ft 9 in - NPO >8 hours - Is Patient ?: No Home Medications and Allergies Home Medications: Ambulatory Orders Nystatin [Mycostatin] 5 ml PO BID 10/04/21 oxyCODONE [Roxicodone] 2.5 - 5 mg PO Q4H PRN 06/12/21 Letrozole 2.5 mg PO DAILY 06/13/21 polyethylene glycoL 3350 [Miralax] 17 gm PO DAILY 06/28/21 Palbociclib [Ibrance] 125 mg PO DAILY 07/03/21 Naloxone HCl Nasal [Narcan] 4 mg INH PRN PRN MDD as directed 07/06/21 Sennosides/Docusate Sodium [Senna Plus 8.6-50 mg Tablet] 2 tab PO QPM 07/06/21 dexAMETHasone [Decadron] 2 mg PO DAILY 07/18/21 Alprazolam [Xanax] 1 tab PO BID PRN 10/02/21 Nystatin [Mycostatin] 5 ml PO BID 10/04/21 Amitriptyline [Elavil] 10 mg PO QPM 10/10/21 Hyoscyamine [Levsin] 1 tab PO BID PRN 10/10/21 Allergies/Adverse Reactions: Allergies Allergy/AdvReac Type Severity Reaction Status Date / Time soybean AdvReac Headache Verified 10/04/21 11:10 Anes History & Medical History - Anesthetic History Anesthesia Complications: reports: No previous complications - Medical History Cardiovascular: reports: None Pulmonary: reports: None Gastrointestinal: reports: None Urinary: reports: None Musculoskeletal: reports: None Endocrine/Autoimmune: reports: None Skin: reports: None Smoking Status: Never smoker History of Cancer?: Yes - Surgical History General: reports: Colonoscopy Exam General: Alert, Oriented x3 Dental: WNL Mouth Opening: Greater than 4 Fingerbreadths Mallampati classification: II Thyromental Distance: greater than 6 cm Respiratory: Lungs clear Cardiovascular: Regular rate Plan Anesthesia Type: General, Total IV Consent for Procedure(s) Verified and Reviewed: Yes Code Status: Attempt Resuscitation ASA classification: 3-Severe systemic disease Is this case an emergency?: No
[2021-10-12] MEDS ORDERED: LACTATED RINGERS 1,000 ML IV ONE ×2 (13:39→15:18)
[2021-10-12] MEDS ORDERED: BUPIVACAINE 0.25% PF 30 ML VIAL ONE (13:41)
[2021-10-12] MEDS ORDERED: LIDOCAINE MPF 2%-EPI 1:200000 20 ML VIAL ONE (13:41)
[2021-10-12] MEDS ORDERED: PROPOFOL 200 MG/20 ML VIAL IVP ONE ×2 (13:43→15:21)
[2021-10-12] MEDS ORDERED: MIDAZOLAM 2 MG/2 ML VIAL ONE (13:45)
[2021-10-12] MEDS ORDERED: fentaNYL 100 MCG/2 ML VIAL ONE (13:45)
--- NOTE | 2021-10-12 14:15 | HISTORY & PHYSICAL EXAMINATION ---
Chief Complaint - Chief Complaint Chief Complaint: breast cancer and need for chemotherapy port History of Present Illness - History Obtained From Records Reviewed: yes History obtained from: pt Exam Limitations: none - History of Present Illness HPI Comment/Other: metastatic breast cancer History - Past Medical History Cardiovascular: reports: None Respiratory: reports: None Endocrine/Autoimmune: reports: None GI: reports: None : reports: None HEENT: reports: None Psych: reports: None Musculoskeletal: reports: None Derm: reports: None MRSA Hx?: No - Past Surgical History General: reports: Colonoscopy - Family & Social History Living Situation: With spouse/s.o. - POLST Patient has POLST: No Meds/Allgy - Home Medications Home Medications: Ambulatory Orders Medication Instructions Recorded Confirmed oxyCODONE [Roxicodone] 2.5 - 5 mg PO Q4H PRN 06/12/21 10/11/21 Letrozole 2.5 mg PO DAILY 06/13/21 10/12/21 polyethylene glycoL 3350 [Miralax] 17 gm PO DAILY 06/28/21 10/12/21 Palbociclib [Ibrance] 125 mg PO DAILY 07/03/21 10/04/21 Naloxone HCl Nasal [Narcan] 4 mg INH PRN PRN MDD as directed 07/06/21 10/04/21 Sennosides/Docusate Sodium [Senna 2 tab PO QPM 07/06/21 10/12/21 Plus 8.6-50 mg Tablet] dexAMETHasone [Decadron] 2 mg PO DAILY 07/18/21 10/12/21 Alprazolam [Xanax] 1 tab PO BID PRN 10/02/21 10/12/21 Nystatin [Mycostatin] 5 ml PO BID 10/04/21 10/04/21 Amitriptyline [Elavil] 10 mg PO QPM 10/10/21 10/12/21 Hyoscyamine [Levsin] 1 tab PO BID PRN 10/10/21 10/11/21 - Allergies Allergies/Adverse Reactions: Allergies Allergy/AdvReac Type Severity Reaction Status Date / Time soybean AdvReac Headache Verified 10/04/21 11:10 Review of Systems - Constitutional Constitutional: reports: Fatigue (10 pt ros as above otherwise unremarkable) Exam - Vital Signs Reviewed Vital Signs: Yes Vital Signs: Vital Signs x48h Temp Pulse Resp BP Pulse Ox 10/12/21 13:14 36.5 C 87 16 132/86 H 98 - Physical Exam General Appearance: positive: No acute distress, Alert Eyes Bilateral: positive: PERRL, EOMI, No scleral icterus Neck: positive: No JVD Respiratory: positive: No respiratory distress, Breath sounds nml Cardiovascular: positive: Regular rate & rhythm Abdomen: positive: No distention Neurologic/Psychiatric: positive: Oriented x3 Conclusion/Plan - Problem List (1) Metastatic breast cancer Conclusion/Plan: plan port placement. parq held and consent obtained
[2021-10-12] MEDS ORDERED: BUPIVACAINE 0.25% PF 30 ML VIAL SUBQ ONE ×2 (14:55)
[2021-10-12] MEDS ORDERED: LIDOCAINE MPF 2%-EPI 1:200000 20 ML VIAL SUBQ ONE ×2 (14:55)
--- NOTE | 2021-10-12 15:14 | XRAY Report ---
PROCEDURE: OR Port-A-Cath INDICATIONS: BREAST CANCER TECHNIQUE: Intraoperative fluoroscopic images of right upper chest were obtained. COMPARISON: None. FINDINGS: Intraoperative fluoroscopic images of right upper chest shows placement of a left-sided central venou s catheter, the tip is in the region of SVC/right atrium. IMPRESSION: Fluoroscopy guidance was provided intraoperatively for left-sided Port-A-Cath placement. Reviewed by: Johnnie Burgess MD on 10/12/2021 3:12 PM PDT Approved by: Johnnie Burgess MD on 10/12/2021 3:12 PM PDT Station ID: [id number]
[2021-10-12] MEDS ORDERED: oxyCODONE 5 MG TABLET PO PRN (15:19)
--- NOTE | 2021-10-12 15:19 | OPERATIVE REPORT ---
Operative Report - General Procedure Date: 10/12/21 Planned Procedure: left subclavian power port placement Pre-Op Diagnosis: metatstatic breast cancer Procedure Performed: left subclavian vein power port placement fluoroscopic guidance Post Op Diagnosis: metastatic breast cancer - Other Other Information/Narrative: The patient was properly identified brought to the operating room and placed in supine position. Monitored anesthesia care was given as well as IV sedation. A towel roll was placed under the upper back. The patient was prepped and draped in a sterile fashion and given preoperative antibiotics. Local anesthetic was given. The left subclavian vein was easily accessed first pass with a needle. Guide wire placed and position confirmed. A subcutaneous pocket on the left upper chest was created measuring approximately 2-1/2 cm. Portacatheter tubing was then placed subcutaneous up to the venous access point. The portacatheter tubing was then easily placed with the use of a dilator peel-away sheath. The tubing was aspirated and flushed with saline. Under fluoroscopic guidance the tubing was pulled back to the junction of the atrium and the superior vena cava. The portacatheter aspirated and flushed easily assuring good position. The portacatheter was then cut to size and further assembled. The port was secured to subcutaneous tissue with 2 interrupted 4-0 Prolene sutures. The port again was aspirated and flushed now with heparin. Buried interrupted subdermal 3-0 Vicryl sutures were then placed. Skin was closed with buried interrupted and running 4-0 Monocryl subcuticular suture. Dressing was applied. The patient tolerated the procedure well was awakened and brought to recovery in good condition.
[2021-10-12] MEDS ORDERED: ceFAZolin 1 GM VIAL ONE (15:21)
--- NOTE | 2021-10-12 15:22 | ANESTHESIA POST OP EVALUATION ---
Anesthesia Post Eval - Post Anesthesia Eval Vitals: Last Vital Signs Temp 36.1 C L 10/12/21 15:15 Pulse 98 10/12/21 15:15 Resp 16 10/12/21 15:15 BP 111/67 10/12/21 15:15 Pulse Ox 100 10/12/21 15:15 CV Function Including HR & BP: Stable Pain Control: Satisfactory Nausea & Vomiting: Negative Mental Status: Baseline Respiratory Status: Airway Patent Hydration Status: Satisfactory Anesthesia Complications: None
[2021-10-12 15:37] VITALS: BP 126/84
== END 2021-10-12 12:56 | disposition home or self-care (01) ==
LOC: SDS 12:55
PROVIDERS: ATTEND Surgery
DX: C50.919 Malignant neoplasm of unspecified site of unspecified female breast (principal)
CPT/HCPCS: 36561; C1788; J7120

== ENCOUNTER 2021-10-16 13:35 | Outpatient (CLI) | payer MEDICARE ==
--- NOTE | 2021-10-16 19:09 | CONSULTATION NOTE ---
Palliative Care Follow Up - Referral Referring Provider: Dr. Noam Espinal Time of Visit: [id number] Referral setting: Home Referral Reason: ACP/Headaches/Anorexia/Metastatic breast cancer - Information Sources History/Review of Systems obtained from: Patient, Family (spouse, Ibrahima and son, Riki) Exam limitations: Clinical condition (+STM impairment) - History of Present Illness Update Brief HPI Update: This is a joe 76-year-old female who was seen in follow-up today in her home due to metastatic malignancy, headaches, anorexia, pressure ulcer and advance care planning with her spouse/DPOA Ibrahima and sonRiki present. Provider wore N95 mask. The patient has been experiencing headaches that began before attempting to transition off of dexamethasone and discontinuation of MS Contin. She had an MRI of the brain performed earlier this month that was negative for brain metastases. The headaches would be grounding in that the p atient would be unable to do activities and prefer to rest. In recent weeks after increase of dexamethasone and subsequent retapering down to 2 mg daily and implementing oxycodone 5 mg in the morning, two-point 5 in the afternoon, 5 mg in the evening the patient's headaches are not as intense as they once were. On 10/10 she initiated amitriptyline 10 mg in the evening for headaches. On last evaluation it was noted that she had a pressure ulcer to her left buttocks. Spouse has been applying a barrier cream on a daily basis and has purchased a Roho cushion. The patient denies any pain or discomfort to the site. Since last evaluation she has had a port placed to her left chest wall and tolerated this well. She continues to use her nystatin suspension twice a day. Denies any difficulty with swallowing or pain in her mouth. She does however, continue to have a lack of appetite and dexamethasone even at higher dosages did not adequately increase her appetite. Continues with protein drink supplementation and family encouraging small, frequent meals throughout the day that are high in protein and caloric content. She continues to have routine bowel movements with present bowel regimen. She has not used hyoscyamine as previously prescribed for abdominal cramps. She had a repeat occurrence with abdominal discomfort after eating ice cream only in the evenings and may have a sensitivity to dairy. She has difficulty with some short-term memory recall. For example, she does not recall appointments or when the puppy is arriving. Her son, Riki acknowledges this today and is accepting of it however, would prefer to understand more of the Y behind it. The patient herself does not perceive a lack of short-term memory. Past Medical History: Patient has a history of hyperlipidemia, left breast cancer in 2002, left breast lumpectomy a lymph with lymph node dissection in 2002, impaired glucose previously on Metformin and has not been on for many years; T3-T4 laminectomy with tumor resection as well as T2-T6 fusion 04/2021, history of iron deficiency anemia. Social History - Living Situation Living arrangement: At home Living Situation: With spouse/s.o. Support System: Patient grew up on [facility]. She has a brother whom she has been estranged from for a number of years. The patient and her spouse, Ibrahima have been for approximately 52 years. They have 1 son, Riki who resides in [place]. SonRiki has been visiting since Saturday and leaves tomorrow. THey have had a good visit and have discussed pending journey. They are getting a puppy November 01. Medications/Allergies - Medications Home Medications: Ambulatory Orders Medication Instructions Recorded Confirmed oxyCODONE [Roxicodone] 2.5 - 5 mg PO Q4H PRN 06/12/21 10/11/21 Letrozole 2.5 mg PO DAILY 06/13/21 10/12/21 polyethylene glycoL 3350 [Miralax] 17 gm PO DAILY 06/28/21 10/12/21 Palbociclib [Ibrance] 125 mg PO DAILY 07/03/21 10/04/21 Naloxone HCl Nasal [Narcan] 4 mg INH PRN PRN MDD as directed 07/06/21 10/04/21 Sennosides/Docusate Sodium [Senna 2 tab PO QPM 07/06/21 10/12/21 Plus 8.6-50 mg Tablet] dexAMETHasone [Decadron] 1 mg PO DAILY 07/18/21 10/12/21 Alprazolam [Xanax] 1 tab PO BID PRN 10/02/21 10/12/21 Amitriptyline [Elavil] 10 mg PO QPM 10/10/21 10/12/21 Hyoscyamine [Levsin] 1 tab PO BID PRN 10/10/21 10/11/21 Lidocaine/Prilocain 2.5% Cream 5 applic TOP UD #1 gm 10/13/21 [Emla 2.5% Cream] Ondansetron Odt [Zofran Odt] 4 mg TL Q6H PRN #30 tab 10/13/21 - Allergies Allergies/Adverse Reactions: Allergies Allergy/AdvReac Type Severity Reaction Status Date / Time soybean AdvReac Headache Verified 10/04/21 11:10 Review of Systems - Constitutional Constitutional: reports: Fatigue, Poor appetite. denies: Fever - Eyes Eyes: denies: Blurred vision - Ears, Nose & Throat Ears, Nose & Throat: denies: Hearing loss, Mouth lesions - Cardiovascular Cardiovascular: denies: Chest pain - Respiratory Respiratory: denies: Cough - Gastrointestinal Gastrointestinal: reports: Other (decreased appetite). denies: Abdominal pain, Constipation, Nausea - Genitourinary Genitourinary: denies: Incontinence - Musculoskeletal Musculoskeletal: reports: Stiffness. denies: Joint pain, Transfer issues - Integumentary Integumentary: reports: Other (bruising; skin breakdown left buttocks) - Neurological Neurological: reports: General weakness, Headache, Memory problems (see HPI). denies: Dizziness - Endocrine Endocrine: reports: Other (impaired fasting glucose previously on metformin "years ago"; hypercalcemia due to metastasis--getting IV hydration) - Hematologic/Lymphatic Hematologic/Lymph: reports: Bruising - All Other Systems All Other Systems: reports: Reviewed and negative (spouse supplemented) Physical Exam - Vital Signs Temperature: 36.6 C Pulse Rate: 78 O2 Saturation: 96 (on RA) Blood Pressure: 118/86 (right wrist) - Physical Exam General Appearance: positive: No acute distress, Alert, Cachetic, Other (well groomed) Eyes Bilateral: positive: Normal inspection ENT: positive: No signs of dehydration. negative: Oral lesions Neck: positive: Trachea midline, Other (thin) Cardiovascular: positive: Regular rate & rhythm, No murmur Respiratory: positive: No respiratory distress, Breath sounds nml Abdomen: positive: Non-tender, Soft, Nml bowel sounds Skin: positive: Bruising (Scattered purpura to chest wall and b/l forearms), Pressure wound (Left buttocks, decreased in size, apprx 0.5cm round without maceration surrounding woundbed or surrounding erythema) Extremities: positive: Non-tender, Full ROM, No pedal edema Neurologic/Psychiatric: positive: Oriented x3 (STM impairment noted at times), Mood/affect nml Palliative Care - POLST Patient has POLST: Yes POLST Status: DNR, Selective Treatment Pain: Pain improved (Headaches improved with introduction of amitriptyline) Anorexia: Severe (7-10) Dyspnea: Mild (1-3) Feelings of wellbeing/Perceived Quality of Life: Fair Sleep: Sleeps well Constipation: Yes, Opoid induced, Managed - Palliative Care Discussion: The patient with her spouse and son have had a lengthy discussion during their son's visit regarding the patient's status and prognosis and all are in agreement that the patient is determining what she wants and in this case she wishes to move forward with palliative therapy with Taxol. She recognizes that her condition is not curable but wishes to extend her quantity of time as well as quality. Discussed in the setting of each time she presents for chemotherapy that it is a new day for her to decide if she wishes to proceed or not for that particular day and each day is a trial. Patient was open and amenable to this. The patient does feel that it would be safe for her as best she can to move forward with having treatments and to not miss a treatment as she does not "want to give up." In the context of discussing advance care planning patient was open and amenable to having a discussion with her family to express her wishes. She was very clear that she never wishes to be a burden upon them. Based on how she feels presently she would not want to have a possibility of being connected to life support and therefore POLST completed as DN AR with selective interventions with artificial nutrition as a trial for the short-term with the goal to return to baseline. The patient has had a reduction in intensity of her headaches since introduction of amitriptyline. Given there has been more side effects versus benefits with introduction of dexamethasone will further reduce the dose to 1 mg daily with the goal to taper off. Impression and Recommendations - Palliative Care Impression: This is a joe 76-year-old female with metastatic breast cancer to the spine with history of T4 spinal compression in the setting of bony mets, persistent headaches, anorexia, and pressure ulcer to left buttocks. Given lack of improvement with dexamethasone will further reduce to 1 mg daily. Discontinue nystatin suspension as oral candidasis is resolved. Patient continues to wish to move forward with palliative chemotherapy. Palliative care to continue to build rapport, explore goals of care, provide care coordination, pain and symptom management as well as anticipatory guidance. Recommendations/Counseling Done: 1. Headaches. Longstanding history. Recent increase in intensity and persistence, mildly improved with introduction of amitriptyline 10mg at bedtime and will continue. Advised amitriptyline will need to be tappered to discontinue if needed in the future. MRI of brain performed 10/02/2021 was negative for metastases. No explanation noted on MRI for headaches. 2. Cognitive impairment with short-term memory. Patient will repeat questions and not able to retain new information at times in the setting of hypercalcemia and headaches. Brain MRI negative for metastases on 10/02. Continues to have IV hydration. At the present time, require support from her spouse for complex decision making but able to make her desires known and expressed. 3. Pressure ulcer stage II to left buttocks. In the setting of protein calorie malnutrition with albumin 2.7 on 10/02/21. Improved with size reduction. Continue durable barrier cream applied to the site on the buttocks at least once daily and then as needed until healed. Continue Roho cushion when out of bed. Discussed monitoring for signs and symptoms of infection and to call with signs. 4. Pain of neoplastic origin. Improved. Continue oxycodone 5 mg in the morning, oxycodone 2.5 mg in the afternoon, oxycodone 5 mg in the evening. Continue breakthrough oxycodone as prescribed. Reduce dexamethasone to 1mg in the morning. Goal will be to slowly reduce oxycodone and dexamethasone as the patient's headaches improved and all parties are in agreement with plan. 5. Abdominal pain. Intermittent. Questionable lactose intolerance. Discussed trial of lactaid OTC with dairy products (ice cream) to see if reduction in symptoms. 6. Oral candidiasis. Resolved with dose reduction of dexamethasone. Discontinue nystatin twice daily. 7. Advanced care planning. Patient is aware of poor prognosis and continues to wish to move forward with Taxol infusions. Completed POLST today with spouse/DPOA and son as DNAR/DNI selective interventions and trial of short term artificial nutrition by tube if can return to prior functional status. Patient is very clear she does not want to be a burden on her family and family is supportive of patient's wishes and expressing her desires to them. Total time spent 60 minutes with greater than 50% of the spent in counseling and coordination of care with the patient, spouse and son; examination of patient; review of plan of care; pain and symptom management with review of medications, purpose, and side effects of new medications initiated as well as anticipatory guidance and advanced care planning and review of POLST. Disclaimer: The chart note was formulated using voice recognition technology and unfortunately sound alike errors may occur.
== END 2021-10-16 13:36 | disposition home or self-care (01) ==
LOC: PC 13:35
PROVIDERS: ATTEND Nurse Practitioner Family
DX: Z51.5 Encounter for palliative care (principal); R51.9 Headache, unspecified; R41.89 Other symptoms and signs involving cognitive functions and awareness; L89.322 Pressure ulcer of left buttock, stage 2; G89.3 Neoplasm related pain (acute) (chronic); C50.919 Malignant neoplasm of unspecified site of unspecified female breast; C79.51 Secondary malignant neoplasm of bone; R10.9 Unspecified abdominal pain; B37.0 Candidal stomatitis; Z66 Do not resuscitate
CPT/HCPCS: 99350

== ENCOUNTER 2021-10-30 11:37 | Outpatient (CLI) | payer MEDICARE ==
--- NOTE | 2021-10-30 15:19 | CONSULTATION NOTE ---
Palliative Care Follow Up - Referral Referring Provider: Dr. Noam Espinal Time of Visit: Intiated 1300 35 minutes Referral setting: [facility] Referral Reason: Headaches/Anorexia/Metastatic breast Ca - Information Sources Records reviewed: Previous records reviewed History/Review of Systems obtained from: Patient, Family (spouse/DPOA, Bill) Exam limitations: Clinical condition (+STM impairment) - History of Present Illness Update Brief HPI Update: This is a joe 76-year-old female who was seen in follow-up today at [facility] due to metastatic malignancy, headaches, and anorexia with her spouse/DPOA Bill present. The patient has been experiencing headaches that began before attempting to transition off of dexamethasone and discontinuation of MS Contin. She had an MRI of the brain performed in early September 2021 that was negative for brain metastases. The patient would complain of headaches that would be grounding and prevent her from doing activities and prefer to rest. Oxycodone was reinitiated and continues at 5 mg in the morning, 2.5 mg in the afternoon, 5 mg in the evening. She was also initiated on amitriptyline 10 mg in the evening for headaches on 10/10. Recently, the patient and spouse report a reduction in headaches. The patient has not been taking Tylenol as frequently. The end of last week, she was transition to dexamethasone 1mg on Saturday, Saturday, Saturday, and Saturday and 0.5 mg on Saturday. The patient has been on Megace for approximately 1 week and yesterday, she finished her meal which was the first time in some time. She did however have to take Imodium on Saturday due to multiple loose stools. She has had no bowel movement since Saturday and her spouse held her MiraLAX and senna plus due to increased defecation. She denies any abdominal pain. She has not utilized any antispasmodic medication for her stomach. She continues to be fatigued. But otherwise has been in good spirits. She is looking forward to obtainment of a new puppy next week. Past Medical History: Patient has a history of hyperlipidemia, left breast cancer in 2002, left breast lumpectomy a lymph with lymph node dissection in 2002, impaired glucose previously on Metformin and has not been on for many years; T3-T4 laminectomy with tumor resection as well as T2-T6 fusion 04/2021, history of iron deficiency anemia. Social History - Living Situation Living arrangement: At home Living Situation: With spouse/s.o. Support System: Patient grew up on [facility]. She has a brother whom she has been estranged from for a number of years. The patient and her spouse, Ibrahima have been for approximately 52 years. They have 1 son, Riki who resides in [place]. Patient and spouse went for walks on the weekends. She is greatly looking forward to a new puppy in the home. Medications/Allergies - Medications Home Medications: Ambulatory Orders Medication Instructions Recorded Confirmed oxyCODONE [Roxicodone] 2.5 - 5 mg PO Q4H PRN 06/12/21 10/11/21 Letrozole 2.5 mg PO DAILY 06/13/21 10/12/21 polyethylene glycoL 3350 [Miralax] 17 gm PO DAILY 06/28/21 10/12/21 Naloxone HCl Nasal [Narcan] 4 mg INH PRN PRN MDD as directed 07/06/21 10/04/21 Sennosides/Docusate Sodium [Senna 2 tab PO QPM 07/06/21 10/12/21 Plus 8.6-50 mg Tablet] dexAMETHasone [Decadron] PO DAILY 07/18/21 10/12/21 Alprazolam [Xanax] 1 tab PO BID PRN 10/02/21 10/12/21 Amitriptyline [Elavil] 10 mg PO QPM 10/10/21 10/12/21 Hyoscyamine [Levsin] 1 tab PO BID PRN 10/10/21 10/11/21 Lidocaine/Prilocain 2.5% Cream 5 applic TOP UD #1 gm 10/13/21 [Emla 2.5% Cream] Prochlorperazine Maleate 10 mg PO Q4HR PRN 10/17/21 10/17/21 [Compazine] Megestrol Acetate 40 mg PO BID 10/23/21 10/23/21 - Allergies Allergies/Adverse Reactions: Allergies Allergy/AdvReac Type Severity Reaction Status Date / Time soybean AdvReac Headache Verified 10/04/21 11:10 Review of Systems - Constitutional Constitutional: reports: Fatigue, Weight loss (weight 46.1kg 10/30/21). denies: Fever - Eyes Eyes: denies: Blurred vision - Ears, Nose & Throat Ears, Nose & Throat: denies: Hearing loss - Cardiovascular Cardiovascular: denies: Chest pain, Edema (using compression socks and has had reduction in edema to feet) - Respiratory Respiratory: denies: Wheezing - Gastrointestinal Gastrointestinal: reports: Diarrhea (see HPI, one episode on Saturday and took imodiu), Other (overall decreased appetite). denies: Abdominal pain, Constipation, Nausea - Musculoskeletal Musculoskeletal: reports: Stiffness. denies: Joint pain, Transfer issues - Integumentary Integumentary: reports: Other (bruising) - Neurological Neurological: reports: General weakness, Headache (improved, see HPI), Memory problems. denies: Dizziness - Endocrine Endocrine: reports: Other (impaired fasting glucose previously on metformin "years ago"; hypercalcemia due to metastasis--getting IV hydration) - Hematologic/Lymphatic Hematologic/Lymph: reports: Bruising - All Other Systems All Other Systems: reports: Reviewed and negative (spouse supplemented) Physical Exam - Physical Exam General Appearance: positive: No acute distress, Alert, Cachetic, Other (well groomed) Eyes Bilateral: positive: Normal inspection ENT: positive: No signs of dehydration Neck: positive: Trachea midline, Other (thin) Cardiovascular: positive: Regular rate & rhythm Respiratory: positive: No respiratory distress, Breath sounds nml Abdomen: positive: Non-tender, Soft, Nml bowel sounds Skin: positive: Bruising (Scattered purpura to chest wall and b/l forearms with none to shins), Pressure wound (history of left buttocks pressure ulcer--not visualized today) Extremities: positive: No pedal edema Neurologic/Psychiatric: positive: Oriented x3 (STM impairment noted at times), Mood/affect nml Palliative Care - POLST Patient has POLST: Yes POLST Status: DNR, Selective Treatment Pain: Pain improved (headaches improved with introduction of amitriptyline) Anorexia: Severe (7-10) Dyspnea: None Feelings of wellbeing/Perceived Quality of Life: Fair Sleep: Sleeps well (minimal talking in sleep per spouse) - Palliative Care Discussion: The patient has had a reduction in the intensity of her headaches since introduction of amitriptyline and will continue with this moving forward. She has tolerated dose reduction of dexamethasone and will further reduce by 10% again this week with the goal to eventually taper and discontinue. Optimistic, that the purpura noted to the patient's upper extremities and chest wall will begin to diminish when she is no longer on dexamethasone. Discussed with patient and spouse expectations regarding effectiveness of Megace for appetite stimulation and weight gain. Discussed that if after several weeks no noted benefit then would have a discussion regarding discontinuation and all parties in agreement. 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 Given improvement will further reduce dexamethasone by 10% as noted below. Goal remains to taper and discontinue dexamethasone. Recent improvement with appetite with addition of Megace. Palliative care to continue to build rapport, explore goals of care, provide care coordination, pain and symptom management as well as anticipatory guidance. Recommendations/Counseling Done: 1. Headaches. Longstanding history. Continues to gradually improve with length of time on amitriptyline 10 mg at bedtime. MRI of brain performed 10/02/2021 was negative for metastases of the brain. No other explanations were noted on MRI for headaches. Continue amitriptyline moving forward and aware will need to taper to discontinue. 2. Constipation. Recent episode of diarrhea. Advised to resume MiraLAX 1 cap daily and senna +2 tabs in the evening to prevent constipation. 3. Pain of neoplastic origin. Stable. Continue oxycodone 5 mg in the morning, oxycodone 2.5 mg in the afternoon, oxycodone 5 mg in the evening. Continue breakthrough oxycodone as prescribed. Consider dose reduction of oxycodone on desk assessment. Reduce dexamethasone to 0.5 mg on Saturday and Saturday and 1 mg all other days. Continue to reduce by 10% weekly given patient's difficulty with discontinuation in the past with her headaches. All parties in agreement and continue to monitor. 4. Anorexia. Patient continues with poor oral intake however, last evening reported up to after being on Megace for a week. Continue to encourage protein drink supplementation and small frequent meals with protein for calories. We will continue to monitor benefit of Megace and if no noted improvement will discuss discontinuation in the future. 5. Metastatic breast cancer to the spine with T4 spinal cord compression status post T4 compression and radiation therapy 04/2021. Treatment is palliative with intent. Has a history of left breast cancer originally diagnosed in 2002. Followed by oncology and neurosurgery. 35 minutes with review of labs, pathology, oncology note, [id number] with patient and spouse for counseling on pain and symptom management, psychosocial support, anticipatory guidance and advanced care planning. Disclaimer: The chart note was formulated using voice recognition technology and unfortunately sound alike errors may occur.
== END 2021-10-30 11:38 | disposition home or self-care (01) ==
LOC: PC 11:37
PROVIDERS: ATTEND Nurse Practitioner Family
DX: Z51.5 Encounter for palliative care (principal); R51.9 Headache, unspecified; C79.51 Secondary malignant neoplasm of bone; G89.3 Neoplasm related pain (acute) (chronic); R63.0 Anorexia; K59.00 Constipation, unspecified; R19.7 Diarrhea, unspecified; R53.83 Other fatigue; R63.4 Abnormal weight loss; D69.2 Other nonthrombocytopenic purpura; Z85.3 Personal history of malignant neoplasm of breast; Z79.899 Other long term (current) drug therapy; Z79.52 Long term (current) use of systemic steroids; Z66 Do not resuscitate
CPT/HCPCS: 99214

== ENCOUNTER 2021-11-14 15:05 | Outpatient (CLI) | payer MEDICARE ==
--- NOTE | 2021-11-14 16:14 | CONSULTATION NOTE ---
Palliative Care Follow Up - Referral Referring Provider: Dr. Noam Espinal Time of Visit: [id number] Referral setting: Home Referral Reason: Pain of neoplasm/Headaches/Debility/Metastatic Breast Ca - Information Sources Records reviewed: Previous records reviewed History/Review of Systems obtained from: Patient, Family (spouse/DPOA Bill) Exam limitations: Clinical condition (STM impairment) - History of Present Illness Update Brief HPI Update: This is a 76-year-old female who is seen in follow-up today due to metastatic malignancy, headaches, anorexia, and pain in neoplastic origin with her spouse/DPOA Bill present. Patient began experiencing headaches that began before attempting to transition off of dexamethasone and discontinuation of MS Contin. She had an MRI of the brain performed in early September 2021 that was negative for brain metastases. She has had great reduction in her headaches since initiation of amitriptyline 10 mg in the evening on 10/10. On 10/09 her oxycodone was reduced to 5 mg in the morning, two-point 5 in the afternoon, two-point 5 in the evening with a goal to slowly and gradually discontinue. Spouse reported separately that patient has been reporting some increased intermittent pain. During evaluation today, patient is expressing that this is occurring to her right scapula which has been present for. Therefore, will not further taper off of Oxycodone. Continue on a 10% weekly dose reduction of dexamethasone until discontinuation. Has tolerated this well. Patient was started on Megace in early October 2021 however, patient and spouse do not appreciate any increase in the patient's oral intake. She continues to be offered a protein drink per day but the color of the taste is not appealing. Continues with minimal oral intake. Losing approximately 2 pounds per week. Bowel movements are regular. She is reporting some increased shortness of breath with activity. 1 in particular is when she was making up the bed. This is not all the time and intermittent. No reported cough. Patient sustained a skin tear to her right elbow and does not recall an incident that caused this. No discharge or surrounding erythema. Past Medical History: Patient has a history of hyperlipidemia, left breast cancer in 2002, left breast lumpectomy a lymph with lymph node dissection in 2002, impaired glucose previously on Metformin and has not been on for many years; T3-T4 laminectomy with tumor resection as well as T2-T6 fusion 04/2021, history of iron deficiency anemia. Social History - Living Situation Living arrangement: At home Living Situation: With spouse/s.o. Support System: Patient grew up on [facility]. She has a brother whom she has been estranged from for a number of years. The patient and her spouse, Ibrahima have been for approximately 52 years. They have 1 son, Riki who resides in [place]. JUst received a puppy, [place] on 11/10 that has been a great addition to the home with her demeanor. Medications/Allergies - Medications Home Medications: Ambulatory Orders Medication Instructions Recorded Confirmed oxyCODONE [Roxicodone] 2.5 - 5 mg PO Q4H PRN 06/12/21 10/11/21 polyethylene glycoL 3350 [Miralax] 17 gm PO DAILY 06/28/21 10/12/21 Naloxone HCl Nasal [Narcan] 4 mg INH PRN PRN MDD as directed 07/06/21 10/04/21 Sennosides/Docusate Sodium [Senna 2 tab PO QPM 07/06/21 10/12/21 Plus 8.6-50 mg Tablet] dexAMETHasone [Decadron] PO DAILY MDD 1mg dailyexcept 0.5mg 07/18/21 10/12/21 M,W,F,Tu Alprazolam [Xanax] 1 tab PO BID PRN 10/02/21 10/12/21 Amitriptyline [Elavil] 10 mg PO QPM 10/10/21 10/12/21 Hyoscyamine [Levsin] 1 tab PO BID PRN 10/10/21 10/11/21 Lidocaine/Prilocain 2.5% Cream 5 applic TOP UD #1 gm 10/13/21 [Emla 2.5% Cream] Prochlorperazine Maleate 10 mg PO Q4HR PRN 10/17/21 10/17/21 [Compazine] Megestrol Acetate 400 mg PO DAILY 10/23/21 10/23/21 oxyCODONE [Roxicodone] 11/09/21 - Allergies Allergies/Adverse Reactions: Allergies Allergy/AdvReac Type Severity Reaction Status Date / Time soybean AdvReac Headache Verified 10/04/21 11:10 Review of Systems - Constitutional Constitutional: reports: Fatigue, Poor appetite, Weight loss. denies: Fever - Ears, Nose & Throat Ears, Nose & Throat: denies: Hearing loss - Cardiovascular Cardiovascular: reports: Exertional dyspnea. denies: Chest pain, Edema (using compression socks and has had reduction in edema to feet) - Respiratory Respiratory: denies: Cough, Pleuritic pain - Gastrointestinal Gastrointestinal: reports: Other (Poor oral intake, see HPI, s/p nutritional consult 11/07). denies: Abdominal pain, Constipation (controlled, see HPI), Vomiting - Genitourinary Genitourinary: denies: Dysuria - Musculoskeletal Musculoskeletal: reports: Stiffness, Assistive devices (has a walker but does not consistently use). denies: Joint pain, Transfer issues - Integumentary Integumentary: reports: Other (bruising, skin tear right elbow) - Neurological Neurological: reports: General weakness, Headache (improved, see HPI), Memory problems. denies: Dizziness - Psychiatric Psychiatric: denies: Other (no longer with mood swings with amitriptyline) - Endocrine Endocrine: reports: Other (impaired fasting glucose previously on metformin "years ago"; hypercalcemia due to metastasis--getting IV hydration) - Hematologic/Lymphatic Hematologic/Lymph: reports: Bruising - All Other Systems All Other Systems: reports: Reviewed and negative (spouse supplemented) Physical Exam - Vital Signs Temperature: 36.6 C Pulse Rate: 88 O2 Saturation: 96 (on RA) Blood Pressure: 125/81 - Physical Exam General Appearance: positive: No acute distress, Alert, Cachetic Eyes Bilateral: positive: Normal inspection ENT: positive: No signs of dehydration, Other (+b/l temporal wasting) Neck: positive: Trachea midline, Other (thin) Cardiovascular: positive: Regular rate & rhythm, No murmur Respiratory: positive: No respiratory distress, Breath sounds nml, Other (Pulse ox 92% on RA after ambulation). negative: Diminished in bases Abdomen: positive: Non-tender, Soft, Nml bowel sounds Skin: positive: Pallor, Other (Skin tear to right elbow, cleansed and applied Mepilx ONe to site no discharge, erythema or s/s of infection; scattered purpura to chest wall and b/l forearms.) Extremities: positive: Non-tender (to palpation to spine, b/l hips, and to right scapula), Full ROM, No pedal edema Neurologic/Psychiatric: positive: Oriented x3 (short term memory impairment), Mood/affect nml, Weakness (BLE 4-/5) Palliative Care - POLST Patient has POLST: Yes POLST Status: DNR, Selective Treatment Pain: Pain improved - Palliative Care Discussion: Patient has had significant reduction in her headaches and we will continue to further dose reduce dexamethasone by 10% again this week with the goal to eventually taper and discontinue. The use of dexamethasone is contributing to increased tenderness to the patient's skin and increasing her risk for skin tears. Skin care to her right elbow had Mepitel [address] and to leave on for 1 week and monitor for signs and symptoms of infection. Given reports of increased intermittent pain therefore, we will not further dose reduce oxycodone at this time we will continue with the present dosage. The patient and spouse do not perceive any effectiveness regarding Megace for appetite stimulation and weight gain and reviewed cumulative effect of Taxol. Therefore, we will do a trial dose reduction of Megace from twice daily to once daily dosing and see if indeed, Megace was contributing to any appetite stimulation and if so would then resume at twice daily dosing. Patient is aware and articulated well that the only individual that knows the path is God. She relies on her makenzie to get through at this time. Things have come full [place] with her having some hair loss and this is triggering for her regarding reflection from her previous time with chemotherapy approximately 20 years ago. It is something that she is moving through and going through the motions. She is not ready to quit doing chemotherapy at this time and continues to move forward but recognizes at any point that she wishes to discontinue chemotherapy she will have the support of all parties of her team. This is the first time that her spouse shares that she is reflective in sharing this. 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 We will further dose reduce dexamethasone by 10% as noted below. Skin tear to right elbow and dressing applied today. Goal remains to taper and discontinue dexamethasone. We will also dose reduce Megace as no noted improvement with appetite stimulation. Palliative care to continue to build rapport, explore goals of care, provide care coordination, pain and symptom management as well as anticipatory guidance. Recommendations/Counseling Done: 1. Skin tear, right elbow. Fragile skin due to age, dexamethasone long-term use, and chemotherapy. Site cleansed and Mepitel 1 applied to site and advised to keep on for 7 days. Advised patient and spouse to monitor for signs and symptoms of infection and to contact palliative care if this occurs with understanding verbalized. 2. Headaches. Longstanding history. Greatly improved. Continue amitriptyline 10 mg at bedtime. MRI brain performed 10/03/2019 was negative for metastases of the brain. decrease dexamethasone to 0.5 mg on Saturday, Saturday, , and Saturday. Continue 1 mg on Saturday, Saturday, and Saturday. Continue dose reduction of 10 %/week with goal to discontinue. Continue to monitor.. 3. Anorexia in the setting of metastatic breast cancer. Patient continues with poor oral intake and no noted improvement with addition of Megace. Reduce Megace to 400 mg once daily and continue to monitor if any noted benefit of twice daily dosing. If continues without noted benefit then discontinue the future as the patient prefers less medication if at all possible. Encouraged to continue to offer small frequent meals throughout the day that are high in protein. 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 Encouraged intake of at least 1 protein drink per day. 4. Dyspnea on exertion. Likely multifactorial no evidence of pleural effusion on examination. Pulse oximetry remains above 90% after ambulation. Likely due to deconditioning. Advised to patient activity and to take frequent breaks. Also introduced the role of a rolling walker that has a seat if needed for brakes however, patient is not open to this at the present time. 5. Pain of neoplastic origin. Intermittent. Now reporting to right scapula which was previously present and resolved now returned. Again, intermittent. Continue oxycodone 5 mg in the morning, oxycodone 2.5 mg in the afternoon, oxycodone 2.5 mg in the evening. Continue breakthrough oxycodone as prescribed. She above details for further dose reduction of Dexamethasone is significantly improved. 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 Treatment is palliative with intent. Has a history of left breast cancer originally diagnosed in 2002. Presently on palliative Taxol weekly. Recent dose reduction by 15% of Taxol due to severe fatigue. Continue be followed by oncology. Total time spent 50 minutes with greater than 50% of this time counseling coronation care with the patient and spouse; examination of patient; ambulation with pulse oximeter; skin care; medication adjustments; pain and symptom management as well as anticipatory guidance. Disclaimer: The chart note was formulated using voice recognition technology and unfortunately sound alike errors may occur.
== END 2021-11-14 15:06 | disposition home or self-care (01) ==
LOC: PC 15:05
PROVIDERS: ATTEND Nurse Practitioner Family
DX: Z51.5 Encounter for palliative care (principal); G89.3 Neoplasm related pain (acute) (chronic); R51.9 Headache, unspecified; R63.4 Abnormal weight loss; R63.0 Anorexia; R53.1 Weakness; R06.09 Other forms of dyspnea; R23.8 Other skin changes; C79.51 Secondary malignant neoplasm of bone; Z85.3 Personal history of malignant neoplasm of breast; Z79.891 Long term (current) use of opiate analgesic; Z79.899 Other long term (current) drug therapy; Z92.3 Personal history of irradiation; Z66 Do not resuscitate
CPT/HCPCS: 99349

== ENCOUNTER 2021-11-21 15:05 | Outpatient (CLI) | payer MEDICARE ==
--- NOTE | 2021-11-21 16:47 | CONSULTATION NOTE ---
Palliative Care Follow Up - Referral Referring Provider: Dr. Noam Espinal Time of Visit: [id number] Referral setting: Home Referral Reason: Fatigue/Change in condition/Metastatic breast Ca - Information Sources Records reviewed: Previous records reviewed History/Review of Systems obtained from: Patient, Family (spouse/DPOA) Exam limitations: Clinical condition (STM impairment) - History of Present Illness Update Brief HPI Update: This is a 76-year-old female who is seen in follow-up today due to metastatic ma lignancy, change in condition headaches, anorexia, and pain in neoplastic origin with her spouse/DPOA Bill present. Provider wore N95 mask. Patient has been experiencing increased fatigue per spouse report and yesterday opted to not come in for her Taxol therapy and had it cancelled. She has been on Taxol since 10/23/21. Due to fatigue her dose was reduced by 15% but spouse continues to report patient sleeping much of the day. Patient herself reports that she is "okay" and denies increased fatigue. Spouse reports that she will fall asleep in her recliner extremely easily. She continues to not be consuming much in the way of food. She has not been drinking her protein shakes despite recommendation for one per day. Patient began experiencing headaches that began before attempting to transition off of dexamethasone and discontinuation of MS Contin. She had an MRI of the brain performed in early September 2021 that was negative for brain metastases. She has had great reduction in her headaches since initiation of amitriptyline 10 mg in the evening on 10/10. On 10/09 her oxycodone was reduced to 5 mg in the morning, two-point 5 in the afternoon, two-point 5 in the evening with a goal to slowly and gradually discontinue. Spouse was previously reporting increased pain most specifically to the patient's right scapula and therefore she did not have a dose reduction in her oxycodone on last evaluation. She has been complaining less regarding her headaches that she has had "since a child" and spouse supports that she has had last discomfort in pain overall. She continues on a dose reduction of dexamethasone by 10% weekly. Last week Megace was reduced by half but there has been not appreciative difference with or without the Megace for the patient's appetitie and she would prefer to be on less medication if possible. She sustained a skin tear last week to her right elbow and this has developed scab formation and no longer has Mepitel dressing intact. Last bowel movement was 2.5 days ago. Denies nausea, vomiting, bloating or abdominal discomfort as well as hematochezia. She reports feeling LANDA and dizziness with standing for long periods of time. This has remained unchanged. No cough or SOB. Spouse denies any respiratory symptoms. Past Medical History: Patient has a history of hyperlipidemia, left breast cancer in 2002, left breast lumpectomy a lymph with lymph node dissection in 2002, impaired glucose previously on Metformin and has not been on for many years; T3-T4 laminectomy with tumor resection as well as T2-T6 fusion 04/2021, history of iron deficiency anemia. Social History - Living Situation Living arrangement: At home Living Situation: With spouse/s.o. Support System: Patient grew up on [facility]. She has a brother whom she has been estranged from for a number of years. The patient and her spouse, Ibrahima have been for approximately 52 years. They have 1 son, Riki who resides in [place]. No longer taking walks outside with her spouse with use of her rollator due to fatigue. Continues to enjoy the new puppy, Kennedy that she and her spouse obtained on 11/10. SonRiki plans on scheduling a visit soon. Medications/Allergies - Medications Home Medications: Ambulatory Orders Medication Instructions Recorded Confirmed oxyCODONE [Roxicodone] 2.5 - 5 mg PO Q4H PRN 06/12/21 10/11/21 polyethylene glycoL 3350 [Miralax] 17 gm PO DAILY 06/28/21 10/12/21 Naloxone HCl Nasal [Narcan] 4 mg INH PRN PRN MDD as directed 07/06/21 10/04/21 Sennosides/Docusate Sodium [Senna 2 tab PO QPM 07/06/21 10/12/21 Plus 8.6-50 mg Tablet] dexAMETHasone [Decadron] PO DAILY MDD 0.5mg except 0.5mg on 07/18/21 10/12/21 Moreira&Tu Alprazolam [Xanax] 1 tab PO BID PRN 10/02/21 10/12/21 Amitriptyline [Elavil] 10 mg PO QPM 10/10/21 10/12/21 Hyoscyamine [Levsin] 1 tab PO BID PRN 10/10/21 10/11/21 Lidocaine/Prilocain 2.5% Cream 5 applic TOP UD #1 gm 10/13/21 [Emla 2.5% Cream] Prochlorperazine Maleate 10 mg PO Q4HR PRN 10/17/21 10/17/21 [Compazine] oxyCODONE [Roxicodone] 11/09/21 - Allergies Allergies/Adverse Reactions: Allergies Allergy/AdvReac Type Severity Reaction Status Date / Time soybean AdvReac Headache Verified 10/04/21 11:10 Review of Systems - Constitutional Constitutional: reports: Fatigue (spokes reports patient is sleeping the entire day and will be more alert around 6pm before going back to sleep again.), Poor appetite (see HPI), Weight loss. denies: Fever - Eyes Eyes: denies: Blurred vision - Ears, Nose & Throat Ears, Nose & Throat: denies: Hearing loss, Mouth lesions - Cardiovascular Cardiovascular: reports: Exertional dyspnea, Decr. exercise tolerance. denies: Chest pain, Edema (noted trace edema to feet and began restarting compression socks again) - Respiratory Respiratory: reports: SOB with exertion. denies: Cough, Wheezing - Gastrointestinal Gastrointestinal: reports: Constipation (see HPI), Other (Poor oral intake, see HPI, s/p nutritional consult 11/07). denies: Abdominal pain, Abdominal distention, Rectal bleeding, Nausea, Vomiting - Genitourinary Genitourinary: denies: Dysuria - Musculoskeletal Musculoskeletal: reports: Assistive devices (has a walker but does not consistently use). denies: Joint pain, Transfer issues - Integumentary Integumentary: reports: Other (resolving skin tear right elbow without s/s of infection; bruising) - Neurological Neurological: reports: General weakness, Headache (improved, see HPI), Dizziness (with standing for short period of time), Memory problems - Psychiatric Psychiatric: denies: Other (no longer with mood swings with amitriptyline) - Endocrine Endocrine: reports: Other (impaired fasting glucose previously on metformin "years ago"; hypercalcemia due to metastasis--getting IV hydration) - Hematologic/Lymphatic Hematologic/Lymph: reports: Bruising - All Other Systems All Other Systems: reports: Reviewed and negative (spouse supplemented) Physical Exam - Vital Signs Temperature: 36.9 C Pulse Rate: 121 O2 Saturation: 95 (on RA) Blood Pressure: 96/60 (right arm sitting) - Physical Exam General Appearance: positive: No acute distress, Alert, Cachetic Eyes Bilateral: positive: Normal inspection ENT: positive: No signs of dehydration, Other (+b/l temporal wasting) Neck: positive: Trachea midline, Other (thin) Cardiovascular: positive: Tachycardia Respiratory: positive: No respiratory distress, Breath sounds nml. negative: Rales Abdomen: positive: Non-tender, Soft, Nml bowel sounds Skin: positive: Pallor, Other (Skin tear to right elbow with scab formation no discharge or erythema; scattered purpura to chest wall and b/l forearms.) Extremities: positive: Full ROM, No pedal edema Neurologic/Psychiatric: positive: Oriented x3 (short term memory impairment), Mood/affect nml, Weakness Comments/Other: right arm standing 86/58 Palliative Care - POLST Patient has POLST: Yes POLST Status: DNR, Selective Treatment Pain: No pain Anorexia: Severe (7-10), Weight loss Feelings of wellbeing/Perceived Quality of Life: Good Sleep: Sleeps well Constipation: Yes, Opoid induced, Managed Performance Status: Remains ambulatory but unable to preform simple tasks such as making the bed without becoming short of breath and fatigued as well as for standing for long periods of time. No falls. Poor oral intake. - Palliative Care Discussion: Patient presents with high symptom burden related to disease advancement as well as poor oral intake including severe orthostatic hypotension that she is symptomatic from and severe fatigue. The patient herself does not believe that she is doing poorly and feels like she is "doing okay." Her spouse perceives a continued decline and this week the patient opted to not have Taxol treatment and opted to rest. When introduced today that the patient has the option to discontinue Taxol if it is impacting her quality of life she declines and wishes to proceed forward. Introduced transitioning care to hospice services in the future if there is a point when either she no longer wishes to proceed as burden of infusions outweigh benefit vs given disease progression may no longer have an option. At this time, patient wishes to continue to have infusions as long as she is able. At this time, she would not be open to hospice services until it was no longer an option. Discussed possibility of an acute event with the patient's spouse at home and review showing POLST to EMS service and provided supportive listening to both patient and spouse. Given the patient is extremely symptomatic with severe orthostatic hypotension request that patient be evaluated for anemia related to chemotherapy as well as receive IV hydration tomorrow and patient and spouse are open to present to [facility] for evalaution and treatment. Results - Lab Results Lab results reviewed: Yes Lab and Imaging Results: 11/07/21 Hg 8.9 HCT 27.5% Impression and Recommendations - Palliative Care Impression: This is a joe 76 year old female with metastatic breast cancer with high symptom burden of anorexia, weight loss, fatigue and orthostatic hypotension. She opted to not have Taxol this week due to her fatigue and resume next week. She is severely symptomatic with orthostatic hypotension and therefore will request IV hydration on 11/22/21 as well as labwork obtainment as it has been 2 weeks since last evaluation. Given reported improvement of pain with reduce oxycodone to 2.5mg in AM, 2.5mg in afternoon and continue 5mg at bedtime. As headaches continue to be controlled with further reduce dexamethasone by 10% as outlined below. Also discontinue megace as no improvement of appetite was noted with medication after trial. Palliative care will continue to provide care coordination, symptom management and anticipatory guidance. Recommendations/Counseling Done: 1. Severely orthostatic hypotension in the setting of chemotherapy and poor oral intake. Blood pressure sitting 95/60 and standing 86/58 that the patient found difficult to hold position. Given symptoms request obtainment of CBC with diff and hold pink tube given patient has had trending down H & H if anemia is contributing. WIll also evaluate electrolytes with BMP. Request 1L of NS be infused over 3 hours at [facility] and coordinated with caregiver FABIANA Berry and FABIANA Godoy for scheduling at 830AM on 11/22/21. 2. Fatigue. On no oral hypertensive medications. Poor oral intake, severe orthostatic hypotension and chemotherapy contributing. Given pain is controlled will further dose reduce oxycodone if this could be contributing factor to oxycodone 2.5mg in AM, 2.5mg in afternoon and 5mg in the evening. 3.Skin tear, right elbow. Fragile skin due to age, dexamethasone long-term use, and chemotherapy. Scab formation without evidence of infection, almost resolved. Aware to monitor for s/s of infection and to contact palliative care with changes. 4 Headaches. Longstanding history. Greatly improved. Continue amitriptyline 10 mg at bedtime. MRI brain performed 10/03/2019 was negative for metastases of the brain. decrease dexamethasone to 0.5 mg on Saturday, Saturday, , Saturday and Saturday. Continue 1 mg on Saturday and Saturday. Continue dose reduction of 10 %/week with goal to discontinue based on patient's tolerance and response. Continue to monitor.. 3. Anorexia in the setting of metastatic breast cancer. Patient continues with poor oral intake and no noted improvement with addition of Megace and after trial reduction. Reduce Megace to 400 mg once daily and continue to monitor if any noted benefit of twice daily dosing. If continues without noted benefit then discontinue the future as the patient prefers less medication if at all p ossible. Encouraged to continue to offer small frequent meals throughout the day that are high in protein. Status post oil agent at [facility] on 11/07. Encouraged intake of at least 1 protein drink per day. 4. Dyspnea on exertion. Likely multifactorial no evidence of pleural effusion on examination. Pulse oximetry remains above 90% after ambulation. Likely due to deconditioning. Advised to patient activity and to take frequent breaks. Also introduced the role of a rolling walker that has a seat if needed for brakes however, patient is not open to this at the present time. 5. Pain of neoplastic origin. Intermittent. Now reporting to right scapula which was previously present and resolved now returned. Again, intermittent. Continue oxycodone 5 mg in the morning, oxycodone 2.5 mg in the afternoon, oxycodone 2.5 mg in the evening. Continue breakthrough oxycodone as prescribed. She above details for further dose reduction of Dexamethasone is significantly improved. 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 Treatment is palliative with intent. Has a history of left breast cancer originally diagnosed in 2002. Presently on palliative Taxol weekly. Recent dose reduction by 15% of Taxol due to severe fatigue. Continue be followed by oncology. Total time spent 55 minutes with greater than 50% of the spent in counseling and coordination of care with the patient and spouse; examination of patient; anticipatory guidance; pathophysiology of hypotension and relation to presentation symptoms; supportive listening. Contacted oncology PA, Dominique Brasher updated regarding discussion and plan of care. Disclaimer: The chart note was formulated using voice recognition technology and unfortunately sound alike errors may occur.
== END 2021-11-21 15:06 | disposition home or self-care (01) ==
LOC: PC 15:05
PROVIDERS: ATTEND Nurse Practitioner Family
DX: Z51.5 Encounter for palliative care (principal); G89.3 Neoplasm related pain (acute) (chronic); C50.919 Malignant neoplasm of unspecified site of unspecified female breast; C79.51 Secondary malignant neoplasm of bone; R53.83 Other fatigue; R51.9 Headache, unspecified; R63.0 Anorexia; Z66 Do not resuscitate; I95.2 Hypotension due to drugs; T45.1X5A Adverse effect of antineoplastic and immunosuppressive drugs, initial encounter; I95.89 Other hypotension; R06.00 Dyspnea, unspecified
CPT/HCPCS: 99349

== ENCOUNTER 2021-11-22 14:05 | Outpatient (CLI) | payer MEDICARE ==
--- NOTE | 2021-11-22 16:34 | CONSULTATION NOTE ---
Palliative Care Follow Up - Referral Referring Provider: Dr. Noam Espinal Time of Visit: 8825-5323 Referral setting: Home Referral Reason: HYpotension/Fatigue/ACP - Information Sources Records reviewed: Previous records reviewed History/Review of Systems obtained from: Patient, Family (spouse/DPOA Bill) Exam limitations: Clinical condition (+STM impairment and fatigue) - History of Present Illness Update Brief HPI Update: This is a 76-year-old female who was seen in acute evaluation today due to to severe hypotension and fatigue with her spouse/DPOA Bill present. Provider were N95 mask. Patient was last seen yesterday, when she presented with severe orthostatic hypotension. She continues to report feeling dyspneic on exertion and dizziness with standing for long periods of time. She denies a cough or shortness of breath at rest. Yesterday, she was hypotensive at rest and significantly orthostatic with standing. She was unable to stand for more than a few seconds before needing to sit down. She continues to desire to sleep most of the day. She ambulates down the hallway she often has to stop at the rocking chair and then will quickly go to her recliner where she "flops down" per her spouse. The patient does not perceive this as any concern. She is adamant about not using her walker with ambulation. Patient is also experiencing cognitive impairment with her memory. Spouse reports that she is most lucid in the evening between 5 and 6 PM lasting for approximately 2 hours. The patient has not had Taxol for the last 2 weeks and her fatigue has plateaued and not improved despite not having an infusion. Today, the patient was to have lab drawl and IV hydration in the [facility] for city 30 a.m. but she was unable to get dressed and kept falling back down on the bed. A second attempt was made for 1 PM however, this was also not being able to be met due to the patient's severe fatigue. Therefore, spouse requested this [employer]PER to present to the home. Past Medical History: Patient has a history of hyperlipidemia, left breast cancer in 2002, left breast lumpectomy a lymph with lymph node dissection in 2002, impaired glucose previously on Metformin and has not been on for many years; T3-T4 laminectomy with tumor resection as well as T2-T6 fusion 04/2021, history of iron deficiency anemia. Social History - Living Situation Living arrangement: At home Living Situation: With spouse/s.o. Support System: Patient grew up on [facility]. She has a brother whom she has been estranged from for a number of years. The patient and her spouse, Ibrahima have been for approximately 52 years. They have 1 son, Riki who resides in [place]. Continues to enjoy the new puppy, [place] that she and her spouse obtained on 11/10. Son Riki to visit next week and his company will allow him to work remotely. Medications/Allergies - Medications Home Medications: Ambulatory Orders Medication Instructions Recorded Confirmed oxyCODONE [Roxicodone] 2.5 - 5 mg PO Q4H PRN 06/12/21 10/11/21 polyethylene glycoL 3350 [Miralax] 17 gm PO DAILY 06/28/21 10/12/21 Naloxone HCl Nasal [Narcan] 4 mg INH PRN PRN MDD as directed 07/06/21 10/04/21 Sennosides/Docusate Sodium [Senna 2 tab PO QPM 07/06/21 10/12/21 Plus 8.6-50 mg Tablet] dexAMETHasone [Decadron] PO DAILY MDD 0.5mg except 0.5mg on 07/18/21 10/12/21 Moreira&Tu Alprazolam [Xanax] 1 tab PO BID PRN 10/02/21 10/12/21 Amitriptyline [Elavil] 10 mg PO QPM 10/10/21 10/12/21 Hyoscyamine [Levsin] 1 tab PO BID PRN 10/10/21 10/11/21 Lidocaine/Prilocain 2.5% Cream 5 applic TOP UD #1 gm 10/13/21 [Emla 2.5% Cream] Prochlorperazine Maleate 10 mg PO Q4HR PRN 10/17/21 10/17/21 [Compazine] oxyCODONE [Roxicodone] 11/09/21 - Allergies Allergies/Adverse Reactions: Allergies Allergy/AdvReac Type Severity Reaction Status Date / Time soybean AdvReac Headache Verified 10/04/21 11:10 Review of Systems - Constitutional Constitutional: reports: Fatigue (spokes reports patient is sleeping the entire day and will be more alert around 6pm before going back to sleep again.), Poor appetite (see HPI), Weight loss. denies: Fever - Ears, Nose & Throat Ears, Nose & Throat: denies: Hearing loss, Mouth lesions - Cardiovascular Cardiovascular: reports: Exertional dyspnea, Decr. exercise tolerance. denies: Chest pain, Edema (noted trace edema to feet and began restarting compression socks again) - Respiratory Respiratory: reports: SOB with exertion. denies: Cough, Wheezing - Gastrointestinal Gastrointestinal: reports: Constipation (see HPI), Other (Poor oral intake, see HPI, s/p nutritional consult 11/07). denies: Abdominal pain, Abdominal distention, Rectal bleeding, Nausea, Vomiting - Musculoskeletal Musculoskeletal: reports: Assistive devices (has a walker but does not consistently use). denies: Joint pain, Transfer issues - Integumentary Integumentary: reports: Other (resolving skin tear right elbow without s/s of infection; bruising) - Neurological Neurological: reports: General weakness, Headache (improved, see HPI), Dizziness (with standing for short period of time), Memory problems - Psychiatric Psychiatric: denies: Other (no longer with mood swings with amitriptyline) - Endocrine Endocrine: reports: Other (impaired fasting glucose previously on metformin "years ago"; hypercalcemia due to metastasis--getting IV hydration) - Hematologic/Lymphatic Hematologic/Lymph: reports: Bruising - All Other Systems All Other Systems: reports: Reviewed and negative (spouse supplemented) Physical Exam - Vital Signs Temperature: 36.7 C Pulse Rate: 124 O2 Saturation: 97 (on RA) Blood Pressure: 96/60 (sitting left arm) - Physical Exam General Appearance: positive: No acute distress, Alert, Cachetic Eyes Bilateral: positive: Normal inspection ENT: positive: No signs of dehydration, Other (+b/l temporal wasting) Neck: positive: Trachea midline, Other (thin) Cardiovascular: positive: Tachycardia Respiratory: positive: No respiratory distress, Breath sounds nml Abdomen: positive: Non-tender, Soft, Nml bowel sounds Skin: positive: Pallor, Other (Skin tear to right elbow with scab formation no discharge or erythema; scattered purpura to chest wall and b/l forearms.) Extremities: positive: No pedal edema Neurologic/Psychiatric: positive: Oriented x3 (short term memory impairment; could not recall what day of the week it was and when repromted later did not recall previous answer; at the end of visit patient called this [employer] WR[employer]PER by wrong name), Mood/affect nml, Weakness Comments/Other: standing BP 81/56 Palliative Care - POLST Patient has POLST: Yes POLST Status: DNR, Selective Treatment - Palliative Care Discussion: Patient presents with high symptom burden related to disease advancement as well as port intake including severe orthostatic hypotension that she is symptomatic from and severe fatigue. Unfortunately due to this overriding fatigue this is impacting her ability to concentrate, make complex medical decisions and pushing her desire to continually go back to bed. Unfortunately, due to the patient's severe fatigue in the setting of a severe symptomatic orthostatic hypotension she was unable to present to the [facility] today for IV hydration. The patient is declining to present to the emergency department and negotiated to have her present to the [facility] tomorrow. However, patient's spouse continues to remain highly concerned, appropriately so given the patient's presentation with not having quality of life. The patient's spouse shared separately that the patient watched suffering of her parents most pacifically with her mother with Alzhei emma's disease and this was something that both he and she discussed at length that they would focus on quality of life is most important. Today, when asking the patient what is most important to her she relayed it is her new puppy, Sallie and her spouse, Ibrahima. However, she continues to articulate that all she needs to do is catch up on sleep to feel better. It was difficult for her to make complex decisions. There may be a point sooner rather than later that the patient's spouse is DPOA will have to assist with making more complex decisions with the assistance of the patient's. In light of the patient's continued decline did reintroduced the role of hospice services however, the patient has a wall up regarding this. She spent time growing up seeing hospice as her mother helped others and therefore has a negative connotation with this. Moving forward would address the team as a "comfort team" to delineate any type of negative thoughts. The patient has always been wanting to worry and look after others. Even today, she expressed concern with not being able to make the MAC visits and this potentially delaying treatment for another. Impression and Recommendations - Palliative Care Impression: This is a joe 76-year-old female with metastatic breast cancer with high symptom burden of anorexia, weight loss, fatigue and orthostatic hypotension. She is severely symptomatic with orthostatic hypotension and therefore we request IV hydration on 11/23 as well as lab work obtainment as it has been 2 weeks since last evaluation. Patient was unable to make appointments today at [facility] for IV hydration. Patient remains quite fragile and at risk for adverse events. Palliative care will continue to provide care coordination, symptom management and anticipatory guidance. Recommendations/Counseling Done: 1. Severely orthostatic hypotension in the setting of chemotherapy and poor oral intake. Blood pressure 96/60 sitting and 81/56 standing. Patient found it difficult to stand. Encourage utilization of walker. Given symptoms we requested CBC with differential and hold pink tube given patient has trending down H&H if anemia is contributing as well as request for IV hydration with 1 L of normal saline to be infused every 3 hours at the [facility] and coordinated again today with FABIANA Treadwell for 1 PM on 11/23/2021. Concerned with the patient being able to make it into the MAC given her severe fatigue. If patient is unable to make in to MAC today discussion at length with patient and spouse regarding ED evaluation and treatment. 2. Fatigue. On no oral antihypertensive medications. Poor oral intake, severe orthostatic hypotension and chemotherapy contributing. Encouraged to change positions slowly. He can continue to encourage oral hydration. 3. Advanced care planning. Patient has POLST in place as DN AR. Likely separate discussion had with spouse regarding if an adverse event were to occur to call EMS and meet personnel at the door with POLST form. Due to the patient's overwhelming fatigue she is unable to make complex decisions at the present time as she cannot think through her desire to return to bed. Optimistic that once patient's son is present in the upcoming days as well as obtainment of IV hydration that the patient will have improvement regarding her fatigue. Again today reviewed benefits versus burdens regarding chemotherapy and patient remains focused on getting to Saturday when she has an oncology appointment and chemotherapy scheduled. At the present time, the patient continues to opt for intervention for quantity of time. Given the patient's continued decline offered informational visit with hospice services which is tentatively scheduled for next Saturday and to present themselves as "comfort team" to avoid any negative connotation. Patient's spouse remains extremely supportive of the patient. Supportive and empathetic listening provided. Total time spent 60 minutes with greater than 50% of the spent in counseling and coordination of care with the patient and spouse; examination the patient, review of advancement of symptoms; anticipatory guidance, review of hypotension; Supportive empathetic listening; coordination with MAC RN. Disclaimer: The chart note was formulated using voice recognition technology and unfortunately sound alike errors may occur.
== END 2021-11-22 14:06 | disposition home or self-care (01) ==
LOC: PC 14:05
PROVIDERS: ATTEND Nurse Practitioner Family
DX: Z51.5 Encounter for palliative care (principal); I95.2 Hypotension due to drugs; T45.1X5A Adverse effect of antineoplastic and immunosuppressive drugs, initial encounter; I95.89 Other hypotension; R53.83 Other fatigue; Z66 Do not resuscitate; R41.3 Other amnesia; R06.00 Dyspnea, unspecified
CPT/HCPCS: 99350

== ENCOUNTER 2021-11-23 12:45 | Outpatient (CLI) | payer MEDICARE ==
--- NOTE | 2021-11-23 18:27 | CONSULTATION NOTE ---
Palliative Care Follow Up - Referral Referring Provider: Dr. Noam Espinal Time of Visit: [id number] [place] setting[place] [facility] Referral Reason: Hypotension/ACP - Information Sources Records reviewed: Previous records reviewed History/Review of Systems obtained from: Patient, Family (spouse/DPOA, Ibrahima) Exam limitations: Clinical condition (+STM impairment, fatigue) - History of Present Illness Update Brief HPI Update: This is a 76-year-old female who presents today at [facility] with her spouse, Ibrahima for IV hydration due to severely symptomatic orthostatic hypotension and discussion regarding advanced care planning. Provider wore N95 mask. Past Medical History: Patient has a history of hyperlipidemia, left breast cancer in 2002, left breast lumpectomy a lymph with lymph node dissection in 2002, impaired glucose previously on Metformin and has not been on for many years; T3-T4 laminectomy with tumor resection as well as T2-T6 fusion 04/2021, history of iron deficiency anemia. Social History - Living Situation Living arrangement: At home Living Situation: With spouse/s.o. Support System: Patient grew up on [facility]. She has a brother whom she has been e stranged from for a number of years. The patient and her spouse, Ibrahima have been for approximately 52 years. They have 1 son, Riki who resides in [place]. Continues to enjoy the new puppy, [place] that she and her spouse obtained on 11/10. Son Riki, to fly into [place] tomorrow and is driving up with his cousin to visit. Medications/Allergies - Medications Home Medications: Ambulatory Orders Medication Instructions Recorded Confirmed oxyCODONE [Roxicodone] 2.5 - 5 mg PO Q4H PRN 06/12/21 10/11/21 polyethylene glycoL 3350 [Miralax] 17 gm PO DAILY 06/28/21 10/12/21 Naloxone HCl Nasal [Narcan] 4 mg INH PRN PRN MDD as directed 07/06/21 10/04/21 Sennosides/Docusate Sodium [Senna 2 tab PO QPM 07/06/21 10/12/21 Plus 8.6-50 mg Tablet] dexAMETHasone [Decadron] PO DAILY MDD 0.5mg except 0.5mg on 07/18/21 10/12/21 Moreira&Tu Alprazolam [Xanax] 1 tab PO BID PRN 10/02/21 10/12/21 Amitriptyline [Elavil] 10 mg PO QPM 10/10/21 10/12/21 Hyoscyamine [Levsin] 1 tab PO BID PRN 10/10/21 10/11/21 Lidocaine/Prilocain 2.5% Cream 5 applic TOP UD #1 gm 10/13/21 [Emla 2.5% Cream] Prochlorperazine Maleate 10 mg PO Q4HR PRN 10/17/21 10/17/21 [Compazine] oxyCODONE [Roxicodone] 11/09/21 - Allergies Allergies/Adverse Reactions: Allergies Allergy/AdvReac Type Severity Reaction Status Date / Time soybean AdvReac Headache Verified 10/04/21 11:10 Review of Systems - Constitutional Constitutional: reports: Fatigue (spokes reports patient is sleeping the entire day and will be more alert around 6pm before going back to sleep again.), Poor appetite, Weight loss. denies: Fever - Cardiovascular Cardiovascular: reports: Exertional dyspnea. denies: Chest pain, Edema (noted trace edema to feet and began restarting compression socks again) - Respiratory Respiratory: reports: SOB with exertion - Gastrointestinal Gastrointestinal: reports: Other (Poor oral intake, s/p nutritional consult 11/07). denies: Abdominal pain - Musculoskeletal Musculoskeletal: reports: Assistive devices (has a walker but does not consis tently use), Transfer issues (today needed a wheelchair as she could not walk into [facility] due to severe fatigue). denies: Joint pain - Neurological Neurological: reports: General weakness, Dizziness (with standing for short period of time), Memory problems - Endocrine Endocrine: reports: Other (impaired fasting glucose previously on metformin "years ago"; hypercalcemia due to metastasis--getting IV hydration) - Hematologic/Lymphatic Hematologic/Lymph: reports: Bruising - All Other Systems All Other Systems: reports: Reviewed and negative (spouse supplemented) Physical Exam - Vital Signs Pulse Rate: 116 O2 Saturation: 94 Blood Pressure: 100/60 (right arm) - Physical Exam General Appearance: positive: No acute distress, Alert, Cachetic Eyes Bilateral: positive: Normal inspection ENT: positive: No signs of dehydration, Other (+b/l temporal wasting) Neck: positive: Other (thin) Skin: positive: Pallor, Other (scattered purpura to chest wall and b/l forearms.) Extremities: positive: No pedal edema Neurologic/Psychiatric: positive: Oriented x3 (short term memory impairment; differs to spouse for assistance with questions and decisions), Mood/affect nml, Weakness Palliative Care - POLST Patient has POLST: Yes POLST Status: DNR, Selective Treatment - Advance Care Planning The patient continues to present with severe symptom burden with fatigue, anorexia, and orthostatic hypotension. Given the above stated symptoms it is difficult for the patient to make complex decisions revolving around her medical management but is able to have input regarding this decision making process. She continues to demonstrate some underlying cognitive impairment. In expression today regarding the patient's wishes she wishes to focus on playing with her new puppy [place] and spending time with her spouse. She is also look ing forward to her son, Riki who comes in from [place] tomorrow. Presently, Riki has an open ended ticket and plans to optimize his time with the patient. The patient continues to focus on others and their needs versus herself. She has always been a individual who has looked after the comfort of others and placed their needs before her own. She expresses a concern that she does not wish to at home and then have her spouse look around to remember where she . The spouse however, wishes to have the patient at home and to optimize their time together as they had planned to be a team until the very end of life. The patient relies on her makenzie regarding this entire time. She expresses that she is "not ready" in relation to the path her journey has taken in relation to her metastatic breast cancer. Oncology input was hospice would be the next best step. This is a little of discussion with the patient that chemotherapy may be contributing more burden than benefit and this is supported by the spouse's observations. The patient often defers to her spouse for assistance with decision-making and recollection. Given weighing benefits versus burdens patient and spouse elected not to proceed forward with Taxol and given the taxing effort it is for the patient to leave the home now requiring wheelchair assistance, she no longer wishes to return to the [facility] for interventions. She expressed recognizing that things are futile. The spouse, Ibrahima, wishes to focus on comfort and have a transition to hospice services however, the patient has past experiences that she has trepidation regarding moving forward to hospice and therefore, offer a hospice informational session at the family home for discussion and support. At this is not a right fit then palliative care will continue to provide support until end-of-life. Time spent on Advance Care Planning (min): 30 (with patient and spouse, Ibrahima) Impression and Recommendations - Palliative Care Impression: This is a joe 76-year-old female with metastatic breast cancer with high symptom burden of anorexia, weight loss, fatigue, and severe orthostatic hypotension. She remains severely symptomatic with orthostatic hypotension and is receiving 1 L of normal saline for IV hydration today, 11/23/2021. She and her spouse decline lab draw and further chemotherapy moving forward. Patient wishes to focus onQuality of time with her family. She remains hesitant regarding transition to hospice services but is open to her family having a hospice informational visit next week. Palliative care will continue to provide care coordination, symptom management and anticipatory guidance. Recommendations/Counseling Done: 1. Severely orthostatic hypotension in the setting of chemotherapy and poor oral intake. Today, blood pressure mildly improved at 100/60 sitting however, due to patient's difficulty with standing unable to obtain standing blood pressure today for 2 orthostatics. She is receiving 1 L of normal saline for IV hydration. Discussed obtainment of CBC with differential and and if required blood transfusion would would need to return tomorrow, 11/24 to [facility]. Patient and spouse do not wish to proceed with lab work obtainment as the patient no longer wishes to return to the [facility] due to the taxing effort it takes on her and wishes to optimize her time at home with her family. 2.Fatigue. On no oral antihypertensive medications. Poor oral intake, severe orthostatic hypotension and chemotherapy contributing. Due to her significant fatigue and orthostatic hypotension is difficult for the patient to ambulate even short distances. Hopeful that IV hydration today will improve some of her underlying fatigue. 3. 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 Treatments with Taxol has been palliative in intent. Has a history of left breast cancer originally diagnosed in 2002. In discussion with oncology, hospice services and that is the next best step. Patient and spouse wish to discontinue Taxol Moving forward. We will update oncologist. 4. Advanced care planning. Plan patient has POLST in place as DN AR/D and I was selective interventions. Patient is expressing that she does not wish to come back to the [facility] and wishes to optimize her time at home. Presently, she is reluctant to accept hospice services as she is "not ready" despite her spouse reporting the need for additional support. Given this expression, patient is open to having an informational session at the home for her family with hospice services. The patient has prior experiences related to hospice given some of her anteversion. Of note, the patient is having impaired cognition likely due to her severe orthostatic hypotension, chemotherapy and significant fatigue and therefore, needs assistance with complex decision making and this defaults to her spouse/DPOA, Ibrahima. Ibrahima continues to desire the patient's input regarding decision making however, he wishes to ensure her comfort at home. Hospice informational visit set for Saturday afternoon. Supportive and empathetic listening provided. CPT 62313 Time spent 40 minutes with 30 minutes regarding advanced care planning with patient and spouse. Disclaimer: The chart note was formulated using voice recognition technology and unfortunately sound alike errors may occur.
== END 2021-11-23 12:46 | disposition home or self-care (01) ==
LOC: PC 12:45
PROVIDERS: ATTEND Nurse Practitioner Family
DX: Z51.5 Encounter for palliative care (principal); I95.2 Hypotension due to drugs; T45.1X5A Adverse effect of antineoplastic and immunosuppressive drugs, initial encounter; R53.83 Other fatigue; C50.919 Malignant neoplasm of unspecified site of unspecified female breast; C79.51 Secondary malignant neoplasm of bone; R63.0 Anorexia; R41.89 Other symptoms and signs involving cognitive functions and awareness; R06.00 Dyspnea, unspecified; Z66 Do not resuscitate
CPT/HCPCS: 99497